=== PATIENT | male | born 1940 | race Caucasian/White ===

== ENCOUNTER 2017-11-10 13:51 | Inpatient (IN) | payer MEDICARE ==
--- OUTSIDE RECORDS SUMMARY | 2017-11-10 14:10 | XMS REPORT ---
:1940 External Reference #:[id number] Author Organization [facility] Address [address] [place] [address] Phone [phone] Care Team Providers Name Role Phone Yossi Vogel MD Care Team Information Piping Supervisor Unavailable Yossi Vogel MD Primary Care Physician Unavailable Payers Type Date Identification Numbers Payment Provider Subscriber Commercial Effective: Policy Number: Medicare Jewel clarence Hanson 2017 [id number] Group Number: [id number] [address] [address] Group Name: [place] [address] PayID: [id number] Problems Description No Information Family History Date Family Member(s) Problem(s) Comments Father due to [place] () - age 68 Social History Type Date Description Comments Smoking Patient is a former smoker Allergies, Adverse Reactions, Alerts Date Description Reaction Status Severity Comments 11/06/2017 NKDA active Nkma active Medications Medication Date Status Form Strength Qnty SIG Indications Ordering Provider Livalo 11/06/ Active Tablets 1mg 30tab one po daily I73.9 Yossi Santillan 2018 s Mk sotelo MD Spiriva 11/06/ Active Capsules 18mcg 30cap inhale once J44.9 Yossi Santillan Handihaler 2018 s daily. Mk sotelo MD Ramipril / Active Capsules 2.5mg 1 by mouth Unknown 0000 every day Cialis / Active Tablets 20mg take one-half Unknown 0000 to one tablet by mouth as needed Clopidogrel / Active Tablets 75mg 1 by mouth Unknown Bisulfate 0000 every day Epipen 2-Riccardo / Active Solution 0.3mg/0.3 use as Unknown 0000 Auto-Inje ML directed for ct anaphylaxis - wheat allergy Glipizide / Active Tablets 5mg take one Unknown 0000 tablet by mouth twice a daytwo tabs before breakfast Lantus / Active Solution 100Unit/M inject 12 Unknown 0000 L units at bedtime, up to 30 units TDD Nitroglycerin / Active Patches 0.4mg/HR take one Unknown 0000 24HR sublingually with chest pain - can repeat x3 Advil / Active Capsules 200mg 1/2 tab daily Unknown 0000 for pain BD Insulin / Active Misc 31G X once daily Unknown Syringe 0000 516" 0.5 with Lantus Ultrafine ML II/Short/0.5ML/ 31G X 5/16" Freestyle Lite / Active Strips test BG three Unknown Test 0000 times daily Immunizations CPT Code Status Date Vaccine Lot # [id number] Given 11/06/2017 Pneumococcal Conjugate Vacc-13 [id number] Vital Signs Date Vital Result Comment 11/06/2017 BP Systolic 160 mmHg BP Diastolic 92 mmHg Heart Rate 92 /min Body Temperature 97.3 F Height 68 inches 5'8" Weight 145.00 lb BMI (Body Mass Index) 22.0 kg/m2 11/04/1997 BP Systolic 140 mmHg BP Diastolic 84 mmHg Body Temperature 97.3 F Height 69.00 inches 5'9" Weight 167.00 lb Right Visual Acuity Distance 20/20/20 Left Visual Acuity Distance 20/20/20 Results Description No Information Procedures Description No Information Plan of Care Future Appointment(s):12/11/2017 8:40 am - Yossi [facility] at [facility] Ifzthb9711/06/2017 - Yossi Vogel MDI73.9 Peripheral vascular disease, unspecifiedNew Medication:Livalo 1 mgJ44.9 Chronic obstructive pulmonary disease, unspecifiedNew Medication:Spiriva Handihaler 18 mcgNew Xrays: Pulmonary Function, Spirometry, pre- and post bronchodilatorCT Chest W/O ContrastFollow up:one [id number] Encounter for immunization
[2017-11-10 14:22] LABS: ABS Basophils 0 10^3/ul (0-0.2); ABS Eosinophils 0 10^3/ul (0-0.6); ABS Lymphocytes 1.3 10^3/ul (1.0-4.8); ABS Monocytes 0.7 10^3/ul (0-0.8); ABS Neutrophils 10.1 10^3/ul (1.5-7.7); ABS Nucleated RBC 0 10^3/ul; Eosinophil % 0.1 % (0-6); Hematocrit 35 % (42-52); Hemoglobin 11.5 g/dl (14.0-18.0); Lymphocyte % 10.9 % (25-47); Mean Corpuscular HGB Conc 33 g/dl (31-36); Mean Corpuscular Hemoglobin 26 pg (27-31); Mean Corpuscular Volume 78 fL (80-94); Mean Platelet Volume 6 um3 (7.4-10.4); Nucleated Red Blood Cells % 0; Platelet Count 729 10^3/ul (150-450); Red Blood Count 4.43 10^6/ul (4.0-5.4); Red Cell Distribution Width 14 % (10.5-15); White Blood Count 12.2 10^3/ul (3.5-10.8)
[2017-11-10 14:39] LABS: EGFR Non-African American 57.3 (>60); INR 1.12 (0.77-1.02)
[2017-11-10] MEDS ORDERED: Heparin for STEMI(*) 5,000 UNITS/ML 1 ML VIAL IV ONE (14:51)
[2017-11-10] MEDS ORDERED: Aspirin Low Dose CHEW TAB* 81 MG PO ONE (14:51)
--- NOTE | 2017-11-10 15:02 | RAD ---
INDICATION: Shortness of breath. COMPARISON: Comparison is made with prior chest x-ray study from December 10, 2015. TECHNIQUE: A portable view of the chest was obtained. FINDINGS: Cardiac and mediastinal contours appear to be within normal limits. There is diffuse prominence of the interstitial markings and a small right pleural effusion which are new from the prior study. IMPRESSION: FINDINGS MOST CONSISTENT WITH CONGESTIVE HEART FAILURE.
[2017-11-10] MEDS ORDERED: Metoprolol Tartrate IV* 1 MG/ML 5 ML VIAL IV ONE (15:04)
[2017-11-10] MEDS ORDERED: Metoprolol Tartrate IV* 1 MG/ML 5 ML VIAL ONE (15:06)
[2017-11-10] MEDS ORDERED: Heparin(*) 1000 UNIT/ML 10 ML VIAL CATH LAB IV ONE (15:13)
[2017-11-10] MEDS ORDERED: fentaNYL* 50 MCG/ML 2 ML VIAL (100 MCG VIAL) ONE (15:13)
[2017-11-10] MEDS ORDERED: Lidocaine 1% INJ* 10 MG/ML 30 ML SDV ONE (15:14)
[2017-11-10] MEDS ORDERED: nitroGLYCERIN DRIP* 0 MCG/0 ML BTL ONE (15:14)
[2017-11-10] MEDS ORDERED: Heparin 2 UNITS/ML IVPREMIX* 3,000 ML IV ONE (15:14)
[2017-11-10] MEDS ORDERED: Midazolam* 1 MG/ML 10 ML VIAL (10 MG) ONE ×2 (15:14→15:47)
[2017-11-10] MEDS ORDERED: Iohexol 350 (CONTRAST) 200 ML MDV IV ONE (15:16)
[2017-11-10] MEDS ORDERED: Iodixanol* (CONTRAST) 320 MG/ML 100 ML SDV ONE ×3 (15:17→16:21)
[2017-11-10] MEDS ORDERED: nitroGLYCERIN DRIP* 25,000 MCG/250 ML BTL ONE ×2 (15:50→17:16)
[2017-11-10] MEDS ORDERED: Bivalirudin(*) 250 MG VIAL ONE (15:55)
[2017-11-10] MEDS ORDERED: NS 0.9% 1000 ML* 1,000 ML IV SCH (17:30)
[2017-11-10] MEDS ORDERED: Furosemide IV* 10 MG/ML 2 ML VIAL (20 MG) ONE (17:53)
[2017-11-10] MEDS ORDERED: Furosemide IV* 10 MG/ML 2 ML VIAL (20 MG) IV ONE (17:53)
--- NOTE | 2017-11-10 18:36 | ED ---
Elizabeth Mckeon Nilda, scribed for Anastacio Alejandro MD on 11/10/17 at 1400 . Respiratory - HPI Summary HPI Summary: This patient is a 77 year old M BIBA with a chief complaint of SOB since earlier today. Per EMS, on arrival, pt was found tachycardic and unresponsive. EMS did synchronized cardioversion. Pt became aystolic with 1 minute of CPR. Pt became responsive. He states he currently has no memory of what happened. The patient rates the pain 0/10 in severity. Symptoms aggravated by nothing. Patient denies current CP and SOB. - History of Current Complaint Stated Complaint: UNRESPONSIVE Hx Obtained From: Patient, EMS Onset/Duration: Sudden Onset, Lasting Minutes, Resolved Current Severity: None Pain Intensity: 0 Aggravating Factor(s): Nothing Associated Signs and Symptoms: SOB - resolved - Allergy/Home Medications Allergies/Adverse Reactions: Allergies Allergy/AdvReac Type Severity Reaction Status Date / Time wheat Allergy Palpitation Verified 11/10/17 14:20 s Home Medications: Home Medications Clopidogrel TAB* [Plavix TAB*] 75 mg PO DAILY 11/10/17 [History Confirmed ] Insulin GLARGINE(*) [Lantus(*)] 12 - 14 units SUBCUT DAILY 11/10/17 [History Confirmed 11/10/17] Nitroglycerin TAB 0.4 MG* 0.4 mg SL Q5M PRN 11/10/17 [History Confirmed 11/10/17 ] Tiotropium CAP.INH* [Spiriva CAP.INH*] 1 cap.inh INH DAILY 11/10/17 [History Confirmed 11/10/17] PMH/Surg Hx/FS Hx/Imm Hx Endocrine/Hematology History: Reports: Hx Diabetes Cardiovascular History: Reports: Hx Aneurysm, Hx Hypercholesterolemia, Hx Hypertension, Hx Rheumatic Fever, Other Cardiovascular Problems/Disorders Denies: Hx Pacemaker/ICD Respiratory History: Reports: Hx Chronic Obstructive Pulmonary Disease (COPD), Other Respiratory Problems/Disorders - EMPHYSEMA History: Reports: Hx Benign Prostatic Hyperplasia, Other Problems/ Disorders - bph Musculoskeletal History: Reports: Hx Arthritis, Other Musculoskeletal History - arthritis-osteo Sensory History: Reports: Hx Contacts or Glasses Denies: Hx Hearing Aid Opthamlomology History: Reports: Hx Contacts or Glasses Neurological History: Reports: Hx Transient Ischemic Attacks (TIA), Other Neuro Impairments/Disorders - HX OF LANDRY ANEURYSM Psychiatric History: Denies: Hx Panic Disorder - Surgical History Surgery Procedure, Year, and Place: carotid endarterectomy right/right arm orif Hx Anesthesia Reactions: No - Social History Alcohol Use: None Substance Use Type: Reports: None Hx Tobacco Use: Yes - QUIT APPROX 12YRS AGO Smoking Status (MU): Former Smoker Review of Systems Positive: Other - tachycardic . Negative: Chest Pain Positive: Shortness Of Breath - resolved Neurological: Other - unresponsive (resolved) All Other Systems Reviewed And Are Negative: Yes Physical Exam - Summary Physical Exam Summary: VITAL SIGNS: Reviewed. GENERAL: Patient is a well-developed and nourished elderly who is lying comfortable in the stretcher in [facility]. Patient is not in any acute respiratory distress. HEAD AND FACE: No signs of trauma. No ecchymosis, hematomas or skull depressions. No sinus tenderness. EYES: PERRLA, EOMI x 2, No injected conjunctiva, no nystagmus. EARS: Hearing grossly intact. Ear canals and tympanic membranes are within normal limits. MOUTH: Oropharynx within normal limits. NECK: Supple, trachea is midline, no adenopathy, no JVD, no carotid bruit, no c- spine tenderness, neck with full ROM. CHEST: Symmetric, no tenderness at palpation LUNGS: Clear to auscultation bilaterally. No wheezing or crackles. CVS: Regular rate and rhythm, S1 and S2 present, no murmurs or gallops appreciated. ABDOMEN: Soft, non-tender. No signs of distention. No rebound no guarding, and no masses palpated. Bowel sounds are normal. EXTREMITIES: FROM in all major joints, no edema, no cyanosis or clubbing. NEURO: Alert and oriented x 3. No acute neurological deficits. Speech is normal and follows commands. SKIN: Dry and warm Triage Information Reviewed: Yes Vital Signs On Initial Exam: Initial Vitals Pulse Resp BP Pulse Ox 99 20 155/76 99 11/10/17 14:00 11/10/17 14:00 11/10/17 14:00 11/10/17 14:00 Vital Signs Reviewed: Yes Diagnostics - Vital Signs Vital Signs Temp Pulse Resp BP Pulse Ox 11/10/17 16:27 98.0 F 99 18 112/77 100 11/10/17 15:10 106 22 97 02/02/18 15:05 103 20 98 11/10/17 15:00 106 24 150/74 99 11/10/17 14:55 99 20 99 11/10/17 14:50 92 19 99 11/10/17 14:45 95 19 99 11/10/17 14:30 96 17 135/69 98 11/10/17 14:25 101 19 98 11/10/17 14:24 140/67 11/10/17 14:11 97.6 F 104 20 155/83 99 11/10/17 14:00 99 20 155/76 99 - Laboratory Lab Results: Lab Results 11/10/17 11/10/17 11/10/17 Range/Units 14:08 14:08 14:08 WBC (3.5-10.8) 10^3/ul RBC (4.0-5.4) 10^6/ul Hgb (14.0-18.0) g/dl Hct (42-52) % MCV (80-94) fL MCH (27-31) pg MCHC (31-36) g/dl RDW (10.5-15) % Plt Count (150-450) 10^3/ul MPV (7.4-10.4) um3 Neut % (Auto) (38-83) % Lymph % (Auto) (25-47) % Baca % (Auto) (1-9) % Eos % (Auto) (0-6) % Baso % (Auto) (0-2) % Absolute Neuts (auto) (1.5-7.7) 10^3/ul Absolute Lymphs (auto) (1.0-4.8) 10^3/ul Absolute Monos (auto) (0-0.8) 10^3/ul Absolute Eos (auto) (0-0.6) 10^3/ul Absolute Basos (auto) (0-0.2) 10^3/ul Absolute Nucleated RBC 10^3/ul Nucleated RBC % INR (Anticoag Therapy) 1.12 H (0.77-1.02) APTT 29.3 (26.0-36.3) seconds D-Dimer, Quantitative 986 H (Less Than 230) ng/mL Sodium 129 L (133-145) mmol/L Potassium 4.1 (3.5-5.0) mmol/L Chloride 95 L (101-111) mmol/L Carbon Dioxide 24 (22-32) mmol/L Anion Gap 10 (2-11) mmol/L BUN 33 H (6-24) mg/dL Creatinine 1.22 H (0.67-1.17) mg/dL Est GFR ( Amer) 73.7 (>60) Est GFR (Non-Af Amer) 57.3 (>60) BUN/Creatinine Ratio 27.0 H (8-20) Glucose 334 H (70-100) mg/dL Lactic Acid (0.5-2.0) mmol/L Calcium 9.4 (8.6-10.3) mg/dL Magnesium 2.2 (1.9-2.7) mg/dL Total Bilirubin 0.50 (0.2-1.0) mg/dL AST 32 (13-39) U/L ALT 30 (7-52) U/L Alkaline Phosphatase 92 (34-104) U/L Total Creatine Kinase 68 (10-223) U/L CK-MB (CK-2) 8.4 H (0.6-6.3) ng/mL Troponin I 3.47 H* (<0.04) ng/mL B-Natriuretic Peptide 1044 H ( - 100) pg/mL Total Protein 7.0 (6.4-8.9) g/dL Albumin 3.1 L (3.2-5.2) g/dL Globulin 3.9 (2-4) g/dL Albumin/Globulin Ratio 0.8 L (1-3) TSH 2.51 (0.34-5.60) mcIU/mL 18 11/10/17 Range/Units 14:08 14:08 WBC 12.2 H (3.5-10.8) 10^3/ul RBC 4.43 (4.0-5.4) 10^6/ul Hgb 11.5 L (14.0-18.0) g/dl Hct 35 L (42-52) % MCV 78 L (80-94) fL MCH 26 L (27-31) pg MCHC 33 (31-36) g/dl RDW 14 (10.5-15) % Plt Count 729 H (150-450) 10^3/ul MPV 6 L (7.4-10.4) um3 Neut % (Auto) 82.7 (38-83) % Lymph % (Auto) 10.9 L (25-47) % Baca % (Auto) 5.9 (1-9) % Eos % (Auto) 0.1 (0-6) % Baso % (Auto) 0.4 (0-2) % Absolute Neuts (auto) 10.1 H (1.5-7.7) 10^3/ul Absolute Lymphs (auto) 1.3 (1.0-4.8) 10^3/ul Absolute Monos (auto) 0.7 (0-0.8) 10^3/ul Absolute Eos (auto) 0 (0-0.6) 10^3/ul Absolute Basos (auto) 0 (0-0.2) 10^3/ul Absolute Nucleated RBC 0 10^3/ul Nucleated RBC % 0 INR (Anticoag Therapy) (0.77-1.02) APTT (26.0-36.3) seconds D-Dimer, Quantitative (Less Than 230) ng/mL Sodium (133-145) mmol/L Potassium (3.5-5.0) mmol/L Chloride (101-111) mmol/L Carbon Dioxide (22-32) mmol/L Anion Gap (2-11) mmol/L BUN (6-24) mg/dL Creatinine (0.67-1.17) mg/dL Est GFR ( Amer) (>60) Est GFR (Non-Af Amer) (>60) BUN/Creatinine Ratio (8-20) Glucose (70-100) mg/dL Lactic Acid 2.5 H* (0.5-2.0) mmol/L Calcium (8.6-10.3) mg/dL Magnesium (1.9-2.7) mg/dL Total Bilirubin (0.2-1.0) mg/dL AST (13-39) U/L ALT (7-52) U/L Alkaline Phosphatase (34-104) U/L Total Creatine Kinase (10-223) U/L CK-MB (CK-2) (0.6-6.3) ng/mL Troponin I (<0.04) ng/mL B-Natriuretic Peptide ( - 100) pg/mL Total Protein (6.4-8.9) g/dL Albumin (3.2-5.2) g/dL Globulin (2-4) g/dL Albumin/Globulin Ratio (1-3) TSH (0.34-5.60) mcIU/mL Result Diagrams: 11/10/17 14:08 11/10/17 14:08 Lab Statement: Any lab studies that have been ordered have been reviewed, and results considered in the medical decision making process. - Radiology CXR Radiology Interpretation Completed By: Radiologist - CXR, per radiologist, reveals findings most consistent with CHF. Dr. Alejandro reviewed this report. - EKG 1353 Cardiac Rate: Tachycardia EKG Rhythm: Sinus Tachycardia - 106 bpm EKG Interpretation: ST depression and T wave inversion in V2-V6 consistent w/ acute lateral MD Disposition - Course Assessment/Plan: This patient is a 77 year old M BIBA with a chief complaint of SOB since earlier today. Per EMS, on arrival, pt was found tachycardic and unresponsive. Pt became asystolic with 1 minute of CPR. They reported one episode of V tach EMS did synchronized cardioversion. Pt became responsive and A+O. He states he currently has no memory of what happened. The patient rates the pain 0/10 in severity. Symptoms aggravated by nothing. Patient denies current CP and SOB. EKg showed an ST depression and T wave inversion in the lateral leads consisting with acute lateral MD. Trop 3.47. [1431] Dr. Light (manager switch) agrees to review the case. [1500] Dr. Grant ( ventilating equipment installer) will take pt to [place] lab technician for ST elevation. In the ED course, the patient was given aspirin, Heparin, and Metoprolol. The pt is hemodynamically stable, alert and oriented x3. - Differential Dx - Cardiopulmonary Differential Diagnoses - Cardiopulmonary: Atrial Fibrillation, Atrial Flutter, Exacerbation Of COPD, Paroxysmal SVT, Paroxysmal VT - Diagnoses Provider Diagnoses: Acute myocardial infarction, Renal failure, Increased D Dimer, Hyperglycemia - Physician Notifications Discussed Care Of Patient With: John Grant - interventionalist Time Discussed With Above Provider: 15:00 Instructed by Provider To: Admit As Inpatient - to corn lab technician - Critical Care Time Critical Care Time: 30-74 min Discharge - Discharge Plan Condition: Stable Disposition: ADMITTED TO [facility] The documentation as recorded by the Elizabeth montano Nilda accurately reflects the service I personally performed and the decisions made by me, Anastacio Alejandro MD.
[2017-11-10 20:19] VITALS: BP 157/83
--- NOTE | 2017-11-12 10:21 | CATH ---
CC: Dr. Yossi Giles, [facility]; Dr. Trenton Muniz * CARDIAC CATHETERIZATION REPORT: DATE OF PROCEDURE: 11/10/17 - ROOM #ICU-12 REASON FOR CARDIAC CATHETERIZATION: The patient with history of shortness of breath, now presents with having had a syncopal episode with sustained wide complex tachycardia assumed to be ventricular tachycardia, successfully cardioverted in the field, with transient 1-minute CPR compression, to assess for the presence of significant coronary artery disease with abnormal EKG showing T wave inversions in the mid-to-late precordial leads of I and aVL. PROCEDURE: Coronary arteriography, left heart catheterization, left ventriculography. DESCRIPTION OF PROCEDURE: The patient was interviewed and examined in the emergency room where the risks and benefits were explained to him. He understood them and wished to proceed. Of note, the patient has been on chronic clopidogrel therapy and received a full dose aspirin in the emergency room as well as 4000 units of heparin and 2.5 mg of Lopressor intravenously. Medications given during the cardiac catheterization included institution of a nitroglycerin drip, advanced to 4 mcg per minute by the end of the case, and low -dose Versed. The equipment utilized was a 6.5-Syrian Merit sheath in addition to a 5-Syrian 4 right Kristen diagnostic catheter and a 5-Syrian 4 curve left Kristen catheter. Of note, to get better visualization of the left main with better angulation, a 4.5 curve FL Kristen 5-Syrian catheter was utilized. Left heart catheterization was performed utilizing a 5-Syrian angled pigtail catheter. Hemostasis technique at the end of the case was with manual compression due to the significant vascular disease within the femoral area including the ostium of the profunda branch, as well as the superficial left femoral artery. The total contrast used was 110 cc of Visipaque dye. Radiation exposure included 11.1 minutes of fluoro time. The air kerma radiation was 978 milligray. The DAP radiation was 5762 microgray per meter squared. Laboratory results prior to cardiac catheterization included hemoglobin and hematocrit of 11.5 and 35. The BUN and creatinine was 33 and 1.2. The potassium was 4.1 and sodium was 129. The total CPK was 68, the MB was 8.4. Troponin was 3.47. B-natriuretic peptide was 1044. Lactic acid was 2.5. RESULTS: HEMODYNAMIC DATA: Left heart catheterization - Central aortic pressure was recorded at 140/63 with a mean of 95, left ventricular pressure 137, with a left ventricular end- diastolic pressure of 31 to 34 mmHg. LEFT VENTRICULOGRAPHY: Performed in the MORENO projection, revealed severe global left ventricular hypokinesis globally, with overall EF estimated at 25% to 30%. Of note, the most proximal portion of the anterior wall had normal contractility. The rest of the ventricle had severe hypokinesis with virtual akinesis of the high anterolateral wall. CORONARY ARTERIOGRAPHY: A. Right coronary artery - totally occluded proximal with bridging collaterals noted filling the mid portion of the vessel with competitive flow seen to the mid- to-distal portion. The length of total occlusion appear to be long in nature. B. Left coronary artery. 1. Left main - of note, there was calcium seen at the ostium of the left main. In most views, the left main appeared to have lziy-qw-rqeabbwl disease at most. However, intermittent mild damping was noted with catheter placement. Utilization of the 4.5 curve with a better angulation to the left main still produced very mild dampening. Of note, there was no true ventricularization of the pressure tracing and reflux was noted whenever the catheter was inserted. Subselective injections were made as well around the left main from just below it in an attempt to visualize the flow better. 2. Left anterior descending artery. A diffusely diseased vessel throughout the course of the vessel. In the proximal portion there was mild-to- moderate disease with 35% to 40% narrowing noted, with calcification, just after the first septal casket trimmer with a moderate area of 45% to 50% narrowing. In the mid segment, there was an area of narrowing as much as 65% to 70% noted. Past this point was another area of 55% to 60% narrowing in the mid-to- distal area. The artery went on to supply the apex and distal inferior wall. Of note, in general, the pno-xq-lfltvm diagonal branches appeared to be small caliber and diffusely diseased. The first diagonal branch of the left anterior descending artery was a thin caliber vessel with an area of 90% to 95% stenosis. It should be noted that it did supply the anterolateral toward apical region. It did not appear to be a vessel for which primary intervention could be attempted. 3. Circumflex artery - a nondominant vessel supplying a very high first obtuse marginal branch, which had moderate diffuse disease throughout its proximal portion with calcium as well. The degree of luminal reduction appeared to be approximately 45% to 50%. In the vnx-zc-nnqfds portion of this vessel, there was an abrupt caliber change of at least 55% to 60% to a very thin distal vessel. Immediately following this area in the circumflex was a diffusely diseased area of 75% to 80% narrowing leading to the rest of the circumflex, which supplied multiple very small caliber obtuse marginal branches and ending in a low-lying posterior left ventricular branch. The diffuse nature of disease is highly suggestive of diffuse involvement from diabetes. OVERALL ASSESSMENT: Significant multi-vessel coronary artery disease, as described, with abnormal mild damping of the left main despite most views by angiography suggesting no critical narrowing of it. In light of the significant left ventricular systolic dysfunction and elevated left ventricular end-diastolic pressure, at this point in time he is quite hemodynamically stable and discussion was held with [facility] as far as transferring him up for stabilization and eventual consideration for perhaps IVUS analysis and possibly intervention to the left main and the LAD. Of note, I do not know if he is a bypass candidate given the very diffuse nature of disease and small caliber nature of the vessels. Given these findings, I am not convinced long-term bypass surgery would be his best option. Perhaps, if significant left main disease is actually found, stenting of the left main after perhaps a rotational atherectomy may be an option if heavy calcified burden is present. In general, his arteries are diffusely diseased, most likely on the basis of his diabetes. Of note, he dose have chronic obstructive lung disease, which may become more high risk for an open heart surgery if that was to be pursued. Clearly, at this point in time, transfer to a higher level care center that could perform all of the above assessments and make the appropriate decision for continued care is paramount to his stabilization from his cardiac status. Discussion was made with the interventional on-call physician, Dr. Severino Killian. He was of great assistance in contacting the transfer service to initiate transfer of the patient. For now, we will maintain him on intravenous nitroglycerin and we will give him Lasix IV for his elevated left ventricular end- diastolic pressure. His chest x-ray does have evidence of congestive heart failure. Hemodynamically, he is stable and asymptomatic with excellent oxygenation on low-dose supplemental oxygen. [id number]/[facility] #: [id number] [facility]
== END 2017-11-10 20:10 | disposition short-term general hospital (02) | DRG 282 ==
LOC: ED 13:51 → CHICATH 15:44 → ICU 17:24
PROVIDERS: ADMIT Internal Medicine Cardiovascular Disease; ATTEND Internal Medicine Cardiovascular Disease
PROC: B211YZZ Fluoroscopy of Multiple Coronary Arteries using Other Contrast (ICD-10-PCS; 2017-11-10)
PROC: B215YZZ Fluoroscopy of Left Heart using Other Contrast (ICD-10-PCS; 2017-11-10)
PROC: 4A023N7 Measurement of Cardiac Sampling and Pressure, Left Heart, Percutaneous Approach (ICD-10-PCS; principal; 2017-11-10 15:00)
DX: I21.3 ST elevation (STEMI) myocardial infarction of unspecified site (principal); I71.2 Thoracic aortic aneurysm, without rupture; E11.9 Type 2 diabetes mellitus without complications; I25.119 Atherosclerotic heart disease of native coronary artery with unspecified angina pectoris; I11.9 Hypertensive heart disease without heart failure; E78.5 Hyperlipidemia, unspecified; J44.9 Chronic obstructive pulmonary disease, unspecified; N40.0 Benign prostatic hyperplasia without lower urinary tract symptoms; M19.90 Unspecified osteoarthritis, unspecified site; Z86.73 Personal history of transient ischemic attack (TIA), and cerebral infarction without residual deficits; Z91.018 Allergy to other foods; Z79.4 Long term (current) use of insulin; Z79.899 Other long term (current) drug therapy
CPT/HCPCS: 36415; 71045; 80053; 82550; 82553; 83605; 83735; 83880; 84443; 84484; 85025; 85379; 85610; 85730; 93005; 93458; 96374; 96375; 99156; 99157; 99285; A9270-GY; C1769; J0583; J1644; J1940; J2250; J3010; J3490

== ENCOUNTER 2017-12-13 15:09 | Inpatient (IN) | payer MEDICARE ==
[2017-12-13] MEDS ORDERED: NS 0.9% 1000 ML* 1,000 ML IV ONE (15:13)
--- OUTSIDE RECORDS SUMMARY | 2017-12-13 15:14 | XMS REPORT ---
:1940 External Reference #:[id number] Author Organization [facility] Address [address] [address] Phone [phone] Care Team Providers Name Role Phone Trenton Muniz MD Primary Care Physician Unavailable Payers Type Date Identification Numbers Payment Provider Subscriber Health Maintenance Policy Number: Medicare Blue Ppo Hugo Gaxiola (O) [id number] PayID: [id number] [address] [address] [place] [address] Problems Description No Information Family History Date Family Member(s) Problem(s) Comments : (age 68 Years) Father due to AR : (age 87 Years) Mother due to Natural Causes hx AR Siblings 1 Social History Type Date Description Comments Marital Status Single Lives With Girlfriend Lives With Girlfriend 3/2 pt presently rehab at [facility] ETOH Use Denies alcohol use ETOH Use Denies alcohol use drank heavily in the past Smoking Patient is a former smoker Recreational Drug Use Denies Drug Use Smoking Patient is a former smoker quit 2004 Daily Caffeine Consumes on average 2 cups of regular coffee per day Exercise Type/Frequency Does not exercise Allergies, Adverse Reactions, Alerts Date Description Reaction Status Severity Comments 05/10/2006 Lipitor active epistaxis 12/08/2017 Wheat Germ Oil active Medications Medication Date Status Form Strength Qnty SIG Indications Ordering Provider Torsemide 12/08 Active Tablets 20mg 30tab 2 by mouth I50.22 s daily Aura Flores M.D. Metoprolol 12/08 Active Tablets ER 25mg 180ta 1 by mouth Antonio Succinate ER 24HR bs twice a day Aura Flores M.D. Oxygen 12/08 Active Misc 2L 1unit please use o2 s at 2l/min at F. all times Del Flores Aspirin Active Tablets 81mg 1 by mouth Unknown Enteric Coated /0000 every day Humulin 70/30 Active Suspension (70-30)10 Coverage from Unknown /0000 0Unit/ML 151-450 BG Lantus Active Solution 100Unit/M 15u at hs Unknown Solostar /0000 Pen-Inject L Spiriva Active Capsules 18mcg 1 unit Unknown Handihaler /0000 inhalation daily Prednisone Active Tablets 5mg take 8 tabs Unknown /0000 by mouth daily for 3 days, then 4 tabs daily for 3 days then 2 tabs for 3 days then 1 tab for 3 days then d/c Atorvastatin Active Tablets 20mg take 1 tablet Unknown Calcium /0000 at bedtime Clopidogrel Active Tablets 75mg 1 by mouth Unknown Bisulfate / every day Amiodarone HCL Active Tablets 200mg 30tab 1 by mouth Antonio s once a day Aura Flores M.D. Glipizide ER Active Tablets ER 5mg 1 by mouth Unknown /0000 24HR bid Altace 05/10 Hx Capsules 10mg 30cap 1 PO qd lior Flores, 12/07.D Glyburide 05/10 Hx Tablets Unsure 30tab 1 po qd lior Flores, 12/07 takes .D sporadically Zocor 05/10 Hx Tablets Unsure 30tab One QHS lior Flores, 12/07.D Metformin Hx Tablets 1,000mg 1 by mouth Unknown /0000 twice a day - 12/07 Atenolol Hx Tablets 25mg 1 tablet by Unknown /0000 mouth every - day 12/07 Metoprolol Hx Tablets ER 50mg 1 by mouth Unknown Succinate ER /0000 24HR bid - 12/08 Furosemide 00 Hx Tablets 80mg 1 by mouth Unknown /0000 daily - 12/08 Vital Signs Date Vital Result Comment 12/08/2017 Heart Rate 60 /min BP Systolic Sitting 138 mmHg Ra, reg cuff BP Diastolic Sitting 62 mmHg Ra, reg cuff O2 % BldC Oximetry 98 % 2L 05/10/2006 Height 70 inches 5'10" Weight 163.00 lb Heart Rate 74 /min BP Systolic Sitting 178 mmHg left arm, right arm 180/96 BP Diastolic Sitting 90 mmHg left arm, right arm 180/96 BP Systolic Standing 170 mmHg BP Diastolic Standing 98 mmHg BMI (Body Mass Index) 23.4 kg/m2 Results Description No Information Procedures Date CPT Code Description Status 12/08/2017 06880 EKG Tracing & Interpretation Completed 11/10/2017 48567 Left Heart Cath. Incl S/I Coronaries, Angio S/I V Gram Completed If Done 02/04/2014 11831 ECHO Transthorasic Realtime 2D W Doppler & Color Completed Flow Hosp 05/15/2006 54610 Stress ECHO Interpretation/Report Hospital Completed 05/15/2006 71050 Treadmill Interp/Report Only Completed 05/15/2006 42072 Treadmill Interp/Report Only Completed 05/15/2006 76365 Stress Test Supervsn W/Out I/R Completed 05/12/2006 15031 Color Doppler Completed 05/12/2006 95721 Color Doppler Completed 05/12/2006 96376 Pulse Doppler & Continuous Wave Completed 05/12/2006 40387 Echocardiogram Completed 05/12/2006 93377 Echocardiogram Completed 05/10/2006 86973 EKG Tracing & Interpretation Completed 05/10/2006 39551 EKG Tracing & Interpretation Completed Encounters Type Date Location Provider CPT E/M Dx Office Visit 02/03/2014 [facility] Riri Penaloza M.D. 52790 435.9 1:19p [facility] 433.10 401.9 Office Visit 05/10/2006 3:40p [facility] Antonio Flores, 47746 794.31 Del Plan of Care Future Appointment(s):01/23/2018 1:00 pm - Antonio Flores M.D. at [facility]12/15/2017 9:30 am - Lucia Gage N.P. 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 ov JFM 1 mRecommendations:2 gm sodium heart healthy diet.
[2017-12-13 15:48] LABS: ABS Basophils 0 10^3/ul (0-0.2); ABS Eosinophils 0 10^3/ul (0-0.6); ABS Lymphocytes 0.3 10^3/ul (1.0-4.8); ABS Monocytes 0.4 10^3/ul (0-0.8); ABS Neutrophils 13.5 10^3/ul (1.5-7.7); ABS Nucleated RBC 0 10^3/ul; Eosinophil % 0 % (0-6); Hematocrit 33 % (42-52); Mean Corpuscular HGB Conc 33 g/dl (31-36); Mean Corpuscular Hemoglobin 29 pg (27-31); Mean Corpuscular Volume 86 fL (80-94); Mean Platelet Volume 7 um3 (7.4-10.4); Nucleated Red Blood Cells % 0; Platelet Count 350 10^3/ul (150-450); Red Blood Count 3.85 10^6/ul (4.0-5.4); Red Cell Distribution Width 17 % (10.5-15); White Blood Count 14.2 10^3/ul (3.5-10.8)
[2017-12-13 15:58] LABS: INR 1.04 (0.77-1.02)
[2017-12-13 16:03] LABS: EGFR Non-African American 39.3 (>60)
--- NOTE | 2017-12-13 16:28 | RAD ---
Indication: Shortness of breath. 2 views of the chest are reviewed and compared to previous exam dated November 10, 2017. Right upper lobe infiltrate is present which is progressed since previous exam. There is right pleural effusion and right basilar infiltrate noted. Underlying interstitial edema with bilateral pleural effusions are likely present. IMPRESSION: There is suggestion of vascular congestion with persistent right upper lobe airspace disease. Bilateral pleural effusions are noted.
[2017-12-13] MEDS ORDERED: Levofloxacin 750 MG IVPREMIX(* 750 MG/150 ML BAG IVPB ONE (16:35)
[2017-12-13 17:52] LABS: Urine Appearance Clear; Urine Blood 2+ (Negative); Urine Color Yellow; Urine Ketones Negative (Negative); Urine Protein Negative (Negative); Urine Urobilinogen Negative (Negative)
[2017-12-13] MEDS ORDERED: Furosemide IV* 10 MG/ML 2 ML VIAL (20 MG) IV ONE (18:34)
[2017-12-13] MEDS ORDERED: Acetaminophen TAB* 325 MG PO PRN (18:57)
[2017-12-13] MEDS ORDERED: Al Hydrox/Mg Hydrox/Simet LIQ* 30 ML UDC PO PRN (18:57)
[2017-12-13] MEDS ORDERED: Vancomycin per Pharmacy* NOTE FOLLOW UP PRN (20:14)
[2017-12-13] MEDS ORDERED: Cefepime 2 GM in Dextrose(*) 2 GM/50 ML BAG IV SCH (21:00)
[2017-12-13] MEDS ORDERED: Vancomycin(*) 1,000 MG in NS 0.9% 250 ML* 250 ML IVPB ONE ×4 (21:00)
[2017-12-13] MEDS ORDERED: Insulin GLARGINE(*) 1 UNITS UNIT SUBCUT SCH (21:00)
[2017-12-13] MEDS ORDERED: Insulin LISPRO* 1 UNITS UNIT SUBCUT ONE (23:17)
[2017-12-13] MEDS: Metoprolol Succinate XL TAB* 25 MG PO SCH (23:46)
[2017-12-13] MEDS: Heparin VIAL(*) 5000 UNITS/ML VIAL (FIVE THOUSAND) SUBCUT SCH (23:51)
[2017-12-14] MEDS: Cefepime 1 GM in Dextrose(*) 1 GM/50 ML BAG IV SCH ×3 (00:06→21:57)
[2017-12-14] MEDS ORDERED: Vancomycin(*) 1,000 MG in NS 0.9% 250 ML* 250 ML IVPB ONE (01:45)
[2017-12-14] MEDS: Azithromycin IV(*) 500 MG in NS 0.9% 250 ML* 250 ML IVPB SCH (03:41)
[2017-12-14 03:49] LABS: ABS Basophils 0.1 10^3/ul (0-0.2); ABS Eosinophils 0.1 10^3/ul (0-0.6); ABS Lymphocytes 0.6 10^3/ul (1.0-4.8); ABS Monocytes 0.6 10^3/ul (0-0.8); ABS Neutrophils 10.4 10^3/ul (1.5-7.7); ABS Nucleated RBC 0 10^3/ul; Eosinophil % 0.5 % (0-6); Hematocrit 26 % (42-52); Hemoglobin 8.7 g/dl (14.0-18.0); Lymphocyte % 4.8 % (25-47); Mean Corpuscular HGB Conc 33 g/dl (31-36); Mean Corpuscular Hemoglobin 29 pg (27-31); Mean Corpuscular Volume 86 fL (80-94); Mean Platelet Volume 7 um3 (7.4-10.4); Nucleated Red Blood Cells % 0; Platelet Count 256 10^3/ul (150-450); Red Blood Count 3.05 10^6/ul (4.0-5.4); Red Cell Distribution Width 17 % (10.5-15); White Blood Count 11.7 10^3/ul (3.5-10.8)
[2017-12-14 04:02] LABS: EGFR Non-African American 40.4 (>60)
[2017-12-14] MEDS: Heparin VIAL(*) 5000 UNITS/ML VIAL (FIVE THOUSAND) SUBCUT SCH ×3 (06:14→21:56)
--- NOTE | 2017-12-14 07:15 | HP ---
CC: Dr. Muniz * HISTORY AND PHYSICAL: DATE OF ADMISSION: 12/13/17 PROVIDER: Mesha Sanchez NP PRIMARY CARE PROVIDER: Dr. Muniz. ATTENDING PHYSICIAN WHILE IN THE HOSPITAL: Dr. Mariella Laughlin * (dictated by Mesha Sanchez NP). CHIEF COMPLAINT: Shortness of breath. HISTORY OF PRESENT ILLNESS: Mr. Hanson is a 77-year-old male, who carries a history of diabetes; hypertension; high cholesterol; history of thrombocytosis ; recent V-tach cardiac arrest on 11/10/17; sick sinus rhythm on 11/18/17, with pacemaker placement; history of rheumatic fever; history of chronic systolic CHF ; paroxysmal AFib. Mr. Hanson also recently had bypass surgery on 11/15/17 at [facility] for multivessel heart disease. Mr. Hanson states that since his bypass surgery, he has been short of breath, but states that over the past day, the shortness of breath has become worst. He denied any cough, fever, or chills. He denies any recent illnesses. Denies any nausea , vomiting, or diarrhea. Denies any chest pain. Mr. Hanson is currently residing at [facility] and due to his increased shortness of breath, he was transferred to the emergency room. No fevers have been reported because of his recent bypass surgery and his increased shortness of breath. We were asked to evaluate him for admission. PAST MEDICAL HISTORY: Significant for: 1. Diabetes. 2. Hypertension. 3. High cholesterol. 4. History of thrombocytosis. 5. V-tach cardiac arrest on 11/10/17. 6. Sick sinus syndrome on 11/18/17, with pacemaker placement. 7. Rheumatic fever. 8. Chronic systolic CHF. 9. Paroxysmal AFib. 10. CABG on 11/15/17. PAST SURGICAL HISTORY: 1. CABG, 11/15/17. 2. ORIF of the left arm. 3. Carotid endarterectomy. 4. Cardiac catheterization. 5. Pacemaker placement on 11/18/17. MEDICATIONS: 1. Furosemide 20 mg p.o. daily. 2. Metoprolol succinate 25 mg p.o. b.i.d. 3. Prednisone 5 mg p.o. daily. 4. Spiriva 1 cap daily. 5. Plavix 75 mg p.o. daily. 6. Lantus 10 units subcu at bedtime. 7. Atorvastatin 20 mg p.o. daily. 8. Lispro sliding scale t.i.d. 9. Glipizide 5 mg p.o. daily. 10. Aspirin 81 mg p.o. daily. 11. Amiodarone 200 mg p.o. daily. ALLERGIES TO MEDICATIONS: No medication allergies. He is allergic to WHEAT. FAMILY HISTORY: Mother and father both had MIs. There was no documented diabetes within the family or cancer. SOCIAL HISTORY: The patient reports that he stopped smoking in 2004. Prior to that, he smoked 2 packs per day for 45 years. He denies any alcohol or drug use. His surrogate decision maker in the event he is unable to make his own decisions is his female friend, Radha Palmer, her number is [phone]. REVIEW OF SYSTEMS: There has been no documented fever. There has been no significant weight change. There was no double vision. No ear discharge. No rhinorrhea. No sore throat. He denies any chest pain. He does report shortness of breath and needing to sleep with his head elevated. There is no abdominal pain, no nausea, no vomiting, no diarrhea. Denies any dysuria or urinary frequency or hematuria. Denies any loss of consciousness. Denies pruritus. He does report painful area to the coccyx. Review of 14 systems was completed and all others are negative. PHYSICAL EXAMINATION GENERAL: At this time, Mr. Hanson is a 77-year-old male. He appears in mild respiratory distress, sitting on the stretcher in the emergency room. VITAL SIGNS: Are as follows: Temperature was 98.5, heart rate was 73, respirations are 20, O2 saturation on room air was 97%, blood pressure was 139/ 56. HEENT: Head is atraumatic and normocephalic. Eyes: EOMs are intact. Sclerae anicteric, not pale. Oral mucosa appears to be moist. NECK: Supple. LUNGS: Diminished on the right, crackles on the bilateral bases. He does have mild use of accessory muscles with breathing. His breathing is mildly labored. CARDIAC: S1 and S2. He is in a regular rate and rhythm. ABDOMEN: Soft and nontender. Bowel sounds are present x4. EXTREMITIES: Pulses are +2. He is able to move all 4 extremities with 5/5 strength. Left arm with swelling. Radial pulse is +2. Arm is warm to touch. The patient reports swelling since his bypass surgery. NEUROLOGIC: He is awake and alert and oriented x3. His speech is clear. There are no focal deficits. SKIN: He has generalized purpura/petechiae on his entire body. He is noted to have petechiae on the palmar aspects of bilateral hands. His coccyx is reddened with a large open area of breakdown. DIAGNOSTIC STUDIES/LAB DATA: WBCs were 14.2, RBCs 3.85, hemoglobin 11.0, hematocrit was 33, and platelet count was 350. INR was 1.04, APTT was 28.7. Sodium 132, potassium 5.2, chloride was 93, carbon dioxide was 35. BUN was 77, creatinine was 1.69 which is slightly higher than 12/06/17 when it was 1.67; on 12/04/17, he was 1.93. Glucose was 234, calcium 8.8. ASTs were 16, ALTs were 37. CK-MB was 7.1. Troponin was 0.04. C-reactive protein was 41.08. BNP was 732, which was down from 11/10/17, it was 1044. Procalcitonin was 0.2. Urine pH was 5.0; specific gravity 1.010; urine protein and ketones were negative; urine blood was +2; urine nitrites, bilirubin, were all negative; urine leukocyte esterase was trace; urine wbc's were 1+, rbc's were 2+; urine bacteria was absent; hyaline cast was present; urine glucose was negative. Flu A and B were both negative. Chest x-ray: There is a suggestion of vascular congestion with persistent right upper lobe air space disease, bilateral pleural effusions are noted. The right upper lobe infiltrate is present, which has progressed since the previous exam on 11/10/17. There is a right pleural effusion and a right basilar infiltrate noted. Underlying interstitial edema with bilateral pleural effusions are likely present. ASSESSMENT AND PLAN: Mr. Hanson is a 77-year-old male, who came from [facility] to the emergency room today for evaluation of increased shortness of breath. Chest x-ray showed a right upper lobe and lower lobe infiltrate. He will be admitted to the hospital for: 1. Hospital-acquired pneumonia. He will be placed on cefepime 1 g q.12 hours, vancomycin 1000 mg and then dosing per pharmacy, and azithromycin. We will give oxygen support as needed. He will have blood cultures. The patient is afebrile at this time. 2. Congestive heart failure. I suspect that there may be some underlying vascular congestion. His Lasix was recently changed to furosemide. We will continue him on furosemide p.o., but increase this dose to 40 mg daily. We will continue to offer O2 support as needed. I will get a transthoracic echocardiogram to evaluate his ejection fraction. 3. Recent coronary artery bypass graft/pacemaker. Stable, he denies any chest pain at this time. I will again get a transthoracic echocardiogram to evaluate his heart function. We will continue him on Plavix 75 mg p.o. daily, aspirin 81 mg daily. He will also continue his amiodarone 200 mg p.o. daily. 4. Elevated troponin. His troponin is elevated at 0.04. I suspect this is related to demand ischemia. We will continue to trend his troponins x2 and monitor him on telemetry for arrhythmias. 5. Acute on chronic kidney injury. BUN and creatinine are elevated. We will avoid nephrotoxic medications. 6. Diabetes. We will do fingersticks a.c. and h.s. He will continue on his Lantus and sliding scale. 7. Hyperlipidemia. He will continue on atorvastatin 20 mg p.o. daily. 8. FEN. He will be placed on a carb consistent diet. 9. Code status. He is a full code. 10. DVT prophylaxis. We will place him on heparin 5000 units subcu. 11. Disposition. We will place him inpatient on the telemetry floor. TIME SPENT: On this admission was greater than 60 minutes, greater than half that time was spent [id number] with the patient obtaining his history and physical, the other half the time was spent going over my plan of care and implementing that plan of care. I have discussed this with my attending, Dr. Mariella Laughlin, and she is in agreement with my plan. MESHA SANCHEZ, SENIOR RUBY DEVELOPER [id number]/[facility] #: [id number] SERGIO
[2017-12-14] MEDS ORDERED: Perflutren Lipid Microsphere* 3 ML VIAL ONE (07:59)
--- NOTE | 2017-12-14 08:11 | PN ---
Subjective - Subjective History: Neil Hanson presents with pneumonia and CHF from [facility] following recent CABG/Pacemaker placement. I obtained his presentation from the patient and from Mesha Sanchez, [facility] admitting [facility]. He states he has had shortness of breath since his heart surgery. He has had a cough for 2 days and has had a poor appetite. He denies fevers and chills. He feels weak. His glycemic control is poor at present. 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.3599 Current Medications: Current Medications Acetaminophen (Tylenol Tab*) 650 mg PO Q4H PRN PRN Reason: FEVER/PAIN Al Hydrox/Mg Hydrox/Simethicone (Maalox Plus*) 30 ml PO Q6H PRN PRN Reason: INDIGESTION Amiodarone HCl (Cordarone Tab*) 200 mg PO DAILY [facility] Aspirin (Aspirin Ec Low Dose*) 81 mg PO DAILY [facility] Atorvastatin Calcium (Lipitor*) 20 mg PO DAILY [facility] Clopidogrel Bisulfate (Plavix Tab*) 75 mg PO DAILY [facility] Device (Tiotropium Inhaler Device*) 1 each INH 0900 ONE Stop: 12/14/17 09:01 Dextrose (D50w Syringe 50 Ml*) 12.5 gm IV PUSH .FOR FS < 60 - SS PRN PRN Reason: FS < 60 Heparin Sodium (Porcine) (Heparin Vial(*)) 5,000 units SUBCUT Q8HR [facility] Last Admin: 12/14/17 06:14 Dose: 5,000 units Cefepime HCl (Maxipime 1 Gm In Dextrose Duplex (*)) 1 gm in 50 mls @ 100 mls/ hr IV Q12H [facility] Last Admin: 12/14/17 00:06 Dose: 100 mls/hr Azithromycin 500 mg/ Sodium (Chloride) 250 mls @ 250 mls/hr IVPB Q24H [facility] Last Admin: 12/14/17 03:41 Dose: 250 mls/hr Vancomycin HCl 1,000 mg/ (Sodium Chloride) 250 mls @ 166.667 mls/hr IVPB Q24H [facility] Insulin Glargine (Lantus(*)) 10 units SUBCUT BEDTIME [facility] Last Admin: 12/13/17 23:49 Dose: 10 units Insulin Human Lispro (Humalog*) 0 units SUBCUT AC [facility] PRN Reason: Protocol Metoprolol Succinate (Toprol Xl Tab*) 25 mg PO BID [facility] Last Admin: 12/13/17 23:46 Dose: 25 mg Pharmacy Consult (Vancomycin Per Pharmacy*) 1 note FOLLOW UP . PRN PRN Reason: PER PROTOCOL Pharmacy Profile Note (Vancomycin Trough Check) 1 note FOLLOW UP 2030 ONE Stop: 12/16/17 20:31 Prednisone (Deltasone Tab*) 5 mg PO DAILY [facility] Tiotropium [place] (Spiriva Cap.Inh*) 1 cap INH DAILY [facility] Torsemide (Demadex*) 40 mg PO DAILY [facility] Home Medications: Home Medications Medication Instructions Recorded Confirmed Type glipiZIDE TAB* [Glucotrol TAB*] 5 mg PO DAILY 02/03/14 12/13/17 History Insulin GLARGINE(*) [Lantus(*)] 10 units SUBCUT BEDTIME 11/10/17 12/13/17 History Amiodarone TAB* [Cordarone TAB*] 200 mg PO DAILY 12/13/17 12/13/17 History Aspirin EC Low Dose* [Ecotrin EC 81 mg PO DAILY 12/13/17 12/13/17 History Low Dose 81 MG*] Atorvastatin* [Lipitor*] 20 mg PO DAILY 12/13/17 12/13/17 History Clopidogrel TAB* [Plavix TAB*] 75 mg PO DAILY 12/13/17 12/13/17 History Insulin LISPRO* [HumaLOG*] 0 units SUBCUT TID AC 12/13/17 12/13/17 History Metoprolol Succinate XL TAB* 25 mg PO BID 12/13/17 12/13/17 History [Toprol XL TAB*] Tiotropium CAP.INH* [Spiriva 1 cap.inh INH DAILY 12/13/17 12/13/17 History CAP.INH*] Torsemide TAB* [Demadex*] 20 mg PO DAILY 12/13/17 12/13/17 History predniSONE TAB* [Deltasone TAB*] 5 mg PO DAILY 12/13/17 12/13/17 History Allergies: Allergies Allergy/AdvReac Type Severity Reaction Status Date / Time wheat Allergy Palpitation Verified 11/10/17 14:20 s Objective - Vital Signs Vital Signs: Vital Signs 12/13/17 12/13/17 12/13/17 20:26 21:12 23:30 Temperature 97.1 F 97.8 F 97.5 F Pulse Rate 63 67 73 Respiratory 18 20 20 Rate Blood Pressure 130/52 133/49 135/41 (mmHg) O2 Sat by Pulse 100 98 97 Oximetry 12/14/17 12/14/17 03:50 07:25 Temperature 97.7 F 98.7 F Pulse Rate 61 66 Respiratory 28 20 Rate Blood Pressure 123/45 122/45 (mmHg) O2 Sat by Pulse 98 97 Oximetry - Intake and Output Intake and Output: Intake & Output 12/11/17 12/12/17 12/13/17 12/14/17 11:59 11:59 11:59 11:59 Intake Total 570 Output Total 300 Balance 270 Weight 149 lb 9.6 oz Intake: IV Fluids 570 ABX - AZITHROMYCIN 260 ABX - CEFEPIME 50 ABX - VANCOMYCIN 260 Oral 0 Output: Urine 300 Intake and Output Start: 12/13/17 20: 48 Freq: DAILY@0600,1400,2200 Status: Active Protocol: Document 12/14/17 05:52 [id number] (Rec: 12/14/17 05:54 [id number] [place] [id number]) - Physical Exam General Physical Exam Comment: He is weak, but alert and oriented. General: No Cyanosis, No Anemia, No Jaundice, No Clubbing Skin: Normal: Rash Lungs and Chest: Yes: Chest Expansion Full, Chest Expansion Symetrica, Percussion Note Resonant, Vessicular Breath Sounds, Crackles. No: Wheezes, Respiratory Distress, Use of Accessory Muscles Heart Rate and Rhythm: Regular Additional Cardiovascular: Yes: Normal Heart Sounds, Pedal Edema. No: Heart Murmur Abdominal Exam: Yes: Soft, Bowel Sounds Present. No: Distention, Abdominal Tenderness Results - Results Lab Results: Laboratory Results - last 24 hr 12/13/17 12/14/17 12/14/17 23:03 00:00 03:39 WBC RBC Hgb Hct MCV MCH MCHC RDW Plt Count MPV Neut % (Auto) Lymph % (Auto) Cannon % (Auto) Eos % (Auto) Baso % (Auto) Absolute Neuts (auto) Absolute Lymphs (auto) Absolute Monos (auto) Absolute Eos (auto) Absolute Basos (auto) Absolute Nucleated RBC Nucleated RBC % Sodium 132 L Potassium 4.8 Chloride 94 L Carbon Dioxide 31 Anion Gap 7 BUN 75 H Creatinine 1.65 H Est GFR ( Amer) 52.0 Est GFR (Non-Af Amer) 40.4 BUN/Creatinine Ratio 45.5 H Glucose 266 H POC Glucose (mg/dL) 273 H Calcium 8.2 L Magnesium 2.0 Troponin I 0.02 0.04 H* 12/14/17 12/14/17 03:39 07:34 WBC 11.7 H RBC 3.05 L Hgb 8.7 L Hct 26 L MCV 86 MCH 29 MCHC 33 RDW 17 H Plt Count 256 MPV 7 L Neut % (Auto) 89.1 H Lymph % (Auto) 4.8 L Cannon % (Auto) 5.0 Eos % (Auto) 0.5 Baso % (Auto) 0.6 Absolute Neuts (auto) 10.4 H Absolute Lymphs (auto) 0.6 L Absolute Monos (auto) 0.6 Absolute Eos (auto) 0.1 Absolute Basos (auto) 0.1 Absolute Nucleated RBC 0 Nucleated RBC % 0 Sodium Potassium Chloride Carbon Dioxide Anion Gap BUN Creatinine Est GFR ( Amer) Est GFR (Non-Af Amer) BUN/Creatinine Ratio Glucose POC Glucose (mg/dL) 89 Calcium Magnesium Troponin I Radiology Results: Patient Name: NEIL HANSON Medical Record#: [id number] Ordering Physician: Anastacio Alejandro MD Acct.#: [id number] : 1940 Age: 77 Sex: M Location: EMERGENCY DEPARTMENT Exam Date: 12/13/17 151 ADM Status: REG ER Order Information: CHEST PA & LAT 2 VWS Accession Number: [id number] CPT: 33610 Indication: Shortness of breath. 2 views of the chest are reviewed and compared to previous exam dated November 10, 2017. Right upper lobe infiltrate is present which is progressed since previous exam. There is right pleural effusion and right basilar infiltrate noted. Underlying interstitial edema with bilateral pleural effusions are likely present. IMPRESSION: There is suggestion of vascular congestion with persistent right upper lobe airspace disease. Bilateral pleural effusions are noted. <Electronically signed by Anna Avitia MD in OV> 12/13/17 1625 Dictated By: Anna Avitia MD Dictated Date/Time: 12/13/17 162 Transcribed Date/Time: 12/13/17 162 Copy to: CC:Yossi Vogel MD; Anastacio Alejandro MD Imaging - [facility] Imaging - [facility] Imaging - [facility] [address] [place] [id number] ph ([phone]) ph ([phone]) ph ([phone]) 1 of EKG Report: Sinus rhythm 69 SD 152 QTc 458 QRS axis 18 Poor R wave progression, T inversion lateral leads. 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 He has an increased WBC/%neutrophils. Since the infection was acquired in a SNF/hospital - he is receiving vancomycin. He has also been started on azithromycin. I will add ceftriaxone for greater coverage including some gram negatives. Acute diastolic CHF (congestive heart failure) (Acute) He has a high BNP - however his troponin Is so far are not significantly elevated. He is currently having a transthoracic echocardiogram. I will request a cardiology consultation Type 2 diabetes mellitus, uncontrolled (Acute) He is hyperglycemic. 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
--- NOTE | 2017-12-14 08:14 | ED ---
Rony Mckeon Angela, scribed for Anastacio Alejandro MD on 12/13/17 at 1526 . Shortness of Breath - HPI Summary HPI Summary: This pt is a 77 y/o male presenting to [facility] via EMS from [facility] for SOB. EMS reports the pt had recent CABG on November 2017 in [facility]. Per EMS pt has left arm swelling which has been there since his surgery according to the pt. EMS states the pt is suturing at 96% on 2L of O2 NC. Pt has a pacemaker in place. PMHx includes ME (11/10/17), CAD s/p CABG, HTN, COPD. - History of Current Complaint Hx Obtained From: Patient, EMS Onset/Duration: Still Present Timing: Constant Dyspnea At: Rest Aggrevating Factors: Nothing Alleviating Factors: Oxygen Associated Signs & Symptoms: Edema - in LUE - Allergy/Home Medications Allergies/Adverse Reactions: Allergies Allergy/AdvReac Type Severity Reaction Status Date / Time wheat Allergy Palpitation Verified 11/10/17 14:20 s Home Medications: Home Medications Amiodarone TAB* [Cordarone TAB*] 200 mg PO DAILY 12/13/17 [History Confirmed 04/25] Aspirin EC Low Dose* [Ecotrin EC Low Dose 81 MG*] 81 mg PO DAILY 12/13/17 [ History Confirmed 12/13/17] Atorvastatin* [Lipitor*] 20 mg PO DAILY 12/13/17 [History Confirmed 12/13/17] Clopidogrel TAB* [Plavix TAB*] 75 mg PO DAILY 12/13/17 [History Confirmed ] Insulin LISPRO* [HumaLOG*] 0 units SUBCUT TID AC 12/13/17 [History Confirmed 04/25] Metoprolol Succinate XL TAB* [Toprol XL TAB*] 25 mg PO BID 12/13/17 [History Confirmed 12/13/17] Tiotropium CAP.INH* [Spiriva CAP.INH*] 1 cap.inh INH DAILY 12/13/17 [History Confirmed 12/13/17] Torsemide TAB* [Demadex*] 20 mg PO DAILY 12/13/17 [History Confirmed 12/13/17] predniSONE TAB* [Deltasone TAB*] 5 mg PO DAILY 12/13/17 [History Confirmed 12/13] PMH/Surg Hx/FS Hx/Imm Hx Endocrine/Hematology History: Reports: Hx Diabetes Cardiovascular History: Reports: Hx Aneurysm, Hx Coronary Artery Disease - s/p CABG, Hx Hypercholesterolemia, Hx Hypertension, Hx Myocardial Infarction, Hx Pacemaker/ICD, Hx Rheumatic Fever, Other Cardiovascular Problems/Disorders Respiratory History: Reports: Hx Chronic Obstructive Pulmonary Disease (COPD), Other Respiratory Problems/Disorders - EMPHYSEMA History: Reports: Hx Benign Prostatic Hyperplasia, Other Problems/ Disorders - bph Musculoskeletal History: Reports: Hx Arthritis, Other Musculoskeletal History - arthritis-osteo Sensory History: Reports: Hx Contacts or Glasses - reading Denies: Hx Hearing Aid Opthamlomology History: Reports: Hx Contacts or Glasses - reading Neurological History: Reports: Hx Transient Ischemic Attacks (TIA), Other Neuro Impairments/Disorders - HX OF LANDRY ANEURYSM Psychiatric History: Denies: Hx Panic Disorder - Surgical History Surgery Procedure, Year, and Place: carotid endarterectomy right/right arm orif Hx Anesthesia Reactions: No Infectious Disease History: Denies: Traveled Outside the [place] in Last 30 Days - Family History Known Family History: Positive: Cardiac Disease - Father: fatal [place]. - Social History Alcohol Use: None Substance Use Type: Reports: None Hx Tobacco Use: Yes - QUIT APPROX 12YRS AGO Smoking Status (MU): Former Smoker Review of Systems Negative: Fever Positive: Shortness Of Breath Positive: Edema - on left hand All Other Systems Reviewed And Are Negative: Yes Physical Exam - Summary Physical Exam Summary: VITAL SIGNS: Reviewed. GENERAL: Patient is an elderly male who is lying comfortable in the stretcher. Patient is not in any significant acute respiratory distress. Pt is on 2L of oxygen via nasal cannula. HEAD AND FACE: No signs of trauma. No ecchymosis, hematomas or skull depressions. No sinus tenderness. EYES: PERRLA, EOMI x 2, No injected conjunctiva, no nystagmus. EARS: Hearing grossly intact. Ear canals and tympanic membranes are within normal limits. MOUTH: Oropharynx within normal limits. NECK: Supple, trachea is midline, no adenopathy, no JVD, no carotid bruit, no c- spine tenderness, neck with full ROM. CHEST: Symmetric, no tenderness at palpation LUNGS: Crackles in the lungs bilaterally. CVS: Regular rate and rhythm, S1 and S2 present, no murmurs or gallops appreciated. ABDOMEN: Soft, non-tender. No signs of distention. No rebound no guarding, and no masses palpated. Bowel sounds are normal. EXTREMITIES: FROM in all major joints, no cyanosis or clubbing. LUE: left hand swelling with ecchymosis since CABG in October 2017. There is no lower extremity edema. NEURO: Alert and oriented x 3. No acute neurological deficits. Speech is normal and follows commands. SKIN: Dry and warm Triage Information Reviewed: Yes Vital Signs Reviewed: Yes Diagnostics - Laboratory Result Diagrams: 12/13/17 15:25 12/13/17 15:25 Lab Statement: Any lab studies that have been ordered have been reviewed, and results considered in the medical decision making process. - Radiology Chest XR Xray Interpretation: Positive (See Comments) - IMPRESSION: There is suggestion of vascular congestion with persistent right upper lobe airspace disease. Bilateral pleural effusions are noted. Dr. Alejandro has reviewed this radiology report. Radiology Interpretation Completed By: Radiologist - EKG 15:41 Cardiac Rate: NL EKG Rhythm: Sinus Rhythm - at 69 bpm EKG Interpretation: No ST elevation. T wave inversion in leads II, V4-V6. EKG Comparison: No Significant Change - similar to prior EKG on 11/10/17. Course/Dx - Course Assessment/Plan: This pt is a 77 y/o male presenting to [facility] via EMS from [facility] for SOB. EMS reports the pt had recent CABG on November 2017 in [facility]. Per EMS pt has left arm swelling which has been there since his surgery according to the pt. EMS states the pt is suturing at 96 % on 2L of O2 NC. Pt has a pacemaker in place. PMHx includes ME (11/10/17), CAD s/p CABG, HTN, COPD. Test results show WBC of 14.2, slight anemia, acute on chronic renal failure, slight hyperkalemia, BNP of 732. Influenza A and B is negative. Chest XR: There is suggestion of vascular congestion with persistent right upper lobe airspace disease. Bilateral pleural effusions are noted. EKG shows no ST elevation. In the ED course the pt was given Levaquin for the pneumonia, and Lasix for CHF exacerbation. In the ED course the pt is stable. I discussed the case with Dr. Laughlin, hospitalist, who accepted the pt for admission. Pt is hemodynamically stable, alert and oriented x3. - Diagnoses Provider Diagnoses: Pneumonia, Congestive heart failure - Physician Notifications Discussed Care of Patient With: Mariella Laughlin Time Discussed With Above Provider: 17:23 Instructed by Provider To: Other - I discussed pt care with Dr. Laughlin, hospitalist, who has agreed to admit the pt. Discharge - Discharge Plan Condition: Stable Disposition: ADMITTED TO [facility] Referrals: Yossi Vogel MD [Primary Care Provider] - The documentation as recorded by the Rony montano Angela accurately reflects the service I personally performed and the decisions made by , Anastacio Alejandro MD.
[2017-12-14] MEDS ORDERED: Dextrose 50% Syringe 50 ML* 25 GM/50 ML SYRINGE IV PUSH PRN (08:24)
[2017-12-14] MEDS: Insulin LISPRO* 1 UNITS UNIT SUBCUT SCH ×6 (08:26→22:03)
[2017-12-14] MEDS: Tiotropium CAP.INH* CAP.INH/18 MCG (USE ORDER SET !) INH SCH (08:32)
[2017-12-14] MEDS: Amiodarone TAB* 200 MG PO SCH (08:57)
[2017-12-14] MEDS: predniSONE TAB* 5 MG PO SCH (08:57)
[2017-12-14] MEDS: Atorvastatin* 20 MG TAB PO SCH (08:57)
[2017-12-14] MEDS: Metoprolol Succinate XL TAB* 25 MG PO SCH ×2 (08:57→21:51)
[2017-12-14] MEDS: Aspirin EC Low Dose* 81 MG TAB.EC PO SCH (08:57)
[2017-12-14] MEDS: Clopidogrel TAB* 75 MG PO SCH (08:57)
[2017-12-14] MEDS ORDERED: Torsemide TAB* 20 MG PO SCH (09:00)
[2017-12-14] MEDS ORDERED: Spiriva Inhaler DEVICE* 1 EACH DEVICE INH ONE (09:00)
[2017-12-14] MEDS ORDERED: cefTRIAXone(*) 1 GM in NS 0.9% 50 ML* 50 ML IVPB SCH (09:00)
--- NOTE | 2017-12-14 12:51 | ECHO ---
Patient: NEIL PAULA [facility] Rec#: [id number] : 1940 Date: 12/14/2017 Age: 77y Height: 175 cm / 68.9 in Weight: 69 kg / 152.1 lbs Sex: M BSA: 1.84 Room#: [facility] Admit Date#: 12/13/2017 Type: Inpatient Referring: Mesha Sanchez Reading: Micky Light MD Paper Folder: Riri Ray CORI CC: Antonio Flores MD Transthoracic Echocardiogram Indication: CAD/ SOB BP: 135/41 HR: 67 Rhythm: NSR Findings History: HTN,DM,PVD,carotidenderarterectomy,former smoker,HLD,SSS S/P pacer insert,rheumatic fever,chronic systolic CHF,PAF,S/P CABG 11/15/2017. Left Ventricle: The left ventricular chamber size is normal. Mild concentric left ventricular hypertrophy is observed. The estimated ejection fraction is 45-50%. Post surgical hypokinesis of the interventricular septum is observed consistent with coronary artery bypass. There is abnormal ventricular septal wall motion consistent with right ventricular pacemaker. The patient was unable to perform a Valsalva maneuver. Left Atrium: The left atrial chamber size is normal. Right Ventricle: The right ventricular cavity size is normal. The right ventricular global systolic function is normal. The septum has abnormal paradoxical motion consistent with RV pacemaker. A pacemaker wire is visualized in the right ventricle. Right Atrium: The right atrial cavity size is normal. A pacemaker wire is visualized in the right atrium. Aortic Valve: The aortic valve is trileaflet. There is no evidence of aortic valve thickening. There is no evidence of aortic regurgitation. There is no evidence of aortic stenosis. Mitral Valve: The mitral valve leaflets are mildly thickened. There is a trace of mitral regurgitation. There is no evidence of mitral stenosis. Tricuspid Valve: The tricuspid valve leaflets are normal. There is trace to mild tricuspid regurgitation. There is evidence that pulmonary hypertension may be underestimated. There is no tricuspid stenosis. Pulmonic Valve: The pulmonic valve appears normal. There is mild pulmonic regurgitation. There is no pulmonic stenosis. Pericardium: The pericardium appears normal. A left pleural effusion is present. There is a large pleural effusion. Aorta: There is no dilatation of the ascending aorta. The aortic arch is not well visualized. There is no dilation of the aortic root. Pulmonary Artery: The main pulmonary artery is not well visualized. Venous: The venous system is not well visualized. Contrast: Definity was used to optimize study. A total of 4 ml used. Intravenous contrast was used to enhance endocardial border definition. Summary: There are changes noted when compared to the previous study done on 02/04/2014, LV EF is now mildly reduced instead of 55-60% then. Conclusions Mild concentric left ventricular hypertrophy is observed. The estimated ejection fraction is 45-50%. Post surgical hypokinesis of the interventricular septum is observed consistent with coronary artery bypass. A pacemaker wire is visualized in the right ventricle. There is a trace of mitral regurgitation. There is trace to mild tricuspid regurgitation. There is evidence that pulmonary hypertension may be underestimated. There is mild pulmonic regurgitation. Measurements Name Value Normal Range RVIDd (AP) 2D 2.5 cm (0.9 - 2.6) RVDdMajor (2D) 3.5 cm (2.2 - 4.4) RAd ISD 4CH 4.9 cm (3.4 - 4.9) RA (A4C)W 4.3 cm (2.9 - 4.6) IVSd (2D) 1.2 cm (0.6 - 1) LVPWd (2D) 1.4 cm (0.6 - 1) LVIDd (2D) 4.4 cm (3.6 - 5.4) LVIDs (2D) 3.1 cm - LV FS (2D) 30 % (25 - 45) Aortic Annulus 2.2 cm (1.4 - 2.6) Ao root diameter (2D) 3.5 cm (2.1 - 3.5) Ascending Ao 3.2 cm (2.1 - 3.4) LA dimension (AP) 2D 3.3 cm (2.3 - 3.8) LAd ISD 4CH 4.4 cm (2.9 - 5.3) LA ISD 4CH W 3.7 cm (2.5 - 4.5) Name Value Normal Range LA ESV SP 4CH (A/L) 42 ml - LA ESV SP 2CH (A/L) 45 ml - LA ESV BP (A/L) 46 ml - LA ESV BP (A/L) index 24.86 ml/m2 - LA ESV SP 4CH (MOD) 39 ml - LA ESV SP 2CH (MOD) 42 ml - Name Value Normal Range MV E-wave Vmax 0.9 m/sec - MV deceleration time 235 msec - MV A-wave Vmax 0.7 m/sec - MV E:A ratio 1.28 ratio - LV septal e' Vmax 0.07 m/sec - LV lateral e' Vmax 0.06 m/sec - LV E:e' septal ratio 12.85 ratio - LV E:e' lateral ratio 15 ratio - Name Value Normal Range AV Vmax 1.3 m/sec - AV VTI 32.9 cm - AV peak gradient 6.28 mmHg - AV mean gradient 3.4 mmHg - LVOT Vmax 0.8 m/sec - LVOT VTI 21 cm - LVOT peak gradient 2.7 mmHg - LVOT mean gradient 1.2 mmHg - Name Value Normal Range TR Vmax 2.2 m/sec - TR peak gradient 19 mmHg - RAP 8 mmHg - RVSP 27 mmHg - Name Value Normal Range PV Vmax 0.5 m/sec - PV peak gradient 0.88 mmHg -
--- NOTE | 2017-12-14 20:19 | CONS ---
CC: Dr. Trenton Muniz; Hospitalist Service * CARDIOLOGY CONSULT: DATE OF CONSULT: 12/14/17 HISTORY OF PRESENT ILLNESS: I was asked by Dr. Muniz to see this 77-year-old male patient, who does have extensive cardiac history and admitted yesterday from [facility] with progressive shortness of breath. He was diagnosed with pneumonia of the right side and also congestive heart failure. The patient does have history of coronary artery disease, recent coronary artery bypass grafting at [facility], and history of sick sinus syndrome, status post permanent pacemaker implantation. His left ventricular systolic function by an echo done in 2013 was 55% to 60%. An echo done today, his EF is about 45% to 50%. There is no significant valvular disease, no significant pericardial effusion. There is pleural effusion, however. He does have extensive comorbidities including systemic arterial hypertension; hyperlipidemia ; diabetes mellitus; history of thrombocytosis; rheumatic fever; history of systolic congestive heart failure; history of paroxysmal atrial fibrillation, he is on amiodarone; history of carotid endarterectomy; pacemaker implantation in November 2017; ORIF of the left arm. The patient gives no fever, no chills, no nausea, no vomiting, no hematochezia, no skin rash, no abdominal pain, no syncope. There is swelling in the lower extremities. There is ecchymosis of the extremities, upper and lower. Since been in the hospital yesterday, he feels much better. He was found to have initially abnormal labs with a troponin at 0.04 peak, but he had no symptoms of chest pain. His BNP was elevated at 732. He does have significantly elevated BUN at 75, at one point his BUN was 93, creatinine 1.65. He gives no palpitations. No syncope no orthopnea. His major concern is shortness of breath and in speaking to him, he said he even had shortness of breath since he had coronary artery bypass grafting. PAST MEDICAL AND SURGICAL HISTORY: His past medical history is extensive and it is as outlined above and past surgical history as well. CURRENT MEDICATIONS: As an inpatient include: 1. Atenolol 25 mg b.i.d. 2. Vancomycin. 3. Prednisone 5 mg daily. 4. He is on torsemide 40 mg daily. 5. He is also on Lantus. 6. He is on Humalog. 7. He is on Toprol 25 mg twice a day. 8. Spiriva inhaler. 9. He is on amiodarone 200 mg daily. 10. Aspirin 81 mg daily. 11. Lipitor 20 mg daily. 12. Azithromycin 500 mg daily. 13. Cefepime 1 g q.12 hours. ALLERGIES: He has no medications that he is allergic to. FAMILY HISTORY: Family history of [place] in his parents, but no premature disease. SOCIAL HISTORY: He used to smoke, he quit in 2004. No significant history of drug abuse or alcoholism. PHYSICAL EXAM: He is frail, elderly, but he is awake, alert, and oriented. He had no symptoms of chest pain. His breathing, he believes, is much better. Vitals: His blood pressure 117/40; temperature 97.3; heart rate 63, is in sinus rhythm; sats 98% on 4 L; respiratory rate 20. Head and Neck Exam: Normocephalic, atraumatic head. Ears, Nose, and Throat: Essentially benign. Neck: Supple. JVP is not elevated. No carotid bruits. No masses in the neck are appreciated. Chest: Diminished air entry bilaterally and there is basal rhonchi. Heart: Normal S1, S2. Status post sternotomy. Sternotomy scar appears to be healing well. No signs of infection. Abdomen: Benign, soft. Positive bowel sounds. Extremities: +2 edema. PHOTO ENGRAVER: No focal deficits. Skin Exam: Diffuse ecchymosis. Psych: Normal affect and mood. DIAGNOSTIC STUDIES/LAB DATA: Labs showed sodium 132, chloride 94, his BUN 75, creatinine 1.65, glucose 266, calcium 8.2. His BNP is 732. Troponin peak at 0.04. His chest x-ray was reported to have pneumonia of the right upper lobe, bilateral pleural effusions, and also suggestion for vascular congestion. His EKG done, 12/13/17, yesterday showed him to be in sinus rhythm. There is poor R-wave progression. There is diffuse T-wave inversions in V4, V5, V6, and V3 appreciated. Left atrial abnormality. IMPRESSION: The patient is a 77-year-old male patient with: 1. The presentation with progressive symptoms of shortness of breath after a recent coronary artery bypass grafting, could be multifactorial in nature including mild reduced left ventricular systolic function with congestive heart failure, complicated by recent right-sided pneumonia as well as bilateral pleural effusions. 2. Atrial fibrillation, but he is in sinus rhythm on amiodarone treatment. 3. Status post permanent pacemaker implantation secondary to sick sinus syndrome. 4. Anemia. 5. Renal insufficiency with significantly elevated BUN and mildly elevated creatinine. 6. No significant valvular disease by his recent echo. 7. Abnormal EKG as described. 8. Diabetes mellitus. 9. Systemic arterial hypertension. 10. Hyperlipidemia. 11. Status post permanent pacemaker implantation. PLAN: The patient is currently monitored. He is on his cardiac medications as outlined above which I agree, daily weights, I's and O's which I agree. Aggressive treatment for his pneumonia as you are already doing. Cardiac arndt, I increased his Demadex to 40 mg twice a day, and we need to keep a very close eye on his renal function and also his output. He does have mildly reduced left ventricular systolic function from the echo from today. Low salt, to restrict salt less than 2 g per day and fluids less than 2 L per day. I discussed this plan with the patient himself, keep a very close eye on electrolytes, especially potassium and magnesium. We will follow him very closely with you. I answered all of his concerns and questions up to his satisfaction. TIME SPENT: More than half of at least 60 to 65 plus minutes was on the education and counseling discussing all of the above [id number] and making further management plan. [id number]/[facility] #: [id number] SERGIO
[2017-12-14] MEDS: Torsemide TAB* 20 MG PO SCH (21:52)
[2017-12-14] MEDS: Insulin GLARGINE(*) 1 UNITS UNIT SUBCUT SCH (21:54)
[2017-12-14] MEDS ORDERED: Insulin LISPRO* 1 UNITS UNIT SUBCUT ONE (22:00)
[2017-12-14] MEDS: Vancomycin(*) 1,000 MG in NS 0.9% 250 ML* 250 ML IVPB SCH (22:51)
[2017-12-15] MEDS: Azithromycin IV(*) 500 MG in NS 0.9% 250 ML* 250 ML IVPB SCH (01:56)
[2017-12-15] MEDS: Heparin VIAL(*) 5000 UNITS/ML VIAL (FIVE THOUSAND) SUBCUT SCH ×4 (06:23→23:25)
[2017-12-15 06:32] LABS: EGFR Non-African American 40.7 (>60)
[2017-12-15] MEDS: Dextrose 50% Syringe 50 ML* 25 GM/50 ML SYRINGE IV PUSH PRN (07:02)
[2017-12-15 07:21] LABS: ABS Basophils 0 10^3/ul (0-0.2); ABS Eosinophils 0.1 10^3/ul (0-0.6); ABS Lymphocytes 0.5 10^3/ul (1.0-4.8); ABS Monocytes 0.6 10^3/ul (0-0.8); ABS Neutrophils 10.7 10^3/ul (1.5-7.7); ABS Nucleated RBC 0 10^3/ul; Eosinophil % 1.2 % (0-6); Hematocrit 26 % (42-52); Hemoglobin 8.5 g/dl (14.0-18.0); Lymphocyte % 4.4 % (25-47); Mean Corpuscular HGB Conc 33 g/dl (31-36); Mean Corpuscular Hemoglobin 29 pg (27-31); Mean Corpuscular Volume 88 fL (80-94); Mean Platelet Volume 7 um3 (7.4-10.4); Nucleated Red Blood Cells % 0; Platelet Count 256 10^3/ul (150-450); Red Blood Count 2.96 10^6/ul (4.0-5.4); Red Cell Distribution Width 17 % (10.5-15)
[2017-12-15] MEDS: Tiotropium CAP.INH* CAP.INH/18 MCG (USE ORDER SET !) INH SCH (07:52)
--- NOTE | 2017-12-15 08:18 | PN ---
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 He states that there is now a systolic component to the CHF. He remains weak. He has had no chest pain. His cough, he thinks, is a little better. He has multiple echymoses he thinks from warfarin. He had a hypoglycemic episode 35 mg/dl. According to the RN he has worsening skin breakdown on his sacral area - stage 2 ulcers. Positioning is difficult as he complains of dyspnea when on his side Active Problems: Active Problems Acute combined systolic and diastolic congestive heart failure (Acute) I50.41 Pleural effusion, bilateral (Acute) J90 Pneumonia involving right lung (Acute) J18.9 Sacral decubitus ulcer, stage II (Acute) L89.152 Stage 3 chronic kidney disease (Acute) N18.3 Type 2 diabetes mellitus, uncontrolled (Acute) E11.65 Cardiac pacemaker (Chronic) Z95.0 Carotid stenosis (Chronic) I65.29 Ecchymoses, spontaneous (Chronic) R23.3 Essential hypertension (Chronic) I10 History of cardiac arrest (Chronic) Z86.74 Hx of CABG (Chronic) Hyperlipidemia (Chronic) E78.5 Peripheral vascular disease (Chronic) I73.9 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.3599 Current Medications: Current Medications Acetaminophen (Tylenol Tab*) 650 mg PO Q4H PRN PRN Reason: FEVER/PAIN Al Hydrox/Mg Hydrox/Simethicone (Maalox Plus*) 30 ml PO Q6H PRN PRN Reason: INDIGESTION Amiodarone HCl (Cordarone Tab*) 200 mg PO DAILY [facility] Last Admin: 12/14/17 08:57 Dose: 200 mg Aspirin (Aspirin Ec Low Dose*) 81 mg PO DAILY [facility] Last Admin: 12/14/17 08:57 Dose: 81 mg Atorvastatin Calcium (Lipitor*) 20 mg PO DAILY [facility] Last Admin: 12/14/17 08:57 Dose: 20 mg Clopidogrel Bisulfate (Plavix Tab*) 75 mg PO DAILY [facility] Last Admin: 12/14/17 08:57 Dose: 75 mg Dextrose (D50w Syringe 50 Ml*) 12.5 gm IV PUSH .FOR FS < 60 - SS PRN PRN Reason: FS < 60 Last Admin: 12/15/17 07:02 Dose: 12.5 gm Heparin Sodium (Porcine) (Heparin Vial(*)) 5,000 units SUBCUT Q8HR [facility] Last Admin: 12/15/17 06:23 Dose: 5,000 units Cefepime HCl (Maxipime 1 Gm In Dextrose Duplex (*)) 1 gm in 50 mls @ 100 mls/ hr IV Q12H [facility] Last Admin: 12/14/17 21:57 Dose: 100 mls/hr Azithromycin 500 mg/ Sodium (Chloride) 250 mls @ 250 mls/hr IVPB Q24H [facility] Last Admin: 12/15/17 01:56 Dose: 250 mls/hr Vancomycin HCl 1,000 mg/ (Sodium Chloride) 250 mls @ 166.667 mls/hr IVPB Q24H [facility] Last Admin: 12/14/17 22:51 Dose: 166.667 mls/hr Insulin Glargine (Lantus(*)) 20 units SUBCUT BEDTIME [facility] Last Admin: 12/14/17 21:54 Dose: 20 units Insulin Human Lispro (Humalog*) 0 units SUBCUT AC [facility] PRN Reason: Protocol Last Admin: 12/14/17 17:49 Dose: 3 unit Insulin Human Lispro (Humalog*) 0 units SUBCUT ACHS [facility] PRN Reason: Protocol Last Admin: 12/14/17 22:03 Dose: Not Given Metoprolol Succinate (Toprol Xl Tab*) 25 mg PO BID [facility] Last Admin: 12/14/17 21:51 Dose: Not Given Pharmacy Consult (Vancomycin Per Pharmacy*) 1 note FOLLOW UP . PRN PRN Reason: PER PROTOCOL Pharmacy Profile Note (Vancomycin Trough Check) 1 note FOLLOW UP 2030 ONE Stop: 12/16/17 20:31 Prednisone (Deltasone Tab*) 5 mg PO DAILY [facility] Last Admin: 12/14/17 08:57 Dose: 5 mg Tiotropium Gordon (Spiriva Cap.Inh*) 1 cap INH DAILY [facility] Last Admin: 12/15/17 07:52 Dose: 1 cap Torsemide (Demadex*) 40 mg PO BID [facility] Last Admin: 12/14/17 21:52 Dose: 40 mg Home Medications: Home Medications Medication Instructions Recorded Confirmed Type glipiZIDE TAB* [Glucotrol TAB*] 5 mg PO DAILY 02/03/14 12/13/17 History Insulin GLARGINE(*) [Lantus(*)] 10 units SUBCUT BEDTIME 11/10/17 12/13/17 History Amiodarone TAB* [Cordarone TAB*] 200 mg PO DAILY 12/13/17 12/13/17 History Aspirin EC Low Dose* [Ecotrin EC 81 mg PO DAILY 12/13/17 12/13/17 History Low Dose 81 MG*] Atorvastatin* [Lipitor*] 20 mg PO DAILY 12/13/17 12/13/17 History Clopidogrel TAB* [Plavix TAB*] 75 mg PO DAILY 12/13/17 12/13/17 History Insulin LISPRO* [HumaLOG*] 0 units SUBCUT TID AC 12/13/17 12/13/17 History Metoprolol Succinate XL TAB* 25 mg PO BID 12/13/17 12/13/17 History [Toprol XL TAB*] Tiotropium CAP.INH* [Spiriva 1 cap.inh INH DAILY 12/13/17 12/13/17 History CAP.INH*] Torsemide TAB* [Demadex*] 20 mg PO DAILY 12/13/17 12/13/17 History predniSONE TAB* [Deltasone TAB*] 5 mg PO DAILY 12/13/17 12/13/17 History Allergies: Allergies Allergy/AdvReac Type Severity Reaction Status Date / Time wheat Allergy Palpitation Verified 11/10/17 14:20 s Objective - Vital Signs Vital Signs: Vital Signs 12/14/17 12/14/17 12/14/17 11:43 14:05 14:21 Temperature 97.3 F 97.6 F 97.6 F Pulse Rate 63 76 72 Respiratory 20 20 Rate Blood Pressure 117/40 94/33 94/33 (mmHg) O2 Sat by Pulse 98 97 96 Oximetry 12/14/17 12/14/17 12/14/17 15:19 19:29 20:00 Temperature 97.3 F 97.4 F Pulse Rate 79 72 Respiratory 16 20 20 Rate Blood Pressure 128/69 124/41 (mmHg) O2 Sat by Pulse 95 98 Oximetry 12/14/17 12/15/17 12/15/17 21:47 00:07 03:58 Temperature 97.5 F 97.3 F Pulse Rate 66 66 61 Respiratory 16 16 Rate Blood Pressure 105/34 141/43 100/41 (mmHg) O2 Sat by Pulse 97 93 98 Oximetry - Intake and Output Intake and Output: Intake & Output 12/12/17 12/13/17 12/14/17 12/15/17 11:59 11:59 11:59 11:59 Intake Total 690 1401 Output Total 300 800 Balance 390 601 Weight 149 lb 9.6 oz Intake: IV Fluids 570 36 ABX - AZITHROMYCIN 260 ABX - CEFEPIME 50 16 ABX - VANCOMYCIN 260 20 IVPB 320 ABX - CEFEPIME 60 ABX - VANCOMYCIN 260 Oral 120 1045 Output: Urine 300 800 Other: Estimated Void Medium # Bowel Movements 1 Estimated Stool Amount Small # Voids 1 ADLs: Meal Record Start: 12/13/17 20: 48 Freq: DAILY@0900,1400,1800 Status: Active Protocol: Document 12/14/17 09:00 [id number] (Rec: 12/14/17 14:25 [id number]) Document 12/14/17 14:00 [id number] (Rec: 12/14/17 14:26 [id number]) Document 12/14/17 17:34 [id number] (Rec: 12/14/17 17:34 [id number] [id number]) Intake and Output Start: 12/13/17 20: 48 Freq: DAILY@0600,1400,2200 Status: Active Protocol: Document 12/14/17 05:52 [id number] (Rec: 12/14/17 05:54 [id number]) Document 12/14/17 14:00 [id number] (Rec: 12/14/17 14:26 [id number] [id number]) Document 12/14/17 22:00 [id number] (Rec: 12/14/17 22:20 [id number] [id number]) Document 12/15/17 05:15 [id number] (Rec: 12/15/17 05:16 [id number]) - Physical Exam General Physical Exam Comment: He is weak and unable to move himself in the bed , 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 He has multiple black echymoses on his feet and also his elbows. He has swelling of his left arm. General: No Cyanosis, Yes Anemia, No Jaundice, No Clubbing Skin: Abnormal: Lesions - echymoses. Lungs and Chest: Yes: Chest Expansion Symetrica. No: Chest Expansion Full, Vessicular Breath Sounds - emphysematous, Crackles, Wheezes, Respiratory Distress, Use of Accessory Muscles Heart Rate and Rhythm: Regular Additional Cardiovascular: Yes: Normal Heart Sounds, Pedal Edema. No: Heart Murmur Abdominal Exam: Yes: Soft, Bowel Sounds Present. No: Distention, Abdominal Mass , Abdominal Tenderness - Neuro Orientation: A/O x3 Speech: Normal Results - Results Lab Results: Laboratory Results - last 24 hr 12/14/17 12/14/17 12/14/17 09:32 11:21 16:11 WBC RBC Hgb Hct MCV MCH MCHC RDW Plt Count MPV Neut % (Auto) Lymph % (Auto) Cook % (Auto) Eos % (Auto) Baso % (Auto) Absolute Neuts (auto) Absolute Lymphs (auto) Absolute Monos (auto) Absolute Eos (auto) Absolute Basos (auto) Absolute Nucleated RBC Nucleated RBC % Sodium Potassium Chloride Carbon Dioxide Anion Gap BUN Creatinine Est GFR ( Amer) Est GFR (Non-Af Amer) BUN/Creatinine Ratio Glucose POC Glucose (mg/dL) 149 H 296 H Calcium Troponin I 0.03 C-Reactive Protein 12/14/17 12/15/17 12/15/17 20:58 05:18 05:18 WBC 12.0 H RBC 2.96 L Hgb 8.5 L Hct 26 L MCV 88 MCH 29 MCHC 33 RDW 17 H Plt Count 256 MPV 7 L Neut % (Auto) 89.3 H Lymph % (Auto) 4.4 L Cook % (Auto) 4.9 Eos % (Auto) 1.2 Baso % (Auto) 0.2 Absolute Neuts (auto) 10.7 H Absolute Lymphs (auto) 0.5 L Absolute Monos (auto) 0.6 Absolute Eos (auto) 0.1 Absolute Basos (auto) 0 Absolute Nucleated RBC 0 Nucleated RBC % 0 Sodium 135 Potassium 3.6 Chloride 99 L Carbon Dioxide 32 Anion Gap 4 BUN 72 H Creatinine 1.64 H Est GFR ( Amer) 52.4 Est GFR (Non-Af Amer) 40.7 BUN/Creatinine Ratio 43.9 H Glucose 35 L* POC Glucose (mg/dL) 244 H Calcium 7.8 L Troponin I C-Reactive Protein 46.97 H 12/15/17 07:20 WBC RBC Hgb Hct MCV MCH MCHC RDW Plt Count MPV Neut % (Auto) Lymph % (Auto) Cook % (Auto) Eos % (Auto) Baso % (Auto) Absolute Neuts (auto) Absolute Lymphs (auto) Absolute Monos (auto) Absolute Eos (auto) Absolute Basos (auto) Absolute Nucleated RBC Nucleated RBC % Sodium Potassium Chloride Carbon Dioxide Anion Gap BUN Creatinine Est GFR ( Amer) Est GFR (Non-Af Amer) BUN/Creatinine Ratio Glucose POC Glucose (mg/dL) 138 H Calcium Troponin I C-Reactive Protein Other Results/Reports: 12/14/2017 transthoracic echocardiogram Conclusions Mild concentric left ventricular hypertrophy is observed. The estimated ejection fraction is 45-50%. Post surgical hypokinesis of the interventricular septum is observed consistent with coronary artery bypass. A pacemaker wire is visualized in the right ventricle. There is a trace of mitral regurgitation. There is trace to mild tricuspid regurgitation. There is evidence that pulmonary hypertension may be underestimated. There is mild pulmonic regurgitation. 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 I will maintain his antibacterial coverage. Acute combined systolic and diastolic congestive heart failure (Acute) Bilateral pleural effusions: I reviewed Dr. Light's plan and endorse following his recommendations. Sacral decubitus ulcer, stage II (Acute) This is worrying and likely reflects his truncal weakness, debility, poor nutrition Stage 3 chronic kidney disease (Acute) I will check a urine fractional sodium excretion. 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 His platelet count is normal and he is no longer on anticoagulant. His INR is normal Essential hypertension (Chronic) He has a low BP - poor cardiac output vs negative inotropes History of cardiac arrest (Chronic)Hx of CABG (Chronic) The cause of his loss of LV function Hyperlipidemia (Chronic) continue current Rx Peripheral vascular disease (Chronic) I am worried about him having a high risk of skin breakdown I discussed the above with Hugo Hanson - he asked me to call Radha Palmer. I told her that he is not thriving - we are doing what we can to support him. She understands he lacks resilience.
[2017-12-15] MEDS: Clopidogrel TAB* 75 MG PO SCH (09:13)
[2017-12-15] MEDS: Torsemide TAB* 20 MG PO SCH ×2 (09:14→21:21)
[2017-12-15] MEDS: predniSONE TAB* 5 MG PO SCH (09:14)
[2017-12-15] MEDS: Aspirin EC Low Dose* 81 MG TAB.EC PO SCH (09:14)
[2017-12-15] MEDS: Metoprolol Succinate XL TAB* 25 MG PO SCH ×2 (09:14→21:21)
[2017-12-15] MEDS: Amiodarone TAB* 200 MG PO SCH (09:14)
[2017-12-15] MEDS: Atorvastatin* 20 MG TAB PO SCH (09:14)
[2017-12-15] MEDS: Cefepime 1 GM in Dextrose(*) 1 GM/50 ML BAG IV SCH ×2 (10:22→23:20)
[2017-12-15] MEDS: Insulin LISPRO* 1 UNITS UNIT SUBCUT SCH ×7 (10:30→21:22)
--- NOTE | 2017-12-15 11:10 | RAD ---
HISTORY: Pneumonia versus edema COMPARISONS: Chest x-ray dated December 13, 2017 TECHNIQUE: Multiple contiguous axial CT scans of the chest were obtained without intravenous contrast. Coronal and sagittal multiplanar reformations are also submitted for review. FINDINGS: The study is limited by the lack of intravenous contrast. This limits evaluation of the solid organs and vasculature. NECK AND THYROID: The lower neck and thyroid are unremarkable. A left-sided pacemaker is noted. CHEST WALL: There is no lower cervical, axillary, or supraclavicular lymphadenopathy by size criteria. HEART AND PERICARDIUM: There is a moderate pericardial effusion. There are coronary and valvular cardiac calcifications. AORTA AND PULMONARY VASCULATURE: The aorta and pulmonary vasculature are normal. MEDIASTINUM: There is no mediastinal lymphadenopathy by size criteria. JYOTI: There is no hilar lymphadenopathy by size criteria. AIRWAY AND ESOPHAGUS: The airway is unremarkable, without endobronchial filling defect. The esophagus is grossly normal. LUNG PARENCHYMA: There is extensive centrilobular and panacinar emphysematous change. There is compressive atelectasis of the lung bases bilaterally with consolidative changes of the right lower lobe. PLEURA: There are moderate to large bilateral pleural effusions. UPPER ABDOMEN: The upper abdomen is unremarkable. BONES AND SOFT TISSUES: The patient is status post median sternotomy. OTHER: None. IMPRESSION: 1. MODERATE SIZED PERICARDIAL EFFUSION. 2. BILATERAL PLEURAL EFFUSIONS. 3. THERE IS COMPRESSIVE ATELECTASIS OF THE LUNG BASES BILATERALLY WITH CONSOLIDATION OF THE RIGHT LOWER LOBE. 4. ADVANCED EMPHYSEMA. 5. ATHEROSCLEROSIS.
[2017-12-15] MEDS: Collagenase 250 MG/GM OINT* 30 GM TOPICAL SCH (21:20)
[2017-12-15] MEDS: Insulin GLARGINE(*) 1 UNITS UNIT SUBCUT SCH (21:21)
[2017-12-15] MEDS: Vancomycin(*) 1,000 MG in NS 0.9% 250 ML* 250 ML IVPB SCH (21:22)
[2017-12-16] MEDS: Azithromycin IV(*) 500 MG in NS 0.9% 250 ML* 250 ML IVPB SCH (03:10)
[2017-12-16] MEDS: Heparin VIAL(*) 5000 UNITS/ML VIAL (FIVE THOUSAND) SUBCUT SCH ×3 (05:29→21:13)
[2017-12-16] MEDS: Dextrose 50% Syringe 50 ML* 25 GM/50 ML SYRINGE IV PUSH PRN (06:19)
[2017-12-16] MEDS: Insulin LISPRO* 1 UNITS UNIT SUBCUT SCH ×7 (06:48→21:15)
[2017-12-16 07:25] LABS: EGFR Non-African American 37.1 (>60)
[2017-12-16 07:42] LABS: ABS Basophils 0 10^3/ul (0-0.2); ABS Eosinophils 0.1 10^3/ul (0-0.6); ABS Lymphocytes 0.5 10^3/ul (1.0-4.8); ABS Monocytes 0.6 10^3/ul (0-0.8); ABS Neutrophils 11.9 10^3/ul (1.5-7.7); ABS Nucleated RBC 0 10^3/ul; Eosinophil % 0.9 % (0-6); Hematocrit 25 % (42-52); Hemoglobin 8.7 g/dl (14.0-18.0); Mean Corpuscular HGB Conc 34 g/dl (31-36); Mean Corpuscular Hemoglobin 29 pg (27-31); Mean Corpuscular Volume 86 fL (80-94); Mean Platelet Volume 7 um3 (7.4-10.4); Nucleated Red Blood Cells % 0; Platelet Count 230 10^3/ul (150-450); Red Blood Count 2.96 10^6/ul (4.0-5.4); Red Cell Distribution Width 18 % (10.5-15); White Blood Count 13.1 10^3/ul (3.5-10.8)
[2017-12-16] MEDS: Collagenase 250 MG/GM OINT* 30 GM TOPICAL SCH (07:49)
[2017-12-16] MEDS: Tiotropium CAP.INH* CAP.INH/18 MCG (USE ORDER SET !) INH SCH (09:12)
--- NOTE | 2017-12-16 09:53 | PN ---
Subjective - Subjective Reason for Note: Progress Note History: He continues to complain of dyspnea. He is in no pain - in particular, no chest pain. He is not coughing. He has had no fevers or sweats. He had a hypoglycemic episode again this morning. I note he is taking prednisone 5 mg qdaily - I don't know when this was introduced - he wasn't on this as an outpatient. I = 1681 O = 1350 - he is not having a diuresis. Active Problems: Active Problems Acute combined systolic and diastolic congestive heart failure (Acute) I50.41 Pleural effusion, bilateral (Acute) J90 Pneumonia involving right lung (Acute) J18.9 Sacral decubitus ulcer, stage II (Acute) L89.152 Stage 3 chronic kidney disease (Acute) N18.3 Type 2 diabetes mellitus, uncontrolled (Acute) E11.65 Cardiac pacemaker (Chronic) Z95.0 Carotid stenosis (Chronic) I65.29 Ecchymoses, spontaneous (Chronic) R23.3 Essential hypertension (Chronic) I10 History of cardiac arrest (Chronic) Z86.74 Hx of CABG (Chronic) Hyperlipidemia (Chronic) E78.5 Peripheral vascular disease (Chronic) I73.9 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.3599 Current Medications: Current Medications Acetaminophen (Tylenol Tab*) 650 mg PO Q4H PRN PRN Reason: FEVER/PAIN Al Hydrox/Mg Hydrox/Simethicone (Maalox Plus*) 30 ml PO Q6H PRN PRN Reason: INDIGESTION Amiodarone HCl (Cordarone Tab*) 200 mg PO DAILY [facility] Last Admin: 12/15/17 09:14 Dose: 200 mg Aspirin (Aspirin Ec Low Dose*) 81 mg PO DAILY [facility] Last Admin: 12/15/17 09:14 Dose: 81 mg Atorvastatin Calcium (Lipitor*) 20 mg PO DAILY [facility] Last Admin: 12/15/17 09:14 Dose: 20 mg Clopidogrel Bisulfate (Plavix Tab*) 75 mg PO DAILY [facility] Last Admin: 12/15/17 09:13 Dose: 75 mg Collagenase (Santyl 250 Mg/Gm Oint*) 1 applic TOPICAL DAILY [facility] Last Admin: 12/16/17 07:49 Dose: 1 applic Dextrose (D50w Syringe 50 Ml*) 12.5 gm IV PUSH .FOR FS < 60 - SS PRN PRN Reason: FS < 60 Last Admin: 12/16/17 06:19 Dose: 12.5 gm Heparin Sodium (Porcine) (Heparin Vial(*)) 5,000 units SUBCUT Q8HR [facility] Last Admin: 12/16/17 05:29 Dose: 5,000 units Cefepime HCl (Maxipime 1 Gm In Dextrose Duplex (*)) 1 gm in 50 mls @ 100 mls/ hr IV Q12H [facility] Last Admin: 12/15/17 23:20 Dose: 100 mls/hr Azithromycin 500 mg/ Sodium (Chloride) 250 mls @ 250 mls/hr IVPB Q24H [facility] Last Admin: 12/16/17 03:10 Dose: 250 mls/hr Vancomycin HCl 1,000 mg/ (Sodium Chloride) 250 mls @ 166.667 mls/hr IVPB Q24H [facility] Last Admin: 12/15/17 21:22 Dose: 166.667 mls/hr Insulin Glargine (Lantus(*)) 20 units SUBCUT BEDTIME [facility] Last Admin: 12/15/17 21:21 Dose: 20 units Insulin Human Lispro (Humalog*) 0 units SUBCUT AC [facility] PRN Reason: Protocol Last Admin: 12/16/17 06:48 Dose: Not Given Insulin Human Lispro (Humalog*) 0 units SUBCUT ACHS [facility] PRN Reason: Protocol Last Admin: 12/16/17 06:48 Dose: Not Given Metoprolol Succinate (Toprol Xl Tab*) 25 mg PO BID [facility] Last Admin: 12/15/17 21:21 Dose: 25 mg Pharmacy Consult (Vancomycin Per Pharmacy*) 1 note FOLLOW UP . PRN PRN Reason: PER PROTOCOL Pharmacy Profile Note (Vancomycin Trough Check) 1 note FOLLOW UP 2030 ONE Stop: 12/16/17 20:31 Prednisone (Deltasone Tab*) 5 mg PO DAILY [facility] Last Admin: 12/15/17 09:14 Dose: 5 mg Tiotropium [place] (Spiriva Cap.Inh*) 1 cap INH DAILY [facility] Last Admin: 12/16/17 09:12 Dose: 1 cap Torsemide (Demadex*) 60 mg PO BID [facility] Last Admin: 12/15/17 21:21 Dose: 60 mg Home Medications: Home Medications Medication Instructions Recorded Confirmed Type glipiZIDE TAB* [Glucotrol TAB*] 5 mg PO DAILY 02/03/14 12/13/17 History Insulin GLARGINE(*) [Lantus(*)] 10 units SUBCUT BEDTIME 11/10/17 12/13/17 History Amiodarone TAB* [Cordarone TAB*] 200 mg PO DAILY 12/13/17 12/13/17 History Aspirin EC Low Dose* [Ecotrin EC 81 mg PO DAILY 12/13/17 12/13/17 History Low Dose 81 MG*] Atorvastatin* [Lipitor*] 20 mg PO DAILY 12/13/17 12/13/17 History Clopidogrel TAB* [Plavix TAB*] 75 mg PO DAILY 12/13/17 12/13/17 History Insulin LISPRO* [HumaLOG*] 0 units SUBCUT TID AC 12/13/17 12/13/17 History Metoprolol Succinate XL TAB* 25 mg PO BID 12/13/17 12/13/17 History [Toprol XL TAB*] Tiotropium CAP.INH* [Spiriva 1 cap.inh INH DAILY 12/13/17 12/13/17 History CAP.INH*] Torsemide TAB* [Demadex*] 20 mg PO DAILY 12/13/17 12/13/17 History predniSONE TAB* [Deltasone TAB*] 5 mg PO DAILY 12/13/17 12/13/17 History Allergies: Allergies Allergy/AdvReac Type Severity Reaction Status Date / Time wheat Allergy Palpitation Verified 11/10/17 14:20 s Objective - Vital Signs Vital Signs: Vital Signs 12/15/17 12/15/17 12/15/17 11:07 15:39 19:37 Temperature 97.4 F 97.4 F 98.5 F Pulse Rate 60 75 76 Respiratory 18 20 16 Rate Blood Pressure 119/38 121/38 128/44 (mmHg) O2 Sat by Pulse 95 94 94 Oximetry 12/15/17 12/16/17 12/16/17 20:00 00:32 02:16 Temperature 97.4 F 97.2 F Pulse Rate 65 66 Respiratory 20 24 20 Rate Blood Pressure 134/42 114/39 (mmHg) O2 Sat by Pulse 97 96 Oximetry 12/16/17 12/16/17 12/16/17 03:28 07:46 08:00 Temperature 97.3 F Pulse Rate 62 59 Respiratory 24 16 16 Rate Blood Pressure 112/42 130/45 (mmHg) O2 Sat by Pulse 100 100 Oximetry 12/16/17 09:17 Temperature Pulse Rate 70 Respiratory 20 Rate Blood Pressure (mmHg) O2 Sat by Pulse 91 Oximetry - Intake and Output Intake and Output: Intake & Output 12/13/17 12/14/17 12/15/17 12/16/17 11:59 11:59 11:59 11:59 Intake Total 690 1681 397 Output Total 300 1350 900 Balance 390 331 -503 Weight 149 lb 9.6 oz Intake: IV Fluids 570 36 27 ABX - AZITHROMYCIN 260 27 ABX - CEFEPIME 50 16 ABX - VANCOMYCIN 260 20 IVPB 320 250 ABX - AZITHROMYCIN 250 ABX - CEFEPIME 60 ABX - VANCOMYCIN 260 Oral 120 1325 120 Output: Urine 300 1350 900 Other: Estimated Void Medium Medium # Bowel Movements 1 1 Estimated Stool Amount Small Small # Voids 2 1 ADLs: Meal Record Start: 12/13/17 20: 48 Freq: DAILY@0900,1400,1800 Status: Active Protocol: Document 12/14/17 09:00 [id number] (Rec: 12/14/17 14:25 [id number] TELE-C09) Document 12/14/17 14:00 [id number] (Rec: 12/14/17 14:26 [id number] TELE-C09) Document 12/14/17 17:34 [id number] (Rec: 12/14/17 17:34 [id number] TELE-C05) Document 12/15/17 09:00 [id number] (Rec: 12/15/17 10:47 [id number] TELE-C07) Document 12/15/17 14:00 [id number] (Rec: 12/15/17 14:02 [id number] TELE-C07) Document 12/15/17 18:00 [id number] (Rec: 12/15/17 18:38 [id number] TELE-C01) Intake and Output Start: 12/13/17 20: 48 Freq: DAILY@0600,1400,2200 Status: Active Protocol: Document 12/14/17 05:52 [id number] (Rec: 12/14/17 05:54 [id number] TELE-C33) Document 12/14/17 14:00 [id number] (Rec: 12/14/17 14:26 [id number] TELE-C09) Document 12/14/17 22:00 [id number] (Rec: 12/14/17 22:20 [id number] TELE-C01) Document 12/15/17 05:15 [id number] (Rec: 12/15/17 05:16 [id number] TELE-C34) Document 12/15/17 14:00 [id number] (Rec: 12/15/17 14:02 [id number] TELE-C07) Document 12/15/17 22:00 [id number] (Rec: 12/15/17 22:56 [id number] TELE-C08) Document 12/16/17 06:00 [id number] (Rec: 12/16/17 07:35 [id number] TELE-C03) - Physical Exam General Physical Exam Comment: He has had no change in his ecchymoses. He is weak, but fully awake, oriented and able to give an account of himself. General: Yes Cyanosis, Yes Anemia, Yes Jaundice, Yes Clubbing Skin: Abnormal: Lesions - widespread ecchymoses Lungs and Chest: Yes: Chest Expansion Full, Chest Expansion Symetrica, Respiratory Distress. No: Percussion Note Resonant, Vessicular Breath Sounds - bibasilar effusions, Crackles, Wheezes, Use of Accessory Muscles Heart Rate and Rhythm: Regular Additional Cardiovascular: Yes: Normal Heart Sounds, Pedal Edema - trace. No: Heart Murmur Abdominal Exam: Yes: Soft, Bowel Sounds Present. No: Distention, Abdominal Mass , Abdominal Tenderness Results - Results Lab Results: Laboratory Results - last 24 hr 12/15/17 12/15/17 12/15/17 11:30 12:10 16:15 WBC RBC Hgb Hct MCV MCH MCHC RDW Plt Count MPV Neut % (Auto) Lymph % (Auto) [place] % (Auto) Eos % (Auto) Baso % (Auto) Absolute Neuts (auto) Absolute Lymphs (auto) Absolute Monos (auto) Absolute Eos (auto) Absolute Basos (auto) Absolute Nucleated RBC Nucleated RBC % Sodium 135 Potassium Chloride Carbon Dioxide Anion Gap BUN Creatinine 1.64 H Est GFR ( Amer) Est GFR (Non-Af Amer) BUN/Creatinine Ratio Glucose POC Glucose (mg/dL) 130 H 184 H Calcium C-Reactive Protein Ur Random Creatinine 36.96 Ur Random Sodium 50 Renal Sodium Excretion 1.64 Vancomycin Trough 12/15/17 12/16/17 12/16/17 19:49 06:05 06:11 WBC RBC Hgb Hct MCV MCH MCHC RDW Plt Count MPV Neut % (Auto) Lymph % (Auto) [place] % (Auto) Eos % (Auto) Baso % (Auto) Absolute Neuts (auto) Absolute Lymphs (auto) Absolute Monos (auto) Absolute Eos (auto) Absolute Basos (auto) Absolute Nucleated RBC Nucleated RBC % Sodium 136 Cancelled Potassium 3.4 L Cancelled Chloride 99 L Cancelled Carbon Dioxide 30 Cancelled Anion Gap 7 Cancelled BUN 71 H Cancelled Creatinine 1.78 H Cancelled Est GFR ( Amer) 47.7 Cancelled Est GFR (Non-Af Amer) 37.1 Cancelled BUN/Creatinine Ratio 39.9 H Cancelled Glucose 30 L* Cancelled POC Glucose (mg/dL) 185 H Calcium 8.0 L Cancelled C-Reactive Protein 52.70 H Cancelled Ur Random Creatinine Ur Random Sodium Renal Sodium Excretion Vancomycin Trough 15.3 12/16/17 12/16/17 12/16/17 06:11 06:15 06:16 WBC 13.1 H RBC 2.96 L Hgb 8.7 L Hct 25 L MCV 86 MCH 29 MCHC 34 RDW 18 H Plt Count 230 MPV 7 L Neut % (Auto) 90.4 H Lymph % (Auto) 4.0 L [place] % (Auto) 4.6 Eos % (Auto) 0.9 Baso % (Auto) 0.1 Absolute Neuts (auto) 11.9 H Absolute Lymphs (auto) 0.5 L Absolute Monos (auto) 0.6 Absolute Eos (auto) 0.1 Absolute Basos (auto) 0 Absolute Nucleated RBC 0 Nucleated RBC % 0 Sodium Potassium Chloride Carbon Dioxide Anion Gap BUN Creatinine Est GFR ( Amer) Est GFR (Non-Af Amer) BUN/Creatinine Ratio Glucose POC Glucose (mg/dL) 34 L* 51 L Calcium C-Reactive Protein Ur Random Creatinine Ur Random Sodium Renal Sodium Excretion Vancomycin Trough 12/16/17 12/16/17 06:34 08:01 WBC RBC Hgb Hct MCV MCH MCHC RDW Plt Count MPV Neut % (Auto) Lymph % (Auto) [place] % (Auto) Eos % (Auto) Baso % (Auto) Absolute Neuts (auto) Absolute Lymphs (auto) Absolute Monos (auto) Absolute Eos (auto) Absolute Basos (auto) Absolute Nucleated RBC Nucleated RBC % Sodium Potassium Chloride Carbon Dioxide Anion Gap BUN Creatinine Est GFR ( Amer) Est GFR (Non-Af Amer) BUN/Creatinine Ratio Glucose POC Glucose (mg/dL) 132 H 65 L Calcium C-Reactive Protein Ur Random Creatinine Ur Random Sodium Renal Sodium Excretion Vancomycin Trough Radiology Results: Patient Name: NEIL PAULA Medical Record#: [id number] Ordering Physician: Trenton Muniz MD Acct.#: [id number] : 1940 Age: 77 Sex: M Location: [address] [place] [address]/TELEMETRY Exam Date: 12/15/17832 ADM Status: ADM IN Order Information: CT CHEST W/O Accession Number: [id number] CPT: 07212 HISTORY: Pneumonia versus edema COMPARISONS: Chest x-ray dated December 13, 2017 TECHNIQUE: Multiple contiguous axial CT scans of the chest were obtained without intravenous contrast. Coronal and sagittal multiplanar reformations are also submitted for review. FINDINGS: The study is limited by the lack of intravenous contrast. This limits evaluation of the solid organs and vasculature. NECK AND THYROID: The lower neck and thyroid are unremarkable. A left-sided pacemaker is noted. CHEST WALL: There is no lower cervical, axillary, or supraclavicular lymphadenopathy by size criteria. HEART AND PERICARDIUM: There is a moderate pericardial effusion. There are coronary and valvular cardiac calcifications. AORTA AND PULMONARY VASCULATURE: The aorta and pulmonary vasculature are normal. MEDIASTINUM: There is no mediastinal lymphadenopathy by size criteria. JYOTI: There is no hilar lymphadenopathy by size criteria. AIRWAY AND ESOPHAGUS: The airway is unremarkable, without endobronchial filling defect. The esophagus is grossly normal. LUNG PARENCHYMA: There is extensive centrilobular and panacinar emphysematous change. There is compressive atelectasis of the lung bases bilaterally with consolidative changes of the right lower lobe. PLEURA: There are moderate to large bilateral pleural effusions. UPPER ABDOMEN: The upper abdomen is unremarkable. BONES AND SOFT TISSUES: The patient is status post median sternotomy. OTHER: None. IMPRESSION: 1. MODERATE SIZED PERICARDIAL EFFUSION. 2. BILATERAL PLEURAL EFFUSIONS. 3. THERE IS COMPRESSIVE ATELECTASIS OF THE LUNG BASES BILATERALLY WITH CONSOLIDATION OF THE RIGHT LOWER LOBE. 4. ADVANCED EMPHYSEMA. 5. ATHEROSCLEROSIS. <Electronically signed by Trae Britt MD in OV> 12/15/17 1107 Dictated By: Trae Britt MD Dictated Date/Time: 12/15/17 110 Transcribed Date/Time: 12/15/17 1104 Copy to: 1 of 2 Assessment - Problem List Assessment: Patient Problems Acute combined systolic and diastolic congestive heart failure (Acute) Pleural effusion, bilateral (Acute) Pneumonia involving right lung (Acute) Sacral decubitus ulcer, stage II (Acute) Stage 3 chronic kidney disease (Acute) Type 2 diabetes mellitus, uncontrolled (Acute) Cardiac pacemaker (Chronic) Carotid stenosis (Chronic) Ecchymoses, spontaneous (Chronic) Essential hypertension (Chronic) History of cardiac arrest (Chronic) Hx of CABG (Chronic) Hyperlipidemia (Chronic) Peripheral vascular disease (Chronic) 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 However, there is not a large room for diuretic therapy given his renal insufficiency Pleural effusion, bilateral (Acute) I reviewed the CT scan with surgery - we will obtain a right thoracocentesis. I wonder if this is an empyema. Pneumonia involving right lung (Acute) His CRP and %neutrophils remain elevated - no progress. I am wondering about an empyema. Adrenal insufficiency - I note he is on prednisone. I will increase this to stress doses as I am concerned about his hypoglycemia Sacral decubitus ulcer, stage II (Acute) Seen by wound care yesterday Stage 3 chronic kidney disease (Acute) This is a major issue - I will use parenteral diuretics Type 2 diabetes mellitus, uncontrolled (Acute) He has had recurrent hypoglycemia. I have cut his lantus and will check his cortisol/add more prednisone Cardiac pacemaker (Chronic) insitu Carotid stenosis (Chronic) in active Ecchymoses, spontaneous (Chronic) no new lesions Essential hypertension (Chronic) stable BP I discussed the above with the patient and told him the following: - He has 3 organs involved - lungs (emphysema, pneumonia and effusions), heart ( systolic and diastlic CHF) and kidneys (fractionated sodium excretion shows intrinsic renal failure) - Diuretic therapy - he is on a tight rope - too much diuretic failure will worsen his renal failure, too little his CHF - Effusions: I recommended a diagnostic and therapeutic thoracocentesis - Hypoglyecmia - I apologized to the patient for this as he was more insulin sensitive than I anticipated given his infection/acute illness. I think he may have some adrenal insufficiency from prednisone use (I am not sure when this was started) - Poor prognosis - I explained this to the patient. He told me he would like to leave the hospital. I told him we could do this if he was on Hospice service. He understood this. I explained this option. He is not ready for it. Otherwise, he wishes to be full code and to continue to receive full medical therapy, despite lack of evident improvement
--- NOTE | 2017-12-16 10:17 | PN ---
Progress Note - Progress Note Date of Service: 12/16/17 Note: I spoke on the phone to Radha, his sig. other. "I am a wreck, I am not eating or sleeping" 1. He has a poor prognosis 2. I have discussed hospicecare 3. Being in denial is not helping anyone 4. She needs to take care of her own needs and also inform her daughters so they can provide her with support 5. He wishes acute medical care trial and if this doesn't work we will reconsider hospice.
[2017-12-16] MEDS: Cefepime 1 GM in Dextrose(*) 1 GM/50 ML BAG IV SCH ×2 (10:25→23:41)
[2017-12-16] MEDS: Clopidogrel TAB* 75 MG PO SCH (10:35)
[2017-12-16] MEDS: Amiodarone TAB* 200 MG PO SCH (10:35)
[2017-12-16] MEDS: Aspirin EC Low Dose* 81 MG TAB.EC PO SCH (10:35)
[2017-12-16] MEDS: Metoprolol Succinate XL TAB* 25 MG PO SCH ×2 (10:35→21:15)
[2017-12-16] MEDS: Atorvastatin* 20 MG TAB PO SCH (10:35)
[2017-12-16] MEDS: predniSONE TAB* 5 MG PO SCH (11:06)
[2017-12-16] MEDS: Torsemide TAB* 20 MG PO SCH (11:06)
[2017-12-16] MEDS ORDERED: NS 0.9% 1000 ML* 1,000 ML IV SCH (17:15)
[2017-12-16] MEDS: Furosemide IV* 10 MG/ML VIAL (40 MG) IV SLOW PU SCH (17:58)
[2017-12-16] MEDS ORDERED: Vancomycin Trough Check NOTE FOLLOW UP ONE (20:30)
[2017-12-16] MEDS: Vancomycin(*) 1,000 MG in NS 0.9% 250 ML* 250 ML IVPB SCH (21:01)
[2017-12-16] MEDS: predniSONE TAB* 20 MG PO SCH (21:13)
[2017-12-16] MEDS: Insulin GLARGINE(*) 1 UNITS UNIT SUBCUT SCH (21:14)
--- NOTE | 2017-12-16 21:21 | OP ---
OPERATIVE REPORT: DATE OF OPERATION: 12/16/17 DATE OF : 36 SURGEON: Peter Lomeli MD PRE-OP DIAGNOSIS: Bilateral pleural effusion. POST-OP DIAGNOSIS: Bilateral pleural effusion. OPERATIVE PROCEDURE: Right thoracentesis. SPECIMEN: Fluid for culture and cytology. INDICATIONS: Mr. 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 CT scan was reviewed together and the decision was made to perform a right thoracentesis. I met with the patient after reviewing his chart and obtained consent for right thoracentesis going o soo the risks, benefits, and alternatives. The patient agreed, signed consent. DESCRIPTION OF PROCEDURE: After the patient was prepped sterilely, a time-out performed. Approximat connie at 10th intercostal space on the right, we injected lidocaine for local block, an 8-L[place] thorac entesis tubing was inserted without event and approximately a liter of blood-tinged effusion was shari cony. This was non- cloudy. Specimens were sent to the lab. The tubing removed and a dressing appli ed. The patient tolerated the procedure well. [id number]/[facility] #: [id number]
[2017-12-17] MEDS: Azithromycin IV(*) 500 MG in NS 0.9% 250 ML* 250 ML IVPB SCH (03:29)
[2017-12-17 06:10] LABS: ABS Basophils 0.1 10^3/ul (0-0.2); ABS Eosinophils 0 10^3/ul (0-0.6); ABS Lymphocytes 0.4 10^3/ul (1.0-4.8); ABS Monocytes 0.2 10^3/ul (0-0.8); ABS Neutrophils 11.1 10^3/ul (1.5-7.7); ABS Nucleated RBC 0 10^3/ul; Eosinophil % 0.3 % (0-6); Hematocrit 25 % (42-52); Hemoglobin 8.4 g/dl (14.0-18.0); Lymphocyte % 3.7 % (25-47); Mean Corpuscular HGB Conc 34 g/dl (31-36); Mean Corpuscular Hemoglobin 29 pg (27-31); Mean Corpuscular Volume 86 fL (80-94); Mean Platelet Volume 7 um3 (7.4-10.4); Nucleated Red Blood Cells % 0; Platelet Count 218 10^3/ul (150-450); Red Blood Count 2.93 10^6/ul (4.0-5.4); Red Cell Distribution Width 17 % (10.5-15); White Blood Count 11.9 10^3/ul (3.5-10.8)
[2017-12-17] MEDS: Heparin VIAL(*) 5000 UNITS/ML VIAL (FIVE THOUSAND) SUBCUT SCH ×3 (06:22→21:50)
[2017-12-17 06:35] LABS: EGFR Non-African American 32.6 (>60)
[2017-12-17] MEDS: Tiotropium CAP.INH* CAP.INH/18 MCG (USE ORDER SET !) INH SCH (08:21)
[2017-12-17] MEDS ORDERED: NS 0.9% 250 ML* 250 ML ONE (08:54)
[2017-12-17] MEDS: Collagenase 250 MG/GM OINT* 30 GM TOPICAL SCH (09:00)
[2017-12-17] MEDS: Furosemide IV* 10 MG/ML VIAL (40 MG) IV SLOW PU SCH ×4 (09:05→17:07)
[2017-12-17] MEDS: Cefepime 1 GM in Dextrose(*) 1 GM/50 ML BAG IV SCH ×2 (09:05→21:50)
[2017-12-17] MEDS: Insulin LISPRO* 1 UNITS UNIT SUBCUT SCH ×7 (09:18→23:08)
[2017-12-17] MEDS: Metoprolol Succinate XL TAB* 25 MG PO SCH ×2 (09:19→21:50)
[2017-12-17] MEDS: predniSONE TAB* 20 MG PO SCH ×2 (09:20→21:50)
[2017-12-17] MEDS: Clopidogrel TAB* 75 MG PO SCH (09:20)
[2017-12-17] MEDS: Amiodarone TAB* 200 MG PO SCH (09:20)
[2017-12-17] MEDS: Aspirin EC Low Dose* 81 MG TAB.EC PO SCH (09:20)
[2017-12-17] MEDS: Atorvastatin* 20 MG TAB PO SCH (09:20)
[2017-12-17] MEDS: Vancomycin(*) 1,000 MG in NS 0.9% 250 ML* 250 ML IVPB SCH ×2 (11:02→23:32)
[2017-12-17] MEDS ORDERED: Furosemide IV* 10 MG/ML VIAL (40 MG) IV ONE (14:50)
[2017-12-17] MEDS: Insulin GLARGINE(*) 1 UNITS UNIT SUBCUT SCH (22:08)
[2017-12-18] MEDS: Azithromycin IV(*) 500 MG in NS 0.9% 250 ML* 250 ML IVPB SCH (01:31)
[2017-12-18] MEDS: Heparin VIAL(*) 5000 UNITS/ML VIAL (FIVE THOUSAND) SUBCUT SCH ×3 (06:05→21:28)
[2017-12-18 06:10] LABS: ABS Basophils 0 10^3/ul (0-0.2); ABS Eosinophils 0 10^3/ul (0-0.6); ABS Lymphocytes 0.5 10^3/ul (1.0-4.8); ABS Monocytes 0.3 10^3/ul (0-0.8); ABS Neutrophils 10.9 10^3/ul (1.5-7.7); ABS Nucleated RBC 0 10^3/ul; Corrected Retic Count 0.7 % (0.5-1.5); Eosinophil % 0 % (0-6); Hematocrit 24 % (42-52); Hematocrit for Retic CNT 24 % (42-52); Hemoglobin 8.1 g/dl (14.0-18.0); Immature Retic Fraction 0.42; Lymphocyte % 3.9 % (25-47); Mean Corpuscular HGB Conc 33 g/dl (31-36); Mean Corpuscular Hemoglobin 29 pg (27-31); Mean Corpuscular Volume 86 fL (80-94); Mean Platelet Volume 7 um3 (7.4-10.4); Nucleated Red Blood Cells % 0; Platelet Count 231 10^3/ul (150-450); RBC Retic Count 2.83 10^6/ul (4.6-6.2); Red Blood Count 2.83 10^6/ul (4.0-5.4); Red Cell Distribution Width 18 % (10.5-15); White Blood Count 11.7 10^3/ul (3.5-10.8)
[2017-12-18] MEDS: Tiotropium CAP.INH* CAP.INH/18 MCG (USE ORDER SET !) INH SCH (08:04)
--- NOTE | 2017-12-18 08:05 | PN ---
Subjective - Subjective Reason for Note: Progress Note History: He remains weak, but has no new focal symptoms. Dr. Alas noted a macular rash and also made note of his progressive anemia. He has no itching. He has some dyspnea, but no chest pain. Telemetry shows no rhythm issues. Active Problems: Active Problems Acute combined systolic and diastolic congestive heart failure (Acute) I50.41 Anemia (Acute) D64.9 Macular erythematous rash (Acute) L53.8 Malnutrition (Acute) E46 Pleural effusion, bilateral (Acute) J90 Pneumonia involving right lung (Acute) J18.9 Sacral decubitus ulcer, stage II (Acute) L89.152 Stage 3 chronic kidney disease (Acute) N18.3 Type 2 diabetes mellitus, uncontrolled (Acute) E11.65 Cardiac pacemaker (Chronic) Z95.0 Carotid stenosis (Chronic) I65.29 Cholesterol embolism (Chronic) [id number] Ecchymoses, spontaneous (Chronic) R23.3 Essential hypertension (Chronic) I10 History of cardiac arrest (Chronic) Z86.74 Hx of CABG (Chronic) Hyperlipidemia (Chronic) E78.5 Peripheral vascular disease (Chronic) I73.9 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.3599 Current Medications: Current Medications Acetaminophen (Tylenol Tab*) 650 mg PO Q4H PRN PRN Reason: FEVER/PAIN Al Hydrox/Mg Hydrox/Simethicone (Maalox Plus*) 30 ml PO Q6H PRN PRN Reason: INDIGESTION Amiodarone HCl (Cordarone Tab*) 200 mg PO DAILY [facility] Last Admin: 12/17/17 09:20 Dose: 200 mg Aspirin (Aspirin Ec Low Dose*) 81 mg PO DAILY [facility] Last Admin: 12/17/17 09:20 Dose: 81 mg Atorvastatin Calcium (Lipitor*) 20 mg PO DAILY [facility] Last Admin: 12/17/17 09:20 Dose: 20 mg Clopidogrel Bisulfate (Plavix Tab*) 75 mg PO DAILY [facility] Last Admin: 12/17/17 09:20 Dose: 75 mg Collagenase (Santyl 250 Mg/Gm Oint*) 1 applic TOPICAL DAILY [facility] Last Admin: 12/17/17 09:00 Dose: 1 applic Dextrose (D50w Syringe 50 Ml*) 12.5 gm IV PUSH .FOR FS < 60 - SS PRN PRN Reason: FS < 60 Last Admin: 12/16/17 06:19 Dose: 12.5 gm Furosemide (Lasix Iv*) 40 mg IV SLOW PU 0800,1700 [facility] Last Admin: 12/17/17 17:07 Dose: Not Given Heparin Sodium (Porcine) (Heparin Vial(*)) 5,000 units SUBCUT Q8HR [facility] Last Admin: 12/18/17 06:05 Dose: 5,000 units Cefepime HCl (Maxipime 1 Gm In Dextrose Duplex (*)) 1 gm in 50 mls @ 100 mls/ hr IV Q12H [facility] Last Admin: 12/17/17 21:50 Dose: 100 mls/hr Azithromycin 500 mg/ Sodium (Chloride) 250 mls @ 250 mls/hr IVPB Q24H [facility] Last Admin: 12/18/17 01:31 Dose: 250 mls/hr Vancomycin HCl 1,000 mg/ (Sodium Chloride) 250 mls @ 166.667 mls/hr IVPB Q12H [facility] Last Admin: 12/17/17 23:32 Dose: 166.667 mls/hr Insulin Glargine (Lantus(*)) 10 units SUBCUT BEDTIME [facility] Last Admin: 12/17/17 22:08 Dose: 10 unit Insulin Human Lispro (Humalog*) 0 units SUBCUT AC [facility] PRN Reason: Protocol Last Admin: 12/17/17 17:47 Dose: 1 unit Insulin Human Lispro (Humalog*) 0 units SUBCUT ACHS [facility] PRN Reason: Protocol Last Admin: 12/17/17 23:08 Dose: 1 unit Metoprolol Succinate (Toprol Xl Tab*) 25 mg PO BID [facility] Last Admin: 12/17/17 21:50 Dose: 25 mg Pharmacy Consult (Vancomycin Per Pharmacy*) 1 note FOLLOW UP . PRN PRN Reason: PER PROTOCOL Pharmacy Profile Note (Vancomycin Trough Check) 1 note FOLLOW UP 0830 ONE Stop: 12/18/17 08:31 Prednisone (Deltasone Tab*) 20 mg PO BID [facility] Last Admin: 12/17/17 21:50 Dose: 20 mg Tiotropium Camas (Spiriva Cap.Inh*) 1 cap INH DAILY [facility] Last Admin: 12/17/17 08:21 Dose: 1 cap Home Medications: Home Medications Medication Instructions Recorded Confirmed Type glipiZIDE TAB* [Glucotrol TAB*] 5 mg PO DAILY 02/03/14 12/13/17 History Insulin GLARGINE(*) [Lantus(*)] 10 units SUBCUT BEDTIME 11/10/17 12/13/17 History Amiodarone TAB* [Cordarone TAB*] 200 mg PO DAILY 12/13/17 12/13/17 History Aspirin EC Low Dose* [Ecotrin EC 81 mg PO DAILY 12/13/17 12/13/17 History Low Dose 81 MG*] Atorvastatin* [Lipitor*] 20 mg PO DAILY 12/13/17 12/13/17 History Clopidogrel TAB* [Plavix TAB*] 75 mg PO DAILY 12/13/17 12/13/17 History Insulin LISPRO* [HumaLOG*] 0 units SUBCUT TID AC 12/13/17 12/13/17 History Metoprolol Succinate XL TAB* 25 mg PO BID 12/13/17 12/13/17 History [Toprol XL TAB*] Tiotropium CAP.INH* [Spiriva 1 cap.inh INH DAILY 12/13/17 12/13/17 History CAP.INH*] Torsemide TAB* [Demadex*] 20 mg PO DAILY 12/13/17 12/13/17 History predniSONE TAB* [Deltasone TAB*] 5 mg PO DAILY 12/13/17 12/13/17 History Allergies: Allergies Allergy/AdvReac Type Severity Reaction Status Date / Time wheat Allergy Palpitation Verified 11/10/17 14:20 s Objective - Vital Signs Vital Signs: Vital Signs 12/17/17 12/17/17 12/17/17 09:24 11:13 16:41 Temperature 97.2 F 97.3 F Pulse Rate 66 62 Respiratory 16 20 Rate Blood Pressure 122/52 102/38 113/38 (mmHg) O2 Sat by Pulse 99 100 Oximetry 12/17/17 12/17/17 12/17/17 19:51 20:00 23:36 Temperature 98.3 F 97.5 F Pulse Rate 70 67 Respiratory 20 20 20 Rate Blood Pressure 119/42 126/47 (mmHg) O2 Sat by Pulse 99 98 Oximetry 12/18/17 03:44 Temperature 97.3 F Pulse Rate 62 Respiratory 18 Rate Blood Pressure 126/45 (mmHg) O2 Sat by Pulse 98 Oximetry - Intake and Output Intake and Output: Intake & Output 12/15/17 12/16/17 12/17/17 12/18/17 10:59 10:59 11:59 11:59 Intake Total 505.2 Output Total 800 Balance -294.8 Weight 149 lb 9.6 oz Intake: IV Fluids 55.2 ABX - AZITHROMYCIN ABX - CEFEPIME 55.2 ABX - VANCOMYCIN NS (0.9%) IVPB 250 ABX - AZITHROMYCIN ABX - CEFEPIME ABX - VANCOMYCIN 250 Oral 200 Output: Urine 800 Other: Estimated Void # Bowel Movements Estimated Stool Amount # Voids 1 ADLs: Meal Record Start: 12/13/17 20: 48 Freq: DAILY@0900,1400,1800 Status: Active Protocol: Document 12/14/17 09:00 [id number] (Rec: 12/14/17 14:25 [id number] TELE-C09) Document 12/14/17 14:00 [id number] (Rec: 12/14/17 14:26 [id number] TELE-C09) Document 12/14/17 17:34 [id number] (Rec: 12/14/17 17:34 [id number] TELE-C05) Document 12/15/17 09:00 [id number] (Rec: 12/15/17 10:47 [id number] TELE-C07) Document 12/15/17 14:00 [id number] (Rec: 12/15/17 14:02 [id number] TELE-C07) Document 12/15/17 18:00 [id number] (Rec: 12/15/17 18:38 [id number] TELE-C01) Document 12/16/17 09:00 [id number] (Rec: 12/16/17 19:21 [id number] TELE-C07) Document 12/16/17 14:00 [id number] (Rec: 12/16/17 19:24 [id number] TELE-C07) Document 12/17/17 09:00 [id number] (Rec: 12/17/17 14:48 [id number] TELE-C01) Document 12/17/17 14:00 [id number] (Rec: 12/17/17 14:49 [id number] TELE-C01) Document 12/17/17 18:00 [id number] (Rec: 12/17/17 18:01 [id number] TELE-C03) Intake and Output Start: 12/13/17 20: 48 Freq: DAILY@0600,1400,2200 Status: Active Protocol: Document 12/14/17 05:52 [id number] (Rec: 12/14/17 05:54 [id number] TELE-C33) Document 12/14/17 14:00 [id number] (Rec: 12/14/17 14:26 [id number] TELE-C09) Document 12/14/17 22:00 [id number] (Rec: 12/14/17 22:20 [id number] TELE-C01) Document 12/15/17 05:15 [id number] (Rec: 12/15/17 05:16 [id number] TELE-C34) Document 12/15/17 14:00 [id number] (Rec: 12/15/17 14:02 [id number] TELE-C07) Document 12/15/17 22:00 [id number] (Rec: 12/15/17 22:56 [id number] TELE-C08) Document 12/16/17 06:00 [id number] (Rec: 12/16/17 07:35 [id number] TELE-C03) Document 12/16/17 15:40 [id number] (Rec: 12/16/17 15:40 [id number] TELE-C08) Document 12/16/17 22:00 [id number] (Rec: 12/16/17 23:08 [id number] TELE-C01) Document 12/17/17 05:49 [id number] (Rec: 12/17/17 05:54 [id number] TELE-C33) Document 12/17/17 14:00 [id number] (Rec: 12/17/17 14:49 [id number] TELE-C01) Document 12/17/17 22:00 [id number] (Rec: 12/17/17 22:13 [id number] TELE-C13) Document 12/18/17 06:11 [id number] (Rec: 12/18/17 06:11 [id number] TELE-M06) - Physical Exam General Physical Exam Comment: He remains weak, and is lying on his back on an air mattress. He is unable to turn himself in bed. He has a strong computer systems software architect strength, though. He is conversational and is oriented. He has a macular rash on his abdomen and arms General: No Cyanosis, Yes Anemia, No Jaundice, No Clubbing Lungs and Chest: Yes: Chest Expansion Full, Chest Expansion Symetrica, Vessicular Breath Sounds. No: Crackles, Wheezes, Respiratory Distress, Use of Accessory Muscles Heart Rate and Rhythm: Regular Additional Cardiovascular: Yes: Normal Heart Sounds. No: Heart Murmur, Pedal Edema - Has edema of his left > right arm Abdominal Exam: Yes: Soft, Bowel Sounds Present. No: Distention, Hepatomegaly, Abdominal Tenderness Results - Results Lab Results: Laboratory Results - last 24 hr 12/16/17 12/17/17 12/17/17 06:05 05:50 11:33 WBC RBC RBC (Retic) Hgb Hct HCT (Retic) MCV MCH MCHC RDW Plt Count MPV Neut % (Auto) Lymph % (Auto) [place] % (Auto) Eos % (Auto) Baso % (Auto) Absolute Neuts (auto) Absolute Lymphs (auto) Absolute Monos (auto) Absolute Eos (auto) Absolute Basos (auto) Absolute Nucleated RBC Nucleated RBC % ESR Retic Count, Calc Corrected Retic Count Retic Shift Factor Retic Production Index Immature Retic Fraction Mean Retic Volume Sodium 136 135 Potassium 3.4 L 4.1 Chloride 99 L 98 L Carbon Dioxide 30 32 Anion Gap 7 5 BUN 71 H 76 H Creatinine 1.78 H 1.99 H Est GFR ( Amer) 47.7 41.9 Est GFR (Non-Af Amer) 37.1 32.6 BUN/Creatinine Ratio 39.9 H 38.2 H Glucose 30 L* 165 H POC Glucose (mg/dL) 183 H Calcium 8.0 L 8.0 L Total Bilirubin AST ALT Alkaline Phosphatase C-Reactive Protein 52.70 H 71.17 H B-Natriuretic Peptide Total Protein Albumin Globulin Albumin/Globulin Ratio Prealbumin Cancelled Cancelled Vitamin B12 Cancelled Cancelled 25-OH Vitamin D Total Cancelled Cancelled TSH Cancelled Cancelled Cortisol 24.27 12/17/17 12/17/17 12/17/17 16:32 18:41 20:00 WBC RBC RBC (Retic) Hgb Hct HCT (Retic) MCV MCH MCHC RDW Plt Count MPV Neut % (Auto) Lymph % (Auto) [place] % (Auto) Eos % (Auto) Baso % (Auto) Absolute Neuts (auto) Absolute Lymphs (auto) Absolute Monos (auto) Absolute Eos (auto) Absolute Basos (auto) Absolute Nucleated RBC Nucleated RBC % ESR Retic Count, Calc Corrected Retic Count Retic Shift Factor Retic Production Index Immature Retic Fraction Mean Retic Volume Sodium Potassium Chloride Carbon Dioxide Anion Gap BUN Creatinine Est GFR ( Amer) Est GFR (Non-Af Amer) BUN/Creatinine Ratio Glucose POC Glucose (mg/dL) 161 H 272 H Calcium Total Bilirubin AST ALT Alkaline Phosphatase C-Reactive Protein B-Natriuretic Peptide Total Protein Albumin Globulin Albumin/Globulin Ratio Prealbumin 9 L Vitamin B12 504 25-OH Vitamin D Total 7.1 L TSH 1.57 Cortisol 12/18/17 12/18/17 12/18/17 05:51 05:51 05:51 WBC 11.7 H RBC 2.83 L RBC (Retic) 2.83 L Hgb 8.1 L Hct 24 L HCT (Retic) 24 L MCV 86 MCH 29 MCHC 33 RDW 18 H Plt Count 231 MPV 7 L Neut % (Auto) 93.2 H Lymph % (Auto) 3.9 L [place] % (Auto) 2.7 Eos % (Auto) 0 Baso % (Auto) 0.2 Absolute Neuts (auto) 10.9 H Absolute Lymphs (auto) 0.5 L Absolute Monos (auto) 0.3 Absolute Eos (auto) 0 Absolute Basos (auto) 0 Absolute Nucleated RBC 0 Nucleated RBC % 0 ESR 30 Retic Count, Calc 1.3 Corrected Retic Count 0.7 Retic Shift Factor 2.0 Retic Production Index 0.40 Immature Retic Fraction 0.42 Mean Retic Volume 116.0 Sodium 133 Potassium 4.4 Chloride 96 L Carbon Dioxide 33 H Anion Gap 4 BUN 79 H Creatinine 1.92 H Est GFR ( Amer) 43.7 Est GFR (Non-Af Amer) 34.0 BUN/Creatinine Ratio 41.1 H Glucose 248 H POC Glucose (mg/dL) Calcium 7.8 L Total Bilirubin 0.70 AST 15 ALT 30 Alkaline Phosphatase 77 C-Reactive Protein 66.45 H B-Natriuretic Peptide 1302 H Total Protein 4.3 L Albumin 1.9 L Globulin 2.4 Albumin/Globulin Ratio 0.8 L Prealbumin Vitamin B12 25-OH Vitamin D Total TSH Cortisol 12/18/17 07:41 WBC RBC RBC (Retic) Hgb Hct HCT (Retic) MCV MCH MCHC RDW Plt Count MPV Neut % (Auto) Lymph % (Auto) [place] % (Auto) Eos % (Auto) Baso % (Auto) Absolute Neuts (auto) Absolute Lymphs (auto) Absolute Monos (auto) Absolute Eos (auto) Absolute Basos (auto) Absolute Nucleated RBC Nucleated RBC % ESR Retic Count, Calc Corrected Retic Count Retic Shift Factor Retic Production Index Immature Retic Fraction Mean Retic Volume Sodium Potassium Chloride Carbon Dioxide Anion Gap BUN Creatinine Est GFR ( Amer) Est GFR (Non-Af Amer) BUN/Creatinine Ratio Glucose POC Glucose (mg/dL) 263 H Calcium Total Bilirubin AST ALT Alkaline Phosphatase C-Reactive Protein B-Natriuretic Peptide Total Protein Albumin Globulin Albumin/Globulin Ratio Prealbumin Vitamin B12 25-OH Vitamin D Total TSH Cortisol Assessment - Problem List Assessment: Patient Problems Acute combined systolic and diastolic congestive heart failure (Acute) Anemia (Acute) Macular erythematous rash (Acute) Malnutrition (Acute) Pleural effusion, bilateral (Acute) Pneumonia involving right lung (Acute) Sacral decubitus ulcer, stage II (Acute) Stage 3 chronic kidney disease (Acute) Type 2 diabetes mellitus, uncontrolled (Acute) Cardiac pacemaker (Chronic) Carotid stenosis (Chronic) Cholesterol embolism (Chronic) Ecchymoses, spontaneous (Chronic) Essential hypertension (Chronic) History of cardiac arrest (Chronic) Hx of CABG (Chronic) Hyperlipidemia (Chronic) Peripheral vascular disease (Chronic) 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 His I and O show poor input and output despite IV diuretic therapy. Anemia (Acute) Natasha Alas MD pointed out a drop in his hemoglobin. His B12 is normal. I will order an iron panel - ferritin would not be helpful owing to acute phase reaction. I will give him 1 unit of packed RBCs Pneumonia involving right lung (Acute) Day 4 of IV antibacterials - no change in his CRP. His microbiology is negative Macular erythematous rash (Acute) This may be antibacterial related, but looks relatively mild and is causing him no symptoms. I will give him another 24 hours of IV antibacterials (5 days) Malnutrition (Acute) He has a low pre-albumin. We have requested a dietitian consult Pleural effusion, bilateral (Acute) He had a thoracocentesis 2 days ago. This was a blood tap. The WBC was not particularly elevated, making an empyema highly unlikely Sacral decubitus ulcer, stage II (Acute) He needs to be positioned off his decubitus area Stage 3 chronic kidney disease (Acute) His Cr remains elevated, as does his BUN. He has a poor urine output despite the diuretic. 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 I will cut back the steroids. He was started on them at [facility] owing to cholesterol crystal emboli Cardiac pacemaker (Chronic) Telemetry shows no rhythm disturbances after 4 days - I will discontinue Carotid stenosis (Chronic) Ecchymoses, spontaneous (Chronic) This is not ecchymoses, but cholesterol crystal emboli Essential hypertension (Chronic) BP controlled History of cardiac arrest (Chronic) Hx of CABG (Chronic) Hyperlipidemia (Chronic) continue current Rx Peripheral vascular disease (Chronic) This was studied at [facility] ([place], [place]) ROX[place] 0.43 TBI 0.27. He had a right SFA occlusion not meriting intervention
[2017-12-18] MEDS ORDERED: diPHENhydraMINE PO* 25 MG PO ONE ×2 (08:24→15:00)
[2017-12-18] MEDS ORDERED: Vancomycin Trough Check NOTE FOLLOW UP ONE (08:30)
[2017-12-18] MEDS: Insulin LISPRO* 1 UNITS UNIT SUBCUT SCH ×7 (08:38→21:23)
[2017-12-18] MEDS: Furosemide IV* 10 MG/ML VIAL (40 MG) IV SLOW PU SCH ×2 (08:38→18:28)
[2017-12-18] MEDS: Cefepime 1 GM in Dextrose(*) 1 GM/50 ML BAG IV SCH ×2 (08:38→21:12)
[2017-12-18] MEDS: Atorvastatin* 20 MG TAB PO SCH (08:39)
[2017-12-18] MEDS: Clopidogrel TAB* 75 MG PO SCH (08:39)
[2017-12-18] MEDS: Metoprolol Succinate XL TAB* 25 MG PO SCH ×2 (08:39→21:11)
[2017-12-18] MEDS: Amiodarone TAB* 200 MG PO SCH (08:40)
[2017-12-18] MEDS: Collagenase 250 MG/GM OINT* 30 GM TOPICAL SCH ×2 (08:40→11:02)
[2017-12-18] MEDS: Aspirin EC Low Dose* 81 MG TAB.EC PO SCH (08:40)
[2017-12-18] MEDS: predniSONE TAB* 20 MG PO SCH (08:45)
[2017-12-18 09:18] LABS: Vancomycin Trough 27.2 mcg/mL
[2017-12-18] MEDS: Vancomycin(*) 1,000 MG in NS 0.9% 250 ML* 250 ML IVPB SCH (11:16)
[2017-12-18] MEDS: Insulin GLARGINE(*) 1 UNITS UNIT SUBCUT SCH (21:10)
[2017-12-19] MEDS: Azithromycin IV(*) 500 MG in NS 0.9% 250 ML* 250 ML IVPB SCH (01:21)
[2017-12-19] MEDS: Heparin VIAL(*) 5000 UNITS/ML VIAL (FIVE THOUSAND) SUBCUT SCH ×2 (05:50→13:34)
[2017-12-19] MEDS ORDERED: Vancomycin Random Level* NOTE FOLLOW UP ONE (06:00)
[2017-12-19 06:27] LABS: Hematocrit 28 % (42-52); Hemoglobin 9.4 g/dl (14.0-18.0)
[2017-12-19 06:42] LABS: EGFR Non-African American 31.8 (>60)
[2017-12-19] MEDS: Insulin LISPRO* 1 UNITS UNIT SUBCUT SCH ×7 (08:30→21:33)
--- NOTE | 2017-12-19 08:33 | PN ---
Subjective - Subjective Reason for Note: Progress Note History: He states he feels a bit better today. He has no pain. He has had looser stool due to the antibacterial treatment. He thinks his breathing is about the same. He would like to eat breakfast and wants to get better. He denies a cough or sputum. Active Problems: Active Problems Acute combined systolic and diastolic congestive heart failure (Acute) I50.41 Anemia (Acute) D64.9 Macular erythematous rash (Acute) L53.8 Malnutrition (Acute) E46 Pleural effusion, bilateral (Acute) J90 Pneumonia involving right lung (Acute) J18.9 Sacral decubitus ulcer, stage II (Acute) L89.152 Stage 3 chronic kidney disease (Acute) N18.3 Type 2 diabetes mellitus, uncontrolled (Acute) E11.65 Cardiac pacemaker (Chronic) Z95.0 Carotid stenosis (Chronic) I65.29 Cholesterol embolism (Chronic) [id number] Ecchymoses, spontaneous (Chronic) R23.3 Essential hypertension (Chronic) I10 History of cardiac arrest (Chronic) Z86.74 Hx of CABG (Chronic) Hyperlipidemia (Chronic) E78.5 Peripheral vascular disease (Chronic) I73.9 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.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 Current Medications: Current Medications Acetaminophen (Tylenol Tab*) 650 mg PO Q4H PRN PRN Reason: FEVER/PAIN Al Hydrox/Mg Hydrox/Simethicone (Maalox Plus*) 30 ml PO Q6H PRN PRN Reason: INDIGESTION Amiodarone HCl (Cordarone Tab*) 200 mg PO DAILY [facility] Last Admin: 12/18/17 08:40 Dose: 200 mg Aspirin (Aspirin Ec Low Dose*) 81 mg PO DAILY [facility] Last Admin: 12/18/17 08:40 Dose: 81 mg Atorvastatin Calcium (Lipitor*) 20 mg PO DAILY [facility] Last Admin: 12/18/17 08:39 Dose: 20 mg Clopidogrel Bisulfate (Plavix Tab*) 75 mg PO DAILY [facility] Last Admin: 12/18/17 08:39 Dose: 75 mg Collagenase (Santyl 250 Mg/Gm Oint*) 1 applic TOPICAL DAILY [facility] Last Admin: 12/18/17 11:02 Dose: 1 applic Dextrose (D50w Syringe 50 Ml*) 12.5 gm IV PUSH .FOR FS < 60 - SS PRN PRN Reason: FS < 60 Last Admin: 12/16/17 06:19 Dose: 12.5 gm Furosemide (Lasix Iv*) 40 mg IV SLOW PU 0800,1700 [facility] Last Admin: 12/18/17 18:28 Dose: 40 mg Heparin Sodium (Porcine) (Heparin Vial(*)) 5,000 units SUBCUT Q8HR [facility] Last Admin: 12/19/17 05:50 Dose: 5,000 units Cefepime HCl (Maxipime 1 Gm In Dextrose Duplex (*)) 1 gm in 50 mls @ 100 mls/ hr IV Q12H [facility] Last Admin: 12/18/17 21:12 Dose: 100 mls/hr Azithromycin 500 mg/ Sodium (Chloride) 250 mls @ 250 mls/hr IVPB Q24H [facility] Last Admin: 12/19/17 01:21 Dose: 250 mls/hr Vancomycin HCl 1,000 mg/ (Sodium Chloride) 250 mls @ 166.667 mls/hr IVPB Q24H [facility] Insulin Glargine (Lantus(*)) 10 units SUBCUT BEDTIME [facility] Last Admin: 12/18/17 21:10 Dose: 10 unit Insulin Human Lispro (Humalog*) 0 units SUBCUT AC [facility] PRN Reason: Protocol Last Admin: 12/18/17 18:30 Dose: 3 unit Insulin Human Lispro (Humalog*) 0 units SUBCUT ACHS [facility] PRN Reason: Protocol Last Admin: 12/18/17 21:23 Dose: Not Given Metoprolol Succinate (Toprol Xl Tab*) 25 mg PO BID [facility] Last Admin: 12/18/17 21:11 Dose: 25 mg Pharmacy Consult (Vancomycin Per Pharmacy*) 1 note FOLLOW UP . PRN PRN Reason: PER PROTOCOL Prednisone (Deltasone Tab*) 10 mg PO DAILY [facility] Last Admin: 12/18/17 08:45 Dose: 10 mg Tiotropium [place] (Spiriva Cap.Inh*) 1 cap INH DAILY [facility] Last Admin: 12/18/17 08:04 Dose: 1 cap Home Medications: Home Medications Medication Instructions Recorded Confirmed Type glipiZIDE TAB* [Glucotrol TAB*] 5 mg PO DAILY 02/03/14 12/13/17 History Insulin GLARGINE(*) [Lantus(*)] 10 units SUBCUT BEDTIME 11/10/17 12/13/17 History Amiodarone TAB* [Cordarone TAB*] 200 mg PO DAILY 12/13/17 12/13/17 History Aspirin EC Low Dose* [Ecotrin EC 81 mg PO DAILY 12/13/17 12/13/17 History Low Dose 81 MG*] Atorvastatin* [Lipitor*] 20 mg PO DAILY 12/13/17 12/13/17 History Clopidogrel TAB* [Plavix TAB*] 75 mg PO DAILY 12/13/17 12/13/17 History Insulin LISPRO* [HumaLOG*] 0 units SUBCUT TID AC 12/13/17 12/13/17 History Metoprolol Succinate XL TAB* 25 mg PO BID 12/13/17 12/13/17 History [Toprol XL TAB*] Tiotropium CAP.INH* [Spiriva 1 cap.inh INH DAILY 12/13/17 12/13/17 History CAP.INH*] Torsemide TAB* [Demadex*] 20 mg PO DAILY 12/13/17 12/13/17 History predniSONE TAB* [Deltasone TAB*] 5 mg PO DAILY 12/13/17 12/13/17 History Allergies: Allergies Allergy/AdvReac Type Severity Reaction Status Date / Time wheat Allergy Palpitation Verified 11/10/17 14:20 s Objective - Vital Signs Vital Signs: Vital Signs 12/18/17 12/18/17 12/18/17 08:45 10:50 11:21 Temperature 97.3 F Pulse Rate 73 Respiratory 18 18 20 Rate Blood Pressure 149/40 (mmHg) O2 Sat by Pulse 95 Oximetry 12/18/17 12/18/17 12/18/17 14:33 15:29 18:31 Temperature 97.4 F Pulse Rate 72 Respiratory 20 20 Rate Blood Pressure 128/46 (mmHg) O2 Sat by Pulse 98 Oximetry 12/18/17 12/19/17 12/19/17 20:00 00:33 04:01 Temperature 97.6 F 97.3 F Pulse Rate 68 67 Respiratory 20 16 16 Rate Blood Pressure 130/37 123/47 (mmHg) O2 Sat by Pulse 96 98 Oximetry - Intake and Output Intake and Output: Intake & Output 12/16/17 12/17/17 12/18/17 12/19/17 10:59 11:59 11:59 11:59 Intake Total 505.2 1296 Output Total 950 220 Balance -444.8 1076 Weight 149 lb 9.6 oz 149 lb 9.6 oz Intake: IV Fluids 55.2 250 ABX - AZITHROMYCIN 250 ABX - CEFEPIME 55.2 NS (0.9%) IVPB 250 100 ABX - AZITHROMYCIN ABX - CEFEPIME 100 ABX - VANCOMYCIN 250 Oral 200 655 Packed Cells 291 Output: Urine 950 220 Other: Estimated Void Small # Bowel Movements 1 0 Estimated Stool Amount Small # Voids 1 1 ADLs: Meal Record Start: 12/13/17 20: 48 Freq: DAILY@0900,1400,1800 Status: Active Protocol: Document 12/14/17 09:00 [id number] (Rec: 12/14/17 14:25 [id number] TELE-C09) Document 12/14/17 14:00 [id number] (Rec: 12/14/17 14:26 [id number] TELE-C09) Document 12/14/17 17:34 [id number] (Rec: 12/14/17 17:34 [id number] TELE-C05) Document 12/15/17 09:00 [id number] (Rec: 12/15/17 10:47 [id number] TELE-C07) Document 12/15/17 14:00 [id number] (Rec: 12/15/17 14:02 [id number] TELE-C07) Document 12/15/17 18:00 [id number] (Rec: 12/15/17 18:38 [id number] TELE-C01) Document 12/16/17 09:00 [id number] (Rec: 12/16/17 19:21 [id number] TELE-C07) Document 12/16/17 14:00 [id number] (Rec: 12/16/17 19:24 [id number] TELE-C07) Document 12/17/17 09:00 [id number] (Rec: 12/17/17 14:48 [id number] TELE-C01) Document 12/17/17 14:00 [id number] (Rec: 12/17/17 14:49 [id number] TELE-C01) Document 12/17/17 18:00 [id number] (Rec: 12/17/17 18:01 [id number] TELE-C03) Document 03/12/18 11:04 [id number] (Rec: 12/18/17 11:04 [id number] TELE-C01) Document 12/18/17 13:17 [id number] (Rec: 12/18/17 13:18 [id number] TELE-C01) Document 12/18/17 18:00 [id number] (Rec: 12/18/17 21:43 [id number] TELE-C13) Intake and Output Start: 12/13/17 20: 48 Freq: DAILY@0600,1400,2200 Status: Active Protocol: Document 12/14/17 05:52 [id number] (Rec: 12/14/17 05:54 [id number] TELE-C33) Document 12/14/17 14:00 [id number] (Rec: 12/14/17 14:26 [id number] TELE-C09) Document 12/14/17 22:00 [id number] (Rec: 12/14/17 22:20 [id number] TELE-C01) Document 12/15/17 05:15 [id number] (Rec: 12/15/17 05:16 [id number] TELE-C34) Document 12/15/17 14:00 [id number] (Rec: 12/15/17 14:02 [id number] TELE-C07) Document 12/15/17 22:00 [id number] (Rec: 12/15/17 22:56 [id number] TELE-C08) Document 12/16/17 06:00 [id number] (Rec: 12/16/17 07:35 IQS6312 TELE-C03) Document 12/16/17 15:40 [id number] (Rec: 12/16/17 15:40 [id number] TELE-C08) Document 12/16/17 22:00 [id number] (Rec: 12/16/17 23:08 [id number] TELE-C01) Document 12/17/17 05:49 [id number] (Rec: 12/17/17 05:54 [id number] TELE-C33) Document 12/17/17 14:00 [id number] (Rec: 12/17/17 14:49 [id number] TELE-C01) Document 12/17/17 22:00 [id number] (Rec: 12/17/17 22:13 [id number] TELE-C13) Document 12/18/17 06:11 [id number] (Rec: 12/18/17 06:11 [id number] TELE-M06) Document 12/18/17 12:38 [id number] (Rec: 12/18/17 12:38 [id number] TELE-C01) Document 12/18/17 17:30 [id number] (Rec: 12/18/17 20:02 [id number] TELE-C07) Document 12/18/17 21:44 [id number] (Rec: 12/18/17 21:46 [id number] TELE-C13) Document 12/19/17 05:33 [id number] (Rec: 12/19/17 05:33 [id number] TELE-C34) - Physical Exam General Physical Exam Comment: He continues to have swelling of his left arm. The macular rash is about the same and not spreading. The ecchymoses/embolic lesions are the same - nothing new. He is weak and unable to move himself in bed. His left eye shows ptosis, but he is able to open it at will - states this is nothing new. General: No Cyanosis, Yes Anemia, No Jaundice, No Clubbing Skin: Abnormal: Lesions Lungs and Chest: Yes: Chest Expansion Full, Chest Expansion Symetrica, Percussion Note Resonant - diminished at bases, Use of Accessory Muscles. No: Vessicular Breath Sounds - emphysematous - diminished at bases, Wheezes, Respiratory Distress Heart Rate and Rhythm: Regular Additional Cardiovascular: Yes: Normal Heart Sounds, Other - arms edematous L> R. No: Heart Murmur, Pedal Edema Abdominal Exam: Yes: Soft, Bowel Sounds Present. No: Distention, Abdominal Mass , Abdominal Tenderness - Extremities Cranial Nerves II-XII Intact: Yes - left eyelid weak Limbs: Abnormal Power - hand anesthesiologist assistant remains strong, central weakness - Neuro Orientation: A/O x3 Speech: Normal Results - Results Lab Results: Laboratory Results - last 24 hr 12/18/17 12/18/17 12/18/17 05:51 08:36 11:54 Hgb Hct Sodium Potassium Chloride Carbon Dioxide Anion Gap BUN Creatinine Est GFR ( Amer) Est GFR (Non-Af Amer) BUN/Creatinine Ratio Glucose POC Glucose (mg/dL) 311 H Calcium Iron 60 TIBC 174 L % Saturation 34 Unsat Iron Binding 114 Transferrin 124 L Vancomycin Trough 27.2 Random Vancomycin Blood Type A Negative Antibody Screen Negative Crossmatch See Detail 12/18/17 12/18/17 12/19/17 16:43 20:58 05:52 Hgb 9.4 L Hct 28 L Sodium Potassium Chloride Carbon Dioxide Anion Gap BUN Creatinine Est GFR ( Amer) Est GFR (Non-Af Amer) BUN/Creatinine Ratio Glucose POC Glucose (mg/dL) 272 H 246 H Calcium Iron TIBC % Saturation Unsat Iron Binding Transferrin Vancomycin Trough Random Vancomycin Blood Type Antibody Screen Crossmatch 12/19/17 12/19/17 05:52 08:02 Hgb Hct Sodium 135 Potassium 3.9 Chloride 98 L Carbon Dioxide 33 H Anion Gap 4 BUN 84 H Creatinine 2.03 H Est GFR ( Amer) 40.9 Est GFR (Non-Af Amer) 31.8 BUN/Creatinine Ratio 41.4 H Glucose 106 H POC Glucose (mg/dL) 83 Calcium 8.3 L Iron TIBC % Saturation Unsat Iron Binding Transferrin Vancomycin Trough Random Vancomycin 23.6 Blood Type Antibody Screen Crossmatch Assessment - Problem List Assessment: Patient Problems Acute combined systolic and diastolic congestive heart failure (Acute) Anemia (Acute) Macular erythematous rash (Acute) Malnutrition (Acute) Pleural effusion, bilateral (Acute) Pneumonia involving right lung (Acute) Sacral decubitus ulcer, stage II (Acute) Stage 3 chronic kidney disease (Acute) Type 2 diabetes mellitus, uncontrolled (Acute) Cardiac pacemaker (Chronic) Carotid stenosis (Chronic) Cholesterol embolism (Chronic) Ecchymoses, spontaneous (Chronic) Essential hypertension (Chronic) History of cardiac arrest (Chronic) Hx of CABG (Chronic) Hyperlipidemia (Chronic) Peripheral vascular disease (Chronic) 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 I will obtain a CXR. I will obtain a CRP and a %neut tomorrow. I plan to consolidate his antibacterial treatment and stop his vancomycin Acute combined systolic and diastolic congestive heart failure (Acute) I think this remains a problem. However, I think that the aggressive diuretic therapy is now counterproductive - his BUN/CR are rising. I will need to cut back on this. Anemia (Acute) He tolerated the transfusion. I think this Hgb 9.4 is adequate. His fecal occult blood was positive - I will start him on a PPI Macular erythematous rash This is about the same Malnutrition (Acute) He has the will to eat, but not the appetitie Pleural effusion, bilateral (Acute) This is ongoing - we will obtain a CXR Sacral decubitus ulcer, stage II (Acute) ongoing skin care Stage 3 chronic kidney disease (Acute) This is limiting his diuretic therapy. I think we have reduced his intravascular volume without clearing all the interstitial fluid. I will reduce his diuretic therapy and encourage he drinks more water Type 2 diabetes mellitus, uncontrolled (Acute) He is hyperglycemic, I will increase his lantus slightly (last time we did this he developed hypoglycemia) Cardiac pacemaker (Chronic) Carotid stenosis (Chronic) Cholesterol embolism (Chronic) Ecchymoses, spontaneous (Chronic) It remains an open question if this is the correct diagnosis. If he had extensive emboli to skin, he is likely to have damaged other organs too and this may be part of the reason for his general decline Essential hypertension (Chronic) He is maintaining h is BP History of cardiac arrest (Chronic) Hx of CABG (Chronic) Hyperlipidemia (Chronic) continue current Rx Peripheral vascular disease (Chronic) He wants to maintain hope and to continue with acute medical management. Unfortunately, his clinical course is not obliging him with the results he wishes. He is failing to thrive. This is likely multifactorial. I do not think the pneumonia is the sole cause of this as he has not improved with antibacterial therapy and his inflammatory indicators have not changed despite this aggressive treatment. I will give him a 5th day of this treatment and then cut back. I called Radha, his domestic partner, she is encouraging him to eat and drink. She doesn't like to see him suffer like this.
[2017-12-19] MEDS: Clopidogrel TAB* 75 MG PO SCH (08:45)
[2017-12-19] MEDS: Aspirin EC Low Dose* 81 MG TAB.EC PO SCH (08:45)
[2017-12-19] MEDS: Cefepime 1 GM in Dextrose(*) 1 GM/50 ML BAG IV SCH ×2 (08:45→21:32)
[2017-12-19] MEDS: Metoprolol Succinate XL TAB* 25 MG PO SCH ×2 (08:45→21:33)
[2017-12-19] MEDS: Atorvastatin* 20 MG TAB PO SCH (08:45)
[2017-12-19] MEDS: predniSONE TAB* 20 MG PO SCH (08:46)
[2017-12-19] MEDS: Amiodarone TAB* 200 MG PO SCH (08:46)
[2017-12-19] MEDS: Tiotropium CAP.INH* CAP.INH/18 MCG (USE ORDER SET !) INH SCH (08:57)
--- NOTE | 2017-12-19 10:36 | RAD ---
INDICATION: Congestive heart failure COMPARISON: Most recent comparison chest x-ray dated December 13, 2017 TECHNIQUE: PA and lateral views of the chest were obtained. FINDINGS: Again seen is a left upper chest cardiac pacer with 2 leads overlying the heart and sternotomy wires. There are patchy bilateral densities most severely overlying the right upper lobe. These are worse when compared to the previous chest x-ray. There is density obscuring the bilateral lung bases worse on the left than the right. Visualized bones are normal for the patient's age. There is no radiographic evidence of free air beneath the diaphragm IMPRESSION: OVERALL WORSENING AERATION INCLUDING LEFT LUNG PLEURAL EFFUSION WHEN COMPARED TO THE DECEMBER 13, 2017 CHEST X-RAY. THE PATCHY DENSITIES OVERLYING THE RIGHT LUNG COULD BE DUE TO WORSENING PULMONARY EDEMA OR PNEUMONIA DEPENDING ON THE PATIENT'S CLINICAL PRESENTATION.
[2017-12-19] MEDS: Furosemide IV* 10 MG/ML VIAL (40 MG) IV SLOW PU SCH (10:42)
[2017-12-19] MEDS ORDERED: Vancomycin(*) 1,000 MG in NS 0.9% 250 ML* 250 ML IVPB SCH (12:00)
--- NOTE | 2017-12-19 12:57 | RAD ---
Indication: Hospital-acquired pneumonia and CHF. Assess for potential PE. Comparison: December 19, 2017 chest radiograph and December 15, [address] Technique: Following administration of 8.950 mCi xenon-133 by inhalation anterior and posterior ventilation images were obtained. Following the administration of 6.500 mCi of Tc-99m macroaggregated albumin, perfusion images were obtained in multiple projections. Report: The ventilation pattern demonstrates bilateral air trapping. Negative for segmental or subsegmental perfusion defects. Multiple subsegmental perfusion defects are identified at both lungs with bilateral prominent apical peripheral wedge-shaped perfusion defects. IMPRESSION: Multiple predominant small subsegmental perfusion defects largely without matching ventilation defects concerning for potential peripheral pulmonary emboli. One of the dominant perfusion defects at the periphery of the RIGHT upper lobe corresponds with the ventilation defect and proportional consolidation on anatomic imaging consistent with pneumonia. Given magnitude of parenchymal abnormalities on chest radiograph of the same date specificity of the ventilation/perfusion exam is limited. Correlate with d-dimer and consider bilateral lower extremity venous Doppler and CT pulmonary angiogram if clinically feasible.
[2017-12-19] MEDS: Collagenase 250 MG/GM OINT* 30 GM TOPICAL SCH (13:11)
[2017-12-19] MEDS ORDERED: traMADol TAB* 50 MG PO PRN (16:44)
[2017-12-19] MEDS: Insulin GLARGINE(*) 1 UNITS UNIT SUBCUT SCH (21:32)
[2017-12-19] MEDS ORDERED: Bumetanide IV* 0.25 MG/ML 4 ML VIAL IV ONE (22:00)
[2017-12-19] MEDS ORDERED: Pantoprazole IV* 40 MG IV ONE (22:00)
[2017-12-19] MEDS ORDERED: Heparin VIAL(*) 5000 UNITS/ML VIAL (FIVE THOUSAND) IV SCH ×4 (22:00→23:00)
[2017-12-19 22:57] LABS: ABS Basophils 0 10^3/ul (0-0.2); ABS Eosinophils 0.1 10^3/ul (0-0.6); ABS Lymphocytes 0.5 10^3/ul (1.0-4.8); ABS Monocytes 0.4 10^3/ul (0-0.8); ABS Neutrophils 8.8 10^3/ul (1.5-7.7); ABS Nucleated RBC 0 10^3/ul; Hematocrit 26 % (42-52); Hemoglobin 9.1 g/dl (14.0-18.0); Lymphocyte % 4.7 % (25-47); Mean Corpuscular HGB Conc 35 g/dl (31-36); Mean Corpuscular Hemoglobin 29 pg (27-31); Mean Corpuscular Volume 84 fL (80-94); Mean Platelet Volume 7 um3 (7.4-10.4); Nucleated Red Blood Cells % 0; Platelet Count 170 10^3/ul (150-450); Red Cell Distribution Width 18 % (10.5-15); White Blood Count 9.8 10^3/ul (3.5-10.8)
[2017-12-19 23:07] LABS: EGFR Non-African American 31.3 (>60)
[2017-12-19] MEDS: Heparin DRIP 25,000 UNITS(*) 25,000 UNITS/500 ML BAG IVPB SCH (23:14)
[2017-12-20] MEDS: Collagenase 250 MG/GM OINT* 30 GM TOPICAL SCH ×2 (02:00→18:33)
[2017-12-20 05:52] LABS: ABS Basophils 0 10^3/ul (0-0.2); ABS Eosinophils 0.2 10^3/ul (0-0.6); ABS Lymphocytes 0.5 10^3/ul (1.0-4.8); ABS Monocytes 0.4 10^3/ul (0-0.8); ABS Neutrophils 7.6 10^3/ul (1.5-7.7); ABS Nucleated RBC 0 10^3/ul; Eosinophil % 1.9 % (0-6); Hematocrit 24 % (42-52); Hemoglobin 8.1 g/dl (14.0-18.0); Mean Corpuscular HGB Conc 34 g/dl (31-36); Mean Corpuscular Hemoglobin 29 pg (27-31); Mean Corpuscular Volume 86 fL (80-94); Mean Platelet Volume 7 um3 (7.4-10.4); Nucleated Red Blood Cells % 0; Platelet Count 132 10^3/ul (150-450); Red Blood Count 2.81 10^6/ul (4.0-5.4); Red Cell Distribution Width 19 % (10.5-15); White Blood Count 8.7 10^3/ul (3.5-10.8)
[2017-12-20] MEDS ORDERED: Vancomycin Random Level* NOTE FOLLOW UP PRN (06:00)
[2017-12-20 06:29] LABS: EGFR Non-African American 31.5 (>60)
--- NOTE | 2017-12-20 08:37 | PN ---
Subjective - Subjective Reason for Note: Progress Note History: We started him on heparin as a result of the V:Q scan. He denies any pain, but had dyspnea last night. This has not improved with a single IV infusion of furosemide. He remains weak, but is afebrile. He states he is not coughing/ bringing up any sputum. He is eating and drinking - his glucose levels have been around 200 mg/dl after increasing his lantus insulin by 2 units (a previous 10 unit increase caused hypoglycemia). Active Problems: Active Problems Acute combined systolic and diastolic congestive heart failure (Acute) I50.41 Anemia (Acute) D64.9 Fecal occult blood test positive (Acute) Macular erythematous rash (Acute) L53.8 Malnutrition (Acute) E46 Pleural effusion, bilateral (Acute) J90 Pneumonia involving right lung (Acute) J18.9 Pulmonary emboli (Acute) I26.99 Sacral decubitus ulcer, stage II (Acute) L89.152 Stage 3 chronic kidney disease (Acute) N18.3 Type 2 diabetes mellitus, uncontrolled (Acute) E11.65 Cardiac pacemaker (Chronic) Z95.0 Carotid stenosis (Chronic) I65.29 Cholesterol embolism (Chronic) [id number] Ecchymoses, spontaneous (Chronic) R23.3 Essential hypertension (Chronic) I10 History of cardiac arrest (Chronic) Z86.74 Hx of CABG (Chronic) Hyperlipidemia (Chronic) E78.5 Peripheral vascular disease (Chronic) I73.9 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.3599 Current Medications: Current Medications Acetaminophen (Tylenol Tab*) 650 mg PO Q4H PRN PRN Reason: FEVER/PAIN Al Hydrox/Mg Hydrox/Simethicone (Maalox Plus*) 30 ml PO Q6H PRN PRN Reason: INDIGESTION Amiodarone HCl (Cordarone Tab*) 200 mg PO DAILY [facility] Last Admin: 12/19/17 08:46 Dose: 200 mg Aspirin (Aspirin Ec Low Dose*) 81 mg PO DAILY [facility] Last Admin: 12/19/17 08:45 Dose: 81 mg Atorvastatin Calcium (Lipitor*) 20 mg PO DAILY [facility] Last Admin: 12/19/17 08:45 Dose: 20 mg Clopidogrel Bisulfate (Plavix Tab*) 75 mg PO DAILY [facility] Last Admin: 12/19/17 08:45 Dose: 75 mg Collagenase (Santyl 250 Mg/Gm Oint*) 1 applic TOPICAL DAILY [facility] Last Admin: 12/19/17 13:11 Dose: 1 applic Dextrose (D50w Syringe 50 Ml*) 12.5 gm IV PUSH .FOR FS < 60 - SS PRN PRN Reason: FS < 60 Last Admin: 12/16/17 06:19 Dose: 12.5 gm Heparin Sodium (Porcine) (Heparin Vial(*)) 0 units IV .PER PROTOCOL ISABELLE PRN Reason: Protocol Cefepime HCl (Maxipime 1 Gm In Dextrose Duplex (*)) 1 gm in 50 mls @ 100 mls/ hr IV Q12H [facility] Last Admin: 12/19/17 21:32 Dose: 100 mls/hr Heparin Sodium/Dextrose (Heparin Drip 25,000 Units(*)) 25,000 units in 500 mls @ 0 mls/hr IVPB PER RATE [facility]; Per Protocol PRN Reason: Protocol Last Admin: 12/19/17 23:14 Dose: 19 mls/hr Insulin Glargine (Lantus(*)) 14 units SUBCUT BEDTIME [facility] Last Admin: 12/19/17 21:32 Dose: 14 units Insulin Human Lispro (Humalog*) 0 units SUBCUT AC [facility] PRN Reason: Protocol Last Admin: 12/19/17 18:59 Dose: 2 unit Insulin Human Lispro (Humalog*) 0 units SUBCUT ACHS [facility] PRN Reason: Protocol Last Admin: 12/19/17 21:33 Dose: Not Given Metoprolol Succinate (Toprol Xl Tab*) 25 mg PO BID [facility] Last Admin: 12/19/17 21:33 Dose: 25 mg Pharmacy Consult (Vancomycin Per Pharmacy*) 1 note FOLLOW UP . PRN PRN Reason: PER PROTOCOL Pharmacy Consult (Vancomycin Random Level*) 1 note FOLLOW UP 0600 PRN PRN Reason: PER PROTOCOL Prednisone (Deltasone Tab*) 10 mg PO DAILY [facility] Last Admin: 12/19/17 08:46 Dose: 10 mg Tiotropium [place] (Spiriva Cap.Inh*) 1 cap INH DAILY [facility] Last Admin: 12/19/17 08:57 Dose: 1 cap Tramadol HCl (Ultram*) 25 mg PO Q4H PRN PRN Reason: PAIN- 30M BEFORE DRESSING [facility] Last Admin: 12/19/17 22:09 Dose: 25 mg Home Medications: Home Medications Medication Instructions Recorded Confirmed Type glipiZIDE TAB* [Glucotrol TAB*] 5 mg PO DAILY 02/03/14 12/13/17 History Insulin GLARGINE(*) [Lantus(*)] 10 units SUBCUT BEDTIME 11/10/17 12/13/17 History Amiodarone TAB* [Cordarone TAB*] 200 mg PO DAILY 12/13/17 12/13/17 History Aspirin EC Low Dose* [Ecotrin EC 81 mg PO DAILY 12/13/17 12/13/17 History Low Dose 81 MG*] Atorvastatin* [Lipitor*] 20 mg PO DAILY 12/13/17 12/13/17 History Clopidogrel TAB* [Plavix TAB*] 75 mg PO DAILY 12/13/17 12/13/17 History Insulin LISPRO* [HumaLOG*] 0 units SUBCUT TID AC 12/13/17 12/13/17 History Metoprolol Succinate XL TAB* 25 mg PO BID 12/13/17 12/13/17 History [Toprol XL TAB*] Tiotropium CAP.INH* [Spiriva 1 cap.inh INH DAILY 12/13/17 12/13/17 History CAP.INH*] Torsemide TAB* [Demadex*] 20 mg PO DAILY 12/13/17 12/13/17 History predniSONE TAB* [Deltasone TAB*] 5 mg PO DAILY 12/13/17 12/13/17 History Allergies: Allergies Allergy/AdvReac Type Severity Reaction Status Date / Time wheat Allergy Palpitation Verified 11/10/17 14:20 s Objective - Vital Signs Vital Signs: Vital Signs 12/19/17 12/19/17 12/19/17 08:57 15:38 20:52 Temperature 97.4 F 97.3 F Pulse Rate 81 76 78 Respiratory 20 16 24 Rate Blood Pressure 129/48 145/55 (mmHg) O2 Sat by Pulse 92 96 98 Oximetry 12/19/17 12/19/17 12/19/17 20:57 22:09 23:38 Temperature 97.3 F Pulse Rate 78 Respiratory 26 26 26 Rate Blood Pressure 145/55 (mmHg) O2 Sat by Pulse 98 Oximetry 12/19/17 12/20/17 12/20/17 23:45 01:05 03:43 Temperature 97.2 F 97.6 F Pulse Rate 73 66 Respiratory 18 22 20 Rate Blood Pressure 124/51 125/45 (mmHg) O2 Sat by Pulse 98 100 Oximetry 12/20/17 07:40 Temperature 97.7 F Pulse Rate 65 Respiratory 22 Rate Blood Pressure 130/46 (mmHg) O2 Sat by Pulse 98 Oximetry - Intake and Output Intake and Output: Intake & Output 12/17/17 12/18/17 12/19/17 12/20/17 11:59 11:59 11:59 11:59 Intake Total 505.2 1621 530 Output Total 367 749 0523 Balance -444.8 1401 -765 Weight 149 lb 9.6 oz 149 lb 9.6 oz 148 lb 12.8 oz Intake: IV Fluids 55.2 265 ABX - AZITHROMYCIN 250 ABX - CEFEPIME 55.2 NS (0.9%) 15 IVPB 250 170 50 ABX - CEFEPIME 170 50 ABX - VANCOMYCIN 250 Oral 200 895 480 Packed Cells 291 Output: Urine 291 185 0695 Other: Estimated Void Small # Bowel Movements 1 0 1 Estimated Stool Amount Small Medium # Voids 1 1 0 ADLs: Meal Record Start: 12/13/17 20: 48 Freq: DAILY@0900,1400,1800 Status: Active Protocol: Document 12/14/17 09:00 [id number] (Rec: 12/14/17 14:25 [id number] TELE-C09) Document 12/14/17 14:00 [id number] (Rec: 12/14/17 14:26 VDD5846 TELE-C09) Document 12/14/17 17:34 TST9302 (Rec: 12/14/17 17:34 ZXW4308 TELE-C05) Document 12/15/17 09:00 PZC3647 (Rec: 12/15/17 10:47 QNG4813 TELE-C07) Document 12/15/17 14:00 WRN9018 (Rec: 12/15/17 14:02 DLQ7729 TELE-C07) Document 12/15/17 18:00 NAL9916 (Rec: 12/15/17 18:38 FTR1607 TELE-C01) Document 12/16/17 09:00 OEU7870 (Rec: 12/16/17 19:21 NQO5631 TELE-C07) Document 12/16/17 14:00 BDY8287 (Rec: 12/16/17 19:24 DPN1998 TELE-C07) Document 12/17/17 09:00 BHQ8476 (Rec: 12/17/17 14:48 OMP4776 TELE-C01) Document 12/17/17 14:00 MQN1418 (Rec: 12/17/17 14:49 PJM1396 TELE-C01) Document 12/17/17 18:00 IRU5002 (Rec: 12/17/17 18:01 ZNM1463 TELE-C03) Document 12/18/17 11:04 PHA1311 (Rec: 12/18/17 11:04 TFM5545 TELE-C01) Document 12/18/17 13:17 UCC3472 (Rec: 12/18/17 13:18 KWA5653 TELE-C01) Document 12/18/17 18:00 OWX4227 (Rec: 12/18/17 21:43 UQV1235 TELE-C13) Document 12/19/17 09:00 PEO1290 (Rec: 12/19/17 10:41 HRH9819 TELE-C01) Document 12/19/17 14:00 PCV9338 (Rec: 12/19/17 15:58 QLZ5916 TELE-C01) Document 12/19/17 18:00 CAM5180 (Rec: 12/19/17 21:09 YAO0804 TELE-C09) Intake and Output Start: 12/13/17 20: 48 Freq: DAILY@0600,1400,2200 Status: Active Protocol: Document 12/14/17 05:52 WAZ9166 (Rec: 12/14/17 05:54 KYF2001 TELE-C33) Document 12/14/17 14:00 ZPG0043 (Rec: 12/14/17 14:26 QWV1366 TELE-C09) Document 12/14/17 22:00 VSL8240 (Rec: 12/14/17 22:20 BRX3202 TELE-C01) Document 12/15/17 05:15 VWL3049 (Rec: 12/15/17 05:16 PNQ5723 TELE-C34) Document 12/15/17 14:00 XLV9925 (Rec: 12/15/17 14:02 EDG9643 TELE-C07) Document 12/15/17 22:00 WIS8019 (Rec: 12/15/17 22:56 CXK9637 TELE-C08) Document 12/16/17 06:00 FOE7210 (Rec: 12/16/17 07:35 QDH2521 TELE-C03) Document 12/16/17 15:40 HLF2289 (Rec: 12/16/17 15:40 NBM4044 TELE-C08) Document 12/16/17 22:00 EPO0496 (Rec: 12/16/17 23:08 KTE7582 TELE-C01) Document 12/17/17 05:49 GUM1763 (Rec: 12/17/17 05:54 OJE3456 TELE-C33) Document 12/17/17 14:00 JTJ7921 (Rec: 12/17/17 14:49 ZWK8655 TELE-C01) Document 12/17/17 22:00 DIC5676 (Rec: 12/17/17 22:13 CTM2966 TELE-C13) Document 12/18/17 06:11 TAN9231 (Rec: 12/18/17 06:11 ELS3795 TELE-M06) Document 12/18/17 12:38 BVJ5766 (Rec: 12/18/17 12:38 BYO4563 TELE-C01) Document 12/18/17 17:30 HXP5093 (Rec: 12/18/17 20:02 STD0223 TELE-C07) Document 12/18/17 21:44 WTA9397 (Rec: 12/18/17 21:46 GAV9226 TELE-C13) Document 12/19/17 05:33 EEL2126 (Rec: 12/19/17 05:33 FJO3603 TELE-C34) Document 12/19/17 14:00 SIY4521 (Rec: 12/19/17 15:58 QFT9252 TELE-C01) Document 12/19/17 20:23 SRB9237 (Rec: 12/19/17 20:23 CMO2686 TELE-C07) Document 12/19/17 22:00 TMD7452 (Rec: 12/19/17 22:54 CIJ6930 TELE-C09) Document 12/20/17 06:00 VSR3149 (Rec: 12/20/17 06:41 RXX0739 TELE-C33) - Physical Exam General Physical Exam Comment: I examined the sacral decubitus ulcer, this is stage 3, above it is devitalized, black skin and around it are stage 2 ulcers. General: No Cyanosis, Yes Anemia, No Jaundice, No Clubbing Skin: Abnormal: Rash - No new skin lesions Lungs and Chest: Yes: Chest Expansion Full, Chest Expansion Symetrica, Respiratory Distress - states he feels dyspnea, Use of Accessory Muscles. No: Percussion Note Resonant - dull bases, Vessicular Breath Sounds - diminished, Crackles, Wheezes Heart Rate and Rhythm: Regular Additional Cardiovascular: Yes: Normal Heart Sounds. No: Heart Murmur, Pedal Edema Abdominal Exam: Yes: Soft, Bowel Sounds Present. No: Distention, Abdominal Tenderness Results - Results Lab Results: Laboratory Results - last 24 hr 12/16/17 12/16/17 12/16/17 15:10 15:10 15:10 WBC RBC Hgb Hct MCV MCH MCHC RDW Plt Count MPV Neut % (Auto) Lymph % (Auto) Aiken % (Auto) Eos % (Auto) Baso % (Auto) Absolute Neuts (auto) Absolute Lymphs (auto) Absolute Monos (auto) Absolute Eos (auto) Absolute Basos (auto) Absolute Nucleated RBC Nucleated RBC % APTT Sodium Potassium Chloride Carbon Dioxide Anion Gap BUN Creatinine Est GFR ( Amer) Est GFR (Non-Af Amer) BUN/Creatinine Ratio Glucose POC Glucose (mg/dL) Calcium Total Bilirubin Direct Bilirubin Indirect Bilirubin AST ALT Alkaline Phosphatase C-Reactive Protein Total Protein Albumin Globulin Albumin/Globulin Ratio Fluid Source Pleural Pleural Fluid Cell Count Rvw By Fluid Glucose 140 Fluid Total Protein 1.4 Fluid LDH Random Vancomycin 12/16/17 12/19/17 12/19/17 15:28 12:50 16:22 WBC RBC Hgb Hct MCV MCH MCHC RDW Plt Count MPV Neut % (Auto) Lymph % (Auto) Aiken % (Auto) Eos % (Auto) Baso % (Auto) Absolute Neuts (auto) Absolute Lymphs (auto) Absolute Monos (auto) Absolute Eos (auto) Absolute Basos (auto) Absolute Nucleated RBC Nucleated RBC % APTT Sodium Potassium Chloride Carbon Dioxide Anion Gap BUN Creatinine Est GFR ( Amer) Est GFR (Non-Af Amer) BUN/Creatinine Ratio Glucose POC Glucose (mg/dL) 209 H 201 H Calcium Total Bilirubin Direct Bilirubin Indirect Bilirubin AST ALT Alkaline Phosphatase C-Reactive Protein Total Protein Albumin Globulin Albumin/Globulin Ratio Fluid Source Pleural Fluid Cell Count Rvw By Fluid Glucose Fluid Total Protein Fluid LDH 261 Random Vancomycin 12/19/17 12/19/17 12/19/17 20:25 22:15 22:52 WBC RBC Hgb Hct MCV MCH MCHC RDW Plt Count MPV Neut % (Auto) Lymph % (Auto) Aiken % (Auto) Eos % (Auto) Baso % (Auto) Absolute Neuts (auto) Absolute Lymphs (auto) Absolute Monos (auto) Absolute Eos (auto) Absolute Basos (auto) Absolute Nucleated RBC Nucleated RBC % APTT 38.8 H Sodium Potassium Chloride Carbon Dioxide Anion Gap BUN 86 H Creatinine 2.06 H Est GFR ( Amer) 40.3 Est GFR (Non-Af Amer) 31.3 BUN/Creatinine Ratio Glucose POC Glucose (mg/dL) 209 H Calcium Total Bilirubin Direct Bilirubin Indirect Bilirubin AST ALT Alkaline Phosphatase C-Reactive Protein Total Protein Albumin Globulin Albumin/Globulin Ratio Fluid Source Fluid Cell Count Rvw By Fluid Glucose Fluid Total Protein Fluid LDH Random Vancomycin 12/19/17 12/20/17 12/20/17 22:52 05:37 05:37 WBC 9.8 8.7 RBC 3.10 L 2.81 L Hgb 9.1 L 8.1 L Hct 26 L 24 L MCV 84 86 MCH 29 29 MCHC 35 34 RDW 18 H 19 H Plt Count 170 132 L MPV 7 L 7 L Neut % (Auto) 89.8 H 86.9 H Lymph % (Auto) 4.7 L 6.0 L Aiken % (Auto) 4.4 4.9 Eos % (Auto) 1.0 1.9 Baso % (Auto) 0.1 0.3 Absolute Neuts (auto) 8.8 H 7.6 Absolute Lymphs (auto) 0.5 L 0.5 L Absolute Monos (auto) 0.4 0.4 Absolute Eos (auto) 0.1 0.2 Absolute Basos (auto) 0 0 Absolute Nucleated RBC 0 0 Nucleated RBC % 0 0 APTT Sodium 133 Potassium 4.4 Chloride 101 Carbon Dioxide 28 Anion Gap 4 BUN 87 H Creatinine 2.05 H Est GFR ( Amer) 40.5 Est GFR (Non-Af Amer) 31.5 BUN/Creatinine Ratio 42.4 H Glucose 198 H POC Glucose (mg/dL) Calcium 7.0 L Total Bilirubin 0.70 Direct Bilirubin 0.10 Indirect Bilirubin 0.6 AST 18 ALT 22 Alkaline Phosphatase 58 C-Reactive Protein 28.65 H Total Protein 3.0 L Albumin 1.1 L Globulin 1.9 L Albumin/Globulin Ratio 0.6 L Fluid Source Fluid Cell Count Rvw By Fluid Glucose Fluid Total Protein Fluid LDH Random Vancomycin 17.6 12/20/17 12/20/17 05:37 07:50 WBC RBC Hgb Hct MCV MCH MCHC RDW Plt Count MPV Neut % (Auto) Lymph % (Auto) Aiken % (Auto) Eos % (Auto) Baso % (Auto) Absolute Neuts (auto) Absolute Lymphs (auto) Absolute Monos (auto) Absolute Eos (auto) Absolute Basos (auto) Absolute Nucleated RBC Nucleated RBC % APTT 64.8 H Sodium Potassium Chloride Carbon Dioxide Anion Gap BUN Creatinine Est GFR ( Amer) Est GFR (Non-Af Amer) BUN/Creatinine Ratio Glucose POC Glucose (mg/dL) 203 H Calcium Total Bilirubin Direct Bilirubin Indirect Bilirubin AST ALT Alkaline Phosphatase C-Reactive Protein Total Protein Albumin Globulin Albumin/Globulin Ratio Fluid Source Fluid Cell Count Rvw By Fluid Glucose Fluid Total Protein Fluid LDH Random Vancomycin Radiology Results: Patient Name: NEIL HANSON Medical Record#: [id number] Ordering Physician: Trenton Muniz MD Acct.#: [id number] : 1940 Age: 77 Sex: M Location: [address] [place] [address]/TELEMETRY Exam Date: 12/19/17 0847 ADM Status: ADM IN Order Information: CHEST PA & LAT 2 VWS Accession Number: [id number] CPT: 19115 INDICATION: Congestive heart failure COMPARISON: Most recent comparison chest x-ray dated December 13, 2017 TECHNIQUE: PA and lateral views of the chest were obtained. FINDINGS: Again seen is a left upper chest cardiac pacer with 2 leads overlying the heart and sternotomy wires. There are patchy bilateral densities most severely overlying the right upper lobe. These are worse when compared to the previous chest x-ray. There is density obscuring the bilateral lung bases worse on the left than the right. Visualized bones are normal for the patient's age. There is no radiographic evidence of free air beneath the diaphragm IMPRESSION: OVERALL WORSENING AERATION INCLUDING LEFT LUNG PLEURAL EFFUSION WHEN COMPARED TO THE DECEMBER 13, 2017 CHEST X-RAY. THE PATCHY DENSITIES OVERLYING THE RIGHT LUNG COULD BE DUE TO WORSENING PULMONARY EDEMA OR PNEUMONIA DEPENDING ON THE PATIENT'S CLINICAL PRESENTATION. <Electronically signed by Max Bronson MD in [place]> 12/19/17 1033 Dictated By: Max Bronson MD Dictated Date/Time: 12/19/17 1033 Transcribed Date/Time: 12/19/17 1022 Copy to: CC:Trenton Muniz MD; Peter Lomeli MD; Mariella Laughlin DO; Micky Light MD; Yossi Vogel MD Imaging - [facility] Imaging - [place] [facility] Imaging - [facility] [address] [address] ph [phone]) ph [phone]) ph [phone]) 1 of 1 Patient Name: NEIL HANSON Medical Record#: [id number] Ordering Physician: Trenton Muniz MD Acct.#: [id number] : 1940 Age: 77 Sex: M Location: [address] [place] [address] MEDICAL/TELEMETRY Exam Date: 12/19/17 0848 ADM Status: ADM IN Order Information: NM LUNG PERFUSION W/VENTILATIO Accession Number: [id number] CPT: 09433 Indication: Hospital-acquired pneumonia and CHF. Assess for potential PE. Comparison: December 19, 2017 chest radiograph and December 15, [address] Technique: Following administration of 8.950 mCi xenon-133 by inhalation anterior and posterior ventilation images were obtained. Following the administration of 6.500 mCi of Tc-99m macroaggregated albumin, perfusion images were obtained in multiple projections. Report: The ventilation pattern demonstrates bilateral air trapping. Negative for segmental or subsegmental perfusion defects. Multiple subsegmental perfusion defects are identified at both lungs with bilateral prominent apical peripheral wedge-shaped perfusion defects. IMPRESSION: Multiple predominant small subsegmental perfusion defects largely without matching ventilation defects concerning for potential peripheral pulmonary emboli. One of the dominant perfusion defects at the periphery of the RIGHT upper lobe corresponds with the ventilation defect and proportional consolidation on anatomic imaging consistent with pneumonia. Given magnitude of parenchymal abnormalities on chest radiograph of the same date specificity of the ventilation/perfusion exam is limited. Correlate with d -dimer and consider bilateral lower extremity venous Doppler and CT pulmonary angiogram if clinically feasible. <Electronically signed by Anastacio Silver MD in [place]> 12/19/17 1253 Dictated By: Anastacio Silver MD Dictated Date/Time: 12/19/17 1253 Transcribed Date/Time: 12/19/17 1241 Copy to: CC:Trenton Muniz MD; Peetr Lomeli MD; Mariella Laughlin DO; Micky Light MD; Yossi Vogel MD Imaging - [facility] Imaging - [place] [facility] [address] [address] ph [phone]) ph ([phone]) ph ([phone]) 1 of 1 Assessment - Problem List Assessment: Patient Problems Acute combined systolic and diastolic congestive heart failure (Acute) Anemia (Acute) Fecal occult blood test positive (Acute) Macular erythematous rash (Acute) Malnutrition (Acute) Pleural effusion, bilateral (Acute) Pneumonia involving right lung (Acute) Pulmonary emboli (Acute) Sacral decubitus ulcer, stage II (Acute) Stage 3 chronic kidney disease (Acute) Type 2 diabetes mellitus, uncontrolled (Acute) Cardiac pacemaker (Chronic) Carotid stenosis (Chronic) Cholesterol embolism (Chronic) Ecchymoses, spontaneous (Chronic) Essential hypertension (Chronic) History of cardiac arrest (Chronic) Hx of CABG (Chronic) Hyperlipidemia (Chronic) Peripheral vascular disease (Chronic) 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 His % neutrophils are positive - but this may be due to prednisone. I have stopped 2/ 3 of his antibacterials. I would like his CRP further down before stopping the cefepime. Acute combined systolic and diastolic congestive heart failure (Acute) We remain with the dilemma that if we use more diuretics, he develop worsening renal failure. I will continue his diuretic therapy Pulmonary emboli (Acute)Cholesterol embolism (Chronic)Ecchymoses, spontaneous ( Chronic)The report of his V:Q scan suggests multiple small PEs. We cannot confirm this with a CTA because of his precarious renal function. We have anticoagulated him with heparin. He is fully informed of risks and benefits - the GI bleed is a concern. We will check a doppler of his legs - if this appears to be the source we can put in an IVC filter. However, I am concerned this may have been caused by cholesterol crystals - hence the peripheral distribution. Anemia (Acute)Fecal occult blood test positive (Acute) This is risky - we are following his CBC and have started him on a PPI. Macular erythematous rash (Acute) no change Malnutrition (Acute) This is a barrier to recovery - he is trying to eat and drink This is another factor worsening his respiratory function Sacral decubitus ulcer, stage II (Acute) This is stage 3 or even 4. I have given instructions to take his weight off this area Stage 3 chronic kidney disease (Acute) This remains a major barrier to management. I wonder if he also cholesterol embolized his kidneys. Type 2 diabetes mellitus, uncontrolled (Acute) I will increase lantus by another 2 units Cardiac pacemaker (Chronic) Carotid stenosis (Chronic) Essential hypertension (Chronic) BP on target I spoke to the patient - he continues to want acute medical care and agrees with the above. I spoke to his domestic partner Radha and she is fully aware of the situation. She has discussed mortality with Mr. Hanson.
[2017-12-20] MEDS: Tiotropium CAP.INH* CAP.INH/18 MCG (USE ORDER SET !) INH SCH (08:45)
[2017-12-20] MEDS: Cefepime 1 GM in Dextrose(*) 1 GM/50 ML BAG IV SCH ×2 (10:18→23:15)
[2017-12-20] MEDS: Insulin LISPRO* 1 UNITS UNIT SUBCUT SCH ×7 (10:50→23:32)
[2017-12-20] MEDS: Bumetanide IV* 0.25 MG/ML 4 ML VIAL SLOW PUSH SCH ×2 (10:50→23:11)
[2017-12-20] MEDS: Aspirin EC Low Dose* 81 MG TAB.EC PO SCH (10:51)
[2017-12-20] MEDS: Amiodarone TAB* 200 MG PO SCH (10:51)
[2017-12-20] MEDS: Clopidogrel TAB* 75 MG PO SCH (10:51)
[2017-12-20] MEDS: Atorvastatin* 20 MG TAB PO SCH (10:51)
[2017-12-20] MEDS: Metoprolol Succinate XL TAB* 25 MG PO SCH ×2 (10:51→23:09)
[2017-12-20] MEDS: predniSONE TAB* 20 MG PO SCH (10:51)
--- NOTE | 2017-12-20 11:29 | RAD ---
INDICATION: Potential peripheral pulmonary emboli on VQ scan of one day prior. Assess for DVT. COMPARISON: No relevant prior exams available on the [facility] PACS for comparison. TECHNIQUE: Esquivel scale, color Doppler, and spectral analysis of the deep veins of the BILATERAL lower extremities. Vessel compression, phasicity, and augmentation assessed. REPORT: Patent RIGHT common femoral vein. Echogenic chronic appearing thrombus at the RIGHT great saphenous vein extending to within 0.7 cm of the saphenous femoral junction. Patent RIGHT profunda femoral and proximal, mid, and distal segments of the femoral vein. Incompletely compressible RIGHT popliteal vein with chronic appearing nonocclusive marginal thrombus. Grossly patent paired RIGHT posterior tibial and peroneal calf veins. Patent LEFT common femoral vein and great saphenous vein at the saphenous femoral junction. The LEFT profunda femoral vein is incompletely compressible with nonocclusive hypoechoic thrombus. Patent proximal, mid, and distal segments of the LEFT femoral vein. The LEFT popliteal vein is incompletely compressible with marginal hyperechoic chronic appearing nonocclusive thrombus. Conspicuity of the LEFT calf veins is limited. Flow detected at the paired posterior tibial veins and one of the peroneal veins. IMPRESSION: 1. Chronic appearing thrombosis of the RIGHT great saphenous vein extending to within 0.7 cm of the saphenous femoral junction. 2. Chronic appearing nonocclusive thrombosis of the RIGHT popliteal vein. 3. Nonocclusive potentially acute thrombus at the LEFT profunda femoral vein. 4. Nonocclusive chronic appearing thrombus at the LEFT popliteal vein.
[2017-12-20] MEDS: Insulin GLARGINE(*) 1 UNITS UNIT SUBCUT SCH (23:07)
[2017-12-21 06:40] LABS: ABS Basophils 0 10^3/ul (0-0.2); ABS Eosinophils 0.3 10^3/ul (0-0.6); ABS Lymphocytes 0.8 10^3/ul (1.0-4.8); ABS Monocytes 0.7 10^3/ul (0-0.8); ABS Neutrophils 12.3 10^3/ul (1.5-7.7); ABS Nucleated RBC 0 10^3/ul; Eosinophil % 1.9 % (0-6); Hematocrit 29 % (42-52); Hemoglobin 9.9 g/dl (14.0-18.0); Lymphocyte % 5.7 % (25-47); Mean Corpuscular HGB Conc 34 g/dl (31-36); Mean Corpuscular Hemoglobin 29 pg (27-31); Mean Corpuscular Volume 84 fL (80-94); Mean Platelet Volume 7 um3 (7.4-10.4); Nucleated Red Blood Cells % 0; Platelet Count 153 10^3/ul (150-450); Red Blood Count 3.43 10^6/ul (4.0-5.4); Red Cell Distribution Width 17 % (10.5-15)
[2017-12-21 06:56] LABS: EGFR Non-African American 31.8 (>60)
[2017-12-21] MEDS: Insulin LISPRO* 1 UNITS UNIT SUBCUT SCH ×7 (07:32→22:20)
--- NOTE | 2017-12-21 08:20 | PN ---
Subjective - Subjective Reason for Note: Progress Note History: He remains weak. Yesterday, he declined PT as he was too tired. However, each day he states he is feeling better. He denies any pain, discomfort. This is despite sacral decubitus ulcers. He denies dyspnea, cough. He tolerated the transfusion yesterday. Active Problems: Active Problems Acute combined systolic and diastolic congestive heart failure (Acute) I50.41 Anemia (Acute) D64.9 DVT (deep venous thrombosis) (Acute) I82.409 Fecal occult blood test positive (Acute) Macular erythematous rash (Acute) L53.8 Malnutrition (Acute) E46 Pleural effusion, bilateral (Acute) J90 Pneumonia involving right lung (Acute) J18.9 Pulmonary emboli (Acute) I26.99 Stage 3 chronic kidney disease (Acute) N18.3 Stage III pressure ulcer of sacral region (Acute) L89.153 Type 2 diabetes mellitus, uncontrolled (Acute) E11.65 Cardiac pacemaker (Chronic) Z95.0 Carotid stenosis (Chronic) I65.29 Cholesterol embolism (Chronic) [id number] Ecchymoses, spontaneous (Chronic) R23.3 Essential hypertension (Chronic) I10 History of cardiac arrest (Chronic) Z86.74 Hx of CABG (Chronic) Hyperlipidemia (Chronic) E78.5 Peripheral vascular disease (Chronic) I73.9 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.3599 Current Medications: Current Medications Acetaminophen (Tylenol Tab*) 650 mg PO Q4H PRN PRN Reason: FEVER/PAIN Al Hydrox/Mg Hydrox/Simethicone (Maalox Plus*) 30 ml PO Q6H PRN PRN Reason: INDIGESTION Amiodarone HCl (Cordarone Tab*) 200 mg PO DAILY [facility] Last Admin: 12/20/17 10:51 Dose: 200 mg Aspirin (Aspirin Ec Low Dose*) 81 mg PO DAILY [facility] Last Admin: 12/20/17 10:51 Dose: 81 mg Atorvastatin Calcium (Lipitor*) 20 mg PO DAILY [facility] Last Admin: 12/20/17 10:51 Dose: 20 mg Bumetanide (Bumex*) 1 mg SLOW PUSH BID [facility] Last Admin: 12/20/17 23:11 Dose: 1 mg Clopidogrel Bisulfate (Plavix Tab*) 75 mg PO DAILY [facility] Last Admin: 12/20/17 10:51 Dose: 75 mg Collagenase (Santyl 250 Mg/Gm Oint*) 1 applic TOPICAL DAILY [facility] Last Admin: 12/20/17 18:33 Dose: 1 applic Dextrose (D50w Syringe 50 Ml*) 12.5 gm IV PUSH .FOR FS < 60 - SS PRN PRN Reason: FS < 60 Last Admin: 12/16/17 06:19 Dose: 12.5 gm Heparin Sodium (Porcine) (Heparin Vial(*)) 0 units IV .PER PROTOCOL ISABELLE PRN Reason: Protocol Cefepime HCl (Maxipime 1 Gm In Dextrose Duplex (*)) 1 gm in 50 mls @ 100 mls/ hr IV Q12H [facility] Last Admin: 12/20/17 23:15 Dose: 100 mls/hr Heparin Sodium/Dextrose (Heparin Drip 25,000 Units(*)) 25,000 units in 500 mls @ 0 mls/hr IVPB PER RATE [facility]; Per Protocol PRN Reason: Protocol Last Admin: 12/19/17 23:14 Dose: 19 mls/hr Insulin Glargine (Lantus(*)) 14 units SUBCUT BEDTIME [facility] Last Admin: 12/20/17 23:07 Dose: 14 units Insulin Human Lispro (Humalog*) 0 units SUBCUT AC [facility] PRN Reason: Protocol Last Admin: 12/21/17 07:32 Dose: Not Given Insulin Human Lispro (Humalog*) 0 units SUBCUT ACHS [facility] PRN Reason: Protocol Last Admin: 12/20/17 23:32 Dose: 1 unit Metoprolol Succinate (Toprol Xl Tab*) 25 mg PO BID [facility] Last Admin: 12/20/17 23:09 Dose: 25 mg Pharmacy Consult (Vancomycin Random Level*) 1 note FOLLOW UP 0600 PRN PRN Reason: PER PROTOCOL Prednisone (Deltasone Tab*) 10 mg PO DAILY [facility] Last Admin: 12/20/17 10:51 Dose: 10 mg Tiotropium Lorton (Spiriva Cap.Inh*) 1 cap INH DAILY [facility] Last Admin: 12/20/17 08:45 Dose: 1 cap Tramadol HCl (Ultram*) 25 mg PO Q4H PRN PRN Reason: PAIN- 30M BEFORE DRESSING [facility] Last Admin: 12/19/17 22:09 Dose: 25 mg Home Medications: Home Medications Medication Instructions Recorded Confirmed Type glipiZIDE TAB* [Glucotrol TAB*] 5 mg PO DAILY 02/03/14 12/13/17 History Insulin GLARGINE(*) [Lantus(*)] 10 units SUBCUT BEDTIME 11/10/17 12/13/17 History Amiodarone TAB* [Cordarone TAB*] 200 mg PO DAILY 12/13/17 12/13/17 History Aspirin EC Low Dose* [Ecotrin EC 81 mg PO DAILY 12/13/17 12/13/17 History Low Dose 81 MG*] Atorvastatin* [Lipitor*] 20 mg PO DAILY 12/13/17 12/13/17 History Clopidogrel TAB* [Plavix TAB*] 75 mg PO DAILY 12/13/17 12/13/17 History Insulin LISPRO* [HumaLOG*] 0 units SUBCUT TID AC 12/13/17 12/13/17 History Metoprolol Succinate XL TAB* 25 mg PO BID 12/13/17 12/13/17 History [Toprol XL TAB*] Tiotropium CAP.INH* [Spiriva 1 cap.inh INH DAILY 12/13/17 12/13/17 History CAP.INH*] Torsemide TAB* [Demadex*] 20 mg PO DAILY 12/13/17 12/13/17 History predniSONE TAB* [Deltasone TAB*] 5 mg PO DAILY 12/13/17 12/13/17 History Allergies: Allergies Allergy/AdvReac Type Severity Reaction Status Date / Time wheat Allergy Palpitation Verified 11/10/17 14:20 s Objective - Vital Signs Vital Signs: Vital Signs 12/20/17 12/20/17 12/20/17 08:49 11:03 15:34 Temperature 97.9 F 97.6 F Pulse Rate 84 74 65 Respiratory 16 22 20 Rate Blood Pressure 132/39 145/50 (mmHg) O2 Sat by Pulse 96 100 100 Oximetry 12/20/17 12/20/17 12/20/17 19:29 20:00 22:50 Temperature 98.0 F Pulse Rate 66 67 Respiratory 20 20 Rate Blood Pressure 131/46 147/45 (mmHg) O2 Sat by Pulse 100 96 Oximetry 12/20/17 12/21/17 12/21/17 23:27 03:47 07:30 Temperature 97.4 F 97.7 F Pulse Rate 63 66 Respiratory 16 16 16 Rate Blood Pressure 140/45 131/52 (mmHg) O2 Sat by Pulse 98 99 Oximetry 12/21/17 07:38 Temperature 96.3 F Pulse Rate 66 Respiratory 20 Rate Blood Pressure 113/41 (mmHg) O2 Sat by Pulse 100 Oximetry - Intake and Output Intake and Output: Intake & Output 12/18/17 12/19/17 12/20/17 12/21/17 11:59 11:59 11:59 11:59 Intake Total 505.2 1621 770 864 Output Total 115 471 9719 725 Balance -444.8 1401 -725 139 Weight 149 lb 9.6 oz 149 lb 9.6 oz 148 lb 12.8 oz 150 lb 4.8 oz Intake: IV Fluids 55.2 265 10 ABX - AZITHROMYCIN 250 ABX - CEFEPIME 55.2 10 NS (0.9%) 15 IVPB 250 170 50 50 ABX - CEFEPIME 170 50 50 ABX - VANCOMYCIN 250 Heparin 484 Oral 200 895 720 320 Packed Cells 291 Output: Urine 937 673 4737 725 Other: Estimated Void Small Small # Bowel Movements 1 0 1 0 Estimated Stool Amount Small Medium Small # Voids 1 1 0 1 ADLs: Meal Record Start: 12/13/17 20: 48 Freq: DAILY@0900,1400,1800 Status: Active Protocol: Document 12/14/17 09:00 [id number] (Rec: 12/14/17 14:25 JGJ7083 TELE-C09) Document 12/14/17 14:00 MPV2536 (Rec: 12/14/17 14:26 PPY8733 TELE-C09) Document 12/14/17 17:34 CQA4170 (Rec: 12/14/17 17:34 BTU0595 TELE-C05) Document 12/15/17 09:00 LCF4981 (Rec: 12/15/17 10:47 CER0469 TELE-C07) Document 12/15/17 14:00 AZV0478 (Rec: 12/15/17 14:02 ELL4457 TELE-C07) Document 12/15/17 18:00 PAN9268 (Rec: 12/15/17 18:38 KGI7547 TELE-C01) Document 12/16/17 09:00 LLH8152 (Rec: 12/16/17 19:21 WNH9654 TELE-C07) Document 12/16/17 14:00 SZB6778 (Rec: 12/16/17 19:24 ZDQ7036 TELE-C07) Document 12/17/17 09:00 TGZ4094 (Rec: 12/17/17 14:48 ORY9935 TELE-C01) Document 12/17/17 14:00 MWY9935 (Rec: 12/17/17 14:49 YBG5551 TELE-C01) Document 12/17/17 18:00 ORD5362 (Rec: 12/17/17 18:01 GYQ8232 TELE-C03) Document 12/18/17 11:04 CKA7124 (Rec: 12/18/17 11:04 NYZ3698 TELE-C01) Document 12/18/17 13:17 LWG8146 (Rec: 12/18/17 13:18 EOD2893 TELE-C01) Document 12/18/17 18:00 ENJ4886 (Rec: 12/18/17 21:43 HLD3912 TELE-C13) Document 12/19/17 09:00 QHT9484 (Rec: 12/19/17 10:41 ADC8390 TELE-C01) Document 12/19/17 14:00 YMO7436 (Rec: 12/19/17 15:58 ZBR9737 TELE-C01) Document 12/19/17 18:00 RWW8811 (Rec: 12/19/17 21:09 JWB1428 TELE-C09) Document 12/20/17 11:41 FWG8393 (Rec: 12/20/17 11:41 WKL7743 TELE-C01) Document 12/20/17 13:29 PJA4092 (Rec: 12/20/17 13:29 KGB5486 TELE-C01) Document 12/20/17 18:00 CCL3451 (Rec: 12/20/17 22:06 TCN0886 TELE-C01) Intake and Output Start: 12/13/17 20: 48 Freq: DAILY@0600,1400,2200 Status: Active Protocol: Document 12/14/17 05:52 JNY7298 (Rec: 12/14/17 05:54 CFF9294 TELE-C33) Document 12/14/17 14:00 GEB0598 (Rec: 12/14/17 14:26 WQO7188 TELE-C09) Document 12/14/17 22:00 SFI7975 (Rec: 12/14/17 22:20 JKS2694 TELE-C01) Document 12/15/17 05:15 ATM1509 (Rec: 12/15/17 05:16 CPY5290 TELE-C34) Document 12/15/17 14:00 ZPU2753 (Rec: 12/15/17 14:02 CVT8523 TELE-C07) Document 12/15/17 22:00 YYX5524 (Rec: 12/15/17 22:56 OGT1025 TELE-C08) Document 12/16/17 06:00 FSS6121 (Rec: 12/16/17 07:35 TMG7797 TELE-C03) Document 12/16/17 15:40 QIS8359 (Rec: 12/16/17 15:40 BTN6578 TELE-C08) Document 12/16/17 22:00 MZM0130 (Rec: 12/16/17 23:08 HUC9614 TELE-C01) Document 12/17/17 05:49 WVJ3381 (Rec: 12/17/17 05:54 NOB9420 TELE-C33) Document 12/17/17 14:00 AJZ1848 (Rec: 12/17/17 14:49 FKH6892 TELE-C01) Document 12/17/17 22:00 JYO1577 (Rec: 12/17/17 22:13 BMT2462 TELE-C13) Document 12/18/17 06:11 ETZ4642 (Rec: 12/18/17 06:11 GXC9125 TELE-M06) Document 12/18/17 12:38 VRX9230 (Rec: 12/18/17 12:38 DDW2634 TELE-C01) Document 12/18/17 17:30 CKI0082 (Rec: 12/18/17 20:02 UBE6563 TELE-C07) Document 12/18/17 21:44 LSX9559 (Rec: 12/18/17 21:46 NOR2653 TELE-C13) Document 12/19/17 05:33 QXS4136 (Rec: 12/19/17 05:33 VJT6671 TELE-C34) Document 12/19/17 14:00 MMY1030 (Rec: 12/19/17 15:58 VND1551 TELE-C01) Document 12/19/17 20:23 VKF1946 (Rec: 12/19/17 20:23 LMD6380 TELE-C07) Document 12/19/17 22:00 GQX3322 (Rec: 12/19/17 22:54 KIF0600 TELE-C09) Document 12/20/17 06:00 SEI2213 (Rec: 12/20/17 06:41 DIZ0260 TELE-C33) Document 12/20/17 12:08 QBS5941 (Rec: 12/20/17 12:08 UKK8719 TELE-C01) Document 12/20/17 16:26 QRX2824 (Rec: 12/20/17 16:26 YDJ3932 TELE-M04) Document 12/20/17 20:17 SHY0463 (Rec: 12/20/17 20:18 TGP0822 TELE-M14) Document 12/20/17 22:00 LLN5697 (Rec: 12/20/17 22:07 NDU8473 TELE-C01) Document 12/20/17 22:00 PNN5647 (Rec: 12/21/17 00:05 AEI5228 TELE-M07) Document 12/21/17 04:29 XZL1052 (Rec: 12/21/17 04:29 FPM8823 TELE-C34) - Physical Exam General: No Cyanosis, No Anemia, No Jaundice, No Clubbing Lungs and Chest: Yes: Chest Expansion Full, Chest Expansion Symetrica. No: Vessicular Breath Sounds - decreased at bases, Crackles, Wheezes, Respiratory Distress, Use of Accessory Muscles Heart Rate and Rhythm: Regular Additional Cardiovascular: Yes: Normal Heart Sounds. No: Heart Murmur, Pedal Edema - Edema of arms L>R Abdominal Exam: Yes: Distention - mild, Soft, Bowel Sounds Present. No: Abdominal Mass, Hepatomegaly, Abdominal Tenderness Results - Results Lab Results: Laboratory Results - last 24 hr 12/18/17 12/20/17 12/20/17 05:51 11:43 14:20 WBC RBC Hgb Hct MCV MCH MCHC RDW Plt Count MPV Neut % (Auto) Lymph % (Auto) Dodge % (Auto) Eos % (Auto) Baso % (Auto) Absolute Neuts (auto) Absolute Lymphs (auto) Absolute Monos (auto) Absolute Eos (auto) Absolute Basos (auto) Absolute Nucleated RBC Nucleated RBC % APTT 183.6 H* Sodium Potassium Chloride Carbon Dioxide Anion Gap BUN Creatinine Est GFR ( Amer) Est GFR (Non-Af Amer) BUN/Creatinine Ratio Glucose POC Glucose (mg/dL) 332 H Calcium C-Reactive Protein Blood Type A Negative Antibody Screen Negative Crossmatch See Detail 12/20/17 12/20/17 12/21/17 16:41 22:43 00:29 WBC RBC Hgb Hct MCV MCH MCHC RDW Plt Count MPV Neut % (Auto) Lymph % (Auto) Dodge % (Auto) Eos % (Auto) Baso % (Auto) Absolute Neuts (auto) Absolute Lymphs (auto) Absolute Monos (auto) Absolute Eos (auto) Absolute Basos (auto) Absolute Nucleated RBC Nucleated RBC % APTT 91.6 H Sodium Potassium Chloride Carbon Dioxide Anion Gap BUN Creatinine Est GFR ( Amer) Est GFR (Non-Af Amer) BUN/Creatinine Ratio Glucose POC Glucose (mg/dL) 200 H 176 H Calcium C-Reactive Protein Blood Type Antibody Screen Crossmatch 12/21/17 12/21/17 12/21/17 06:33 06:33 06:33 WBC 14.0 H RBC 3.43 L Hgb 9.9 L Hct 29 L MCV 84 MCH 29 MCHC 34 RDW 17 H Plt Count 153 MPV 7 L Neut % (Auto) 87.5 H Lymph % (Auto) 5.7 L Dodge % (Auto) 4.7 Eos % (Auto) 1.9 Baso % (Auto) 0.2 Absolute Neuts (auto) 12.3 H Absolute Lymphs (auto) 0.8 L Absolute Monos (auto) 0.7 Absolute Eos (auto) 0.3 Absolute Basos (auto) 0 Absolute Nucleated RBC 0 Nucleated RBC % 0 APTT 75.1 H Sodium 134 Potassium 4.3 Chloride 98 L Carbon Dioxide 31 Anion Gap 5 BUN 86 H Creatinine 2.03 H Est GFR ( Amer) 40.9 Est GFR (Non-Af Amer) 31.8 BUN/Creatinine Ratio 42.4 H Glucose 82 POC Glucose (mg/dL) Calcium 8.2 L C-Reactive Protein 44.68 H Blood Type Antibody Screen Crossmatch 12/21/17 07:27 WBC RBC Hgb Hct MCV MCH MCHC RDW Plt Count MPV Neut % (Auto) Lymph % (Auto) Dodge % (Auto) Eos % (Auto) Baso % (Auto) Absolute Neuts (auto) Absolute Lymphs (auto) Absolute Monos (auto) Absolute Eos (auto) Absolute Basos (auto) Absolute Nucleated RBC Nucleated RBC % APTT Sodium Potassium Chloride Carbon Dioxide Anion Gap BUN Creatinine Est GFR ( Amer) Est GFR (Non-Af Amer) BUN/Creatinine Ratio Glucose POC Glucose (mg/dL) 99 Calcium C-Reactive Protein Blood Type Antibody Screen Crossmatch Radiology Results: Patient Name: NEIL PAULA Medical Record#: [id number] Ordering Physician: Natasha Alas MD Acct.#: [id number] : 1940 Age: 77 Sex: M Location: [address] [place] [address]/TELEMETRY Exam Date: 12/20/17 0700 ADM Status: ADM IN Order Information: VL LOWER EXT VEINS BILATERAL Accession Number: [id number] CPT: 13510 INDICATION: Potential peripheral pulmonary emboli on VQ scan of one day prior. Assess for DVT. COMPARISON: No relevant prior exams available on the [facility] PACS for comparison. TECHNIQUE: Esquivel scale, color Doppler, and spectral analysis of the deep veins of the BILATERAL lower extremities. Vessel compression, phasicity, and augmentation assessed. REPORT: Patent RIGHT common femoral vein. Echogenic chronic appearing thrombus at the RIGHT great saphenous vein extending to within 0.7 cm of the saphenous femoral junction. Patent RIGHT profunda femoral and proximal, mid, and distal segments of the femoral vein. Incompletely compressible RIGHT popliteal vein with chronic appearing nonocclusive marginal thrombus. Grossly patent paired RIGHT posterior tibial and peroneal calf veins. Patent LEFT common femoral vein and great saphenous vein at the saphenous femoral junction. The LEFT profunda femoral vein is incompletely compressible with nonocclusive hypoechoic thrombus. Patent proximal, mid, and distal segments of the LEFT femoral vein. The LEFT popliteal vein is incompletely compressible with marginal hyperechoic chronic appearing nonocclusive thrombus. Conspicuity of the LEFT calf veins is limited. Flow detected at the paired posterior tibial veins and one of the peroneal veins. IMPRESSION: 1. Chronic appearing thrombosis of the RIGHT great saphenous vein extending to within 0.7 cm of the saphenous femoral junction. 2. Chronic appearing nonocclusive thrombosis of the RIGHT popliteal vein. 3. Nonocclusive potentially acute thrombus at the LEFT profunda femoral vein. 4. Nonocclusive chronic appearing thrombus at the LEFT popliteal vein. <Electronically signed by Anastacio Silver MD in [place]> 12/20/17 1125 Dictated By: Anastacio Silver MD Dictated Date/Time: 12/20/17 1125 Transcribed Date/Time: 12/20/17 1118 Copy to: CC:Trenton Muniz MD; Natasha Alas MD; Peter Lomeli MD; Mariella Laughlin DO; Micky Light MD; Yossi Vogel MD Imaging - [facility] Imaging - [facility] Urgent [facility] [place] [address] [address] ph [phone]) ph [phone]) ph ([phone]) 1 of 1 Assessment - Problem List Assessment: Patient Problems Acute combined systolic and diastolic congestive heart failure (Acute) Anemia (Acute) DVT (deep venous thrombosis) (Acute) Fecal occult blood test positive (Acute) Macular erythematous rash (Acute) Malnutrition (Acute) Pleural effusion, bilateral (Acute) Pneumonia involving right lung (Acute) Pulmonary emboli (Acute) Stage 3 chronic kidney disease (Acute) Stage III pressure ulcer of sacral region (Acute) Type 2 diabetes mellitus, uncontrolled (Acute) Cardiac pacemaker (Chronic) Carotid stenosis (Chronic) Cholesterol embolism (Chronic) Ecchymoses, spontaneous (Chronic) Essential hypertension (Chronic) History of cardiac arrest (Chronic) Hx of CABG (Chronic) Hyperlipidemia (Chronic) Peripheral vascular disease (Chronic) 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 He has been on cefepime alone for 1 day. His CRP and WBC climbed a little - likely related to transfusion or other issues (prednisone). I don't think his clinical condition is primarily driven by pneumonia/infection at present. Acute combined systolic and diastolic congestive heart failure (Acute) He has ongoing edema of his arms. It is unclear to what extent heart failure is contributing to the multifactorial respiratory failure. He has a high BNP and a CXR that can be interpreted in differing ways - infectious consolidation vs pulmonary edema Anemia (Acute) He tolerated the transfusion and his Hgb is adequate again. I will follow this while he is on anticoagulation in view of the threat of hemorrhage. DVT (deep venous thrombosis) (Acute) Pulmonary emboli (Acute)Cholesterol embolism (Chronic) He has extensive DVTs. Whether these are the source of the peripheral small PEs seen on the V:Q scan, or this was a shower of cholesterol jt emboli, I am not certain. However, we have the dilemma as to whether to continue anticoagulation or whether to place a filter in a sick, debilitated patient. Fecal occult blood test positive (Acute) I will continue to test Macular erythematous rash (Acute) not a problem at present Malnutrition (Acute) He thinks he is eating adequately, but is not objectively doing as well as he believes. I will have a dietitian re-evaluate Pleural effusion, bilateral (Acute) These are ongoing Sacral decubitus ulcer, stage 3 (Acute) His poor nutrition and difficulty with optimal positioning is a bad combination. I have encouraged nursing to turn frequently/offload sacrum Stage 3 chronic kidney disease (Acute) This is ongoing Type 2 diabetes mellitus, uncontrolled (Acute) His FS are coming down. I will drop his lantus 2 units Cardiac pacemaker (Chronic) Carotid stenosis (Chronic) Ecchymoses, spontaneous (Chronic) no more appearing Essential hypertension (Chronic) This is running lower, I think this may relate to aggressive diuresis He has full capacity and wishes to continue with current medical approach. He denies any pain or discomfort - he is stoic. Unfortunately, with such a multifactorial set of problems it is difficult to come up with simple solutions that will turn around his clinical state which continues with is poor nutrition and immobility to be a decline.
[2017-12-21] MEDS: Tiotropium CAP.INH* CAP.INH/18 MCG (USE ORDER SET !) INH SCH (08:51)
[2017-12-21] MEDS: Cefepime 1 GM in Dextrose(*) 1 GM/50 ML BAG IV SCH ×2 (09:03→22:29)
[2017-12-21] MEDS: predniSONE TAB* 20 MG PO SCH (09:03)
[2017-12-21] MEDS: Clopidogrel TAB* 75 MG PO SCH (09:03)
[2017-12-21] MEDS: Metoprolol Succinate XL TAB* 25 MG PO SCH ×2 (09:03→22:22)
[2017-12-21] MEDS: Atorvastatin* 20 MG TAB PO SCH (09:03)
[2017-12-21] MEDS: Amiodarone TAB* 200 MG PO SCH (09:04)
[2017-12-21] MEDS: Aspirin EC Low Dose* 81 MG TAB.EC PO SCH (09:04)
[2017-12-21] MEDS: Bumetanide IV* 0.25 MG/ML 4 ML VIAL SLOW PUSH SCH (09:05)
[2017-12-21] MEDS: Collagenase 250 MG/GM OINT* 30 GM TOPICAL SCH (09:14)
[2017-12-21] MEDS: Heparin DRIP 25,000 UNITS(*) 25,000 UNITS/500 ML BAG IVPB SCH (09:17)
[2017-12-21] MEDS ORDERED: NS 0.9% 250 ML* 250 ML IVPB ONE (14:00)
[2017-12-21] MEDS: Insulin GLARGINE(*) 1 UNITS UNIT SUBCUT SCH (22:20)
[2017-12-22 06:20] LABS: ABS Basophils 0 10^3/ul (0-0.2); ABS Eosinophils 0.1 10^3/ul (0-0.6); ABS Monocytes 0.7 10^3/ul (0-0.8); ABS Nucleated RBC 0 10^3/ul; Eosinophil % 0.9 % (0-6); Hematocrit 21 % (42-52); Hemoglobin 7.1 g/dl (14.0-18.0); Lymphocyte % 6.2 % (25-47); Mean Corpuscular HGB Conc 34 g/dl (31-36); Mean Corpuscular Hemoglobin 29 pg (27-31); Mean Corpuscular Volume 85 fL (80-94); Mean Platelet Volume 7 um3 (7.4-10.4); Nucleated Red Blood Cells % 0; Platelet Count 154 10^3/ul (150-450); Red Blood Count 2.48 10^6/ul (4.0-5.4); Red Cell Distribution Width 17 % (10.5-15); White Blood Count 15.9 10^3/ul (3.5-10.8)
[2017-12-22] MEDS: Tiotropium CAP.INH* CAP.INH/18 MCG (USE ORDER SET !) INH SCH (07:50)
[2017-12-22] MEDS: Insulin LISPRO* 1 UNITS UNIT SUBCUT SCH ×7 (07:55→21:52)
--- NOTE | 2017-12-22 08:47 | PN ---
Subjective - Subjective Reason for Note: Progress Note History: He is looking dispirited today and is not talking about feeling better. He is weak and his appetite went yesterday - he was unable to eat significantly. He has some minor abdominal discomfort. He does not describe chest pain. I heparinized him because of the DVT and PEs and he became hypotensive, so I stopped the heparin and gave him a saline bolus. His glucose has improved control. He has had poor input and output. Active Problems: Active Problems Acute combined systolic and diastolic congestive heart failure (Acute) I50.41 Anemia (Acute) D64.9 DVT (deep venous thrombosis) (Acute) I82.409 Fecal occult blood test positive (Acute) Macular erythematous rash (Acute) L53.8 Malnutrition (Acute) E46 Pleural effusion, bilateral (Acute) J90 Pneumonia involving right lung (Acute) J18.9 Pulmonary emboli (Acute) I26.99 Stage 3 chronic kidney disease (Acute) N18.3 Stage III pressure ulcer of sacral region (Acute) L89.153 Type 2 diabetes mellitus, uncontrolled (Acute) E11.65 Cardiac pacemaker (Chronic) Z95.0 Carotid stenosis (Chronic) I65.29 Cholesterol embolism (Chronic) 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 Ecchymoses, spontaneous (Chronic) R23.3 Essential hypertension (Chronic) I10 History of cardiac arrest (Chronic) Z86.74 Hx of CABG (Chronic) Hyperlipidemia (Chronic) E78.5 Peripheral vascular disease (Chronic) I73.9 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.3599 Current Medications: Current Medications Acetaminophen (Tylenol Tab*) 650 mg PO Q4H PRN PRN Reason: FEVER/PAIN Last Admin: 12/21/17 09:17 Dose: 650 mg Al Hydrox/Mg Hydrox/Simethicone (Maalox Plus*) 30 ml PO Q6H PRN PRN Reason: INDIGESTION Amiodarone HCl (Cordarone Tab*) 200 mg PO DAILY [facility] Last Admin: 12/21/17 09:04 Dose: 200 mg Aspirin (Aspirin Ec Low Dose*) 81 mg PO DAILY [facility] Last Admin: 12/21/17 09:04 Dose: 81 mg Atorvastatin Calcium (Lipitor*) 20 mg PO DAILY [facility] Last Admin: 12/21/17 09:03 Dose: 20 mg Bumetanide (Bumex*) 1 mg SLOW PUSH DAILY [facility] Last Admin: 12/21/17 09:05 Dose: 1 mg Clopidogrel Bisulfate (Plavix Tab*) 75 mg PO DAILY [facility] Last Admin: 12/21/17 09:03 Dose: 75 mg Collagenase (Santyl 250 Mg/Gm Oint*) 1 applic TOPICAL DAILY [facility] Last Admin: 12/21/17 09:14 Dose: 1 applic Dextrose (D50w Syringe 50 Ml*) 12.5 gm IV PUSH .FOR FS < 60 - SS PRN PRN Reason: FS < 60 Last Admin: 12/16/17 06:19 Dose: 12.5 gm Cefepime HCl (Maxipime 1 Gm In Dextrose Duplex (*)) 1 gm in 50 mls @ 100 mls/ hr IV Q12H [facility] Last Admin: 12/21/17 22:29 Dose: 100 mls/hr Insulin Glargine (Lantus(*)) 12 units SUBCUT BEDTIME [facility] Last Admin: 12/21/17 22:20 Dose: 12 units Insulin Human Lispro (Humalog*) 0 units SUBCUT AC [facility] PRN Reason: Protocol Last Admin: 12/22/17 07:55 Dose: Not Given Insulin Human Lispro (Humalog*) 0 units SUBCUT ACHS [facility] PRN Reason: Protocol Last Admin: 12/21/17 22:20 Dose: Not Given Metoprolol Succinate (Toprol Xl Tab*) 25 mg PO BID [facility] Last Admin: 12/21/17 22:22 Dose: 25 mg Prednisone (Deltasone Tab*) 10 mg PO DAILY [facility] Last Admin: 12/21/17 09:03 Dose: 10 mg Tiotropium [place] (Spiriva Cap.Inh*) 1 cap INH DAILY [facility] Last Admin: 12/22/17 07:50 Dose: 1 cap Tramadol HCl (Ultram*) 25 mg PO Q4H PRN PRN Reason: PAIN- 30M BEFORE DRESSING CH Last Admin: 12/19/17 22:09 Dose: 25 mg Home Medications: Home Medications Medication Instructions Recorded Confirmed Type glipiZIDE TAB* [Glucotrol TAB*] 5 mg PO DAILY 02/03/14 12/13/17 History Insulin GLARGINE(*) [Lantus(*)] 10 units SUBCUT BEDTIME 11/10/17 12/13/17 History Amiodarone TAB* [Cordarone TAB*] 200 mg PO DAILY 12/13/17 12/13/17 History Aspirin EC Low Dose* [Ecotrin EC 81 mg PO DAILY 12/13/17 12/13/17 History Low Dose 81 MG*] Atorvastatin* [Lipitor*] 20 mg PO DAILY 12/13/17 12/13/17 History Clopidogrel TAB* [Plavix TAB*] 75 mg PO DAILY 12/13/17 12/13/17 History Insulin LISPRO* [HumaLOG*] 0 units SUBCUT TID AC 12/13/17 12/13/17 History Metoprolol Succinate XL TAB* 25 mg PO BID 12/13/17 12/13/17 History [Toprol XL TAB*] Tiotropium CAP.INH* [Spiriva 1 cap.inh INH DAILY 12/13/17 12/13/17 History CAP.INH*] Torsemide TAB* [Demadex*] 20 mg PO DAILY 12/13/17 12/13/17 History predniSONE TAB* [Deltasone TAB*] 5 mg PO DAILY 12/13/17 12/13/17 History Allergies: Allergies Allergy/AdvReac Type Severity Reaction Status Date / Time wheat Allergy Palpitation Verified 11/10/17 14:20 s Objective - Vital Signs Vital Signs: Vital Signs 12/21/17 12/21/17 12/21/17 09:09 11:28 12:38 Temperature 96.7 F Pulse Rate 66 69 Respiratory 20 24 Rate Blood Pressure 94/38 88/48 (mmHg) O2 Sat by Pulse 96 98 Oximetry 12/21/17 12/21/17 12/21/17 14:14 15:08 19:39 Temperature 97.7 F 97.5 F 97.4 F Pulse Rate 70 71 80 Respiratory 20 20 16 Rate Blood Pressure 87/43 105/40 114/44 (mmHg) O2 Sat by Pulse 97 97 96 Oximetry 12/21/17 12/21/17 12/21/17 20:00 22:18 23:19 Temperature 98.4 F Pulse Rate 73 73 Respiratory 16 16 Rate Blood Pressure 108/43 106/37 (mmHg) O2 Sat by Pulse 98 Oximetry 12/22/17 12/22/17 07:47 07:51 Temperature Pulse Rate 73 Respiratory 20 22 Rate Blood Pressure (mmHg) O2 Sat by Pulse 97 Oximetry - Intake and Output Intake and Output: Intake & Output 12/19/17 12/20/17 12/21/17 12/22/17 11:59 11:59 11:59 11:59 Intake Total 1621 770 864 450 Output Total 220 1495 725 150 Balance 1401 -725 139 300 Weight 149 lb 9.6 oz 148 lb 12.8 oz 150 lb 4.8 oz 149 lb 6.4 oz Intake: IV Fluids 265 10 270 ABX - AZITHROMYCIN 250 ABX - CEFEPIME 10 20 NS (0.9%) 15 250 IVPB 170 50 50 60 ABX - CEFEPIME 170 50 50 60 Heparin 484 Oral 895 720 320 120 Packed Cells 291 Output: Urine 220 1495 725 150 Other: Estimated Void Small Small Small # Bowel Movements 0 1 0 0 Estimated Stool Amount Medium Small Small # Voids 1 0 1 1 ADLs: Meal Record Start: 12/13/17 20: 48 Freq: DAILY@0900,1400,1800 Status: Active Protocol: Document 12/14/17 09:00 [id number] (Rec: 12/14/17 14:25 [id number] TELE-C09) Document 12/14/17 14:00 PXK8120 (Rec: 12/14/17 14:26 FOA3497 TELE-C09) Document 12/14/17 17:34 HIE2692 (Rec: 12/14/17 17:34 BBJ4894 TELE-C05) Document 12/15/17 09:00 LXQ3189 (Rec: 12/15/17 10:47 MEK6148 TELE-C07) Document 12/15/17 14:00 QRM3020 (Rec: 12/15/17 14:02 FCU5646 TELE-C07) Document 12/15/17 18:00 QPG2258 (Rec: 12/15/17 18:38 EME2567 TELE-C01) Document 12/16/17 09:00 HAT3062 (Rec: 12/16/17 19:21 ZOM4891 TELE-C07) Document 12/16/17 14:00 GIM4680 (Rec: 12/16/17 19:24 VVD0759 TELE-C07) Document 12/17/17 09:00 FDH0256 (Rec: 12/17/17 14:48 PHT3807 TELE-C01) Document 12/17/17 14:00 STB7189 (Rec: 12/17/17 14:49 ABQ4473 TELE-C01) Document 12/17/17 18:00 SVZ0049 (Rec: 12/17/17 18:01 NJZ5989 TELE-C03) Document 12/18/17 11:04 QRB9222 (Rec: 12/18/17 11:04 MND5390 TELE-C01) Document 12/18/17 13:17 HZC4143 (Rec: 12/18/17 13:18 VLW0964 TELE-C01) Document 12/18/17 18:00 SMI6870 (Rec: 12/18/17 21:43 HCQ7561 TELE-C13) Document 12/19/17 09:00 PAE3507 (Rec: 12/19/17 10:41 RJD5603 TELE-C01) Document 12/19/17 14:00 YEE1434 (Rec: 12/19/17 15:58 COB6615 TELE-C01) Document 12/19/17 18:00 WKC1970 (Rec: 12/19/17 21:09 XPA0984 TELE-C09) Document 12/20/17 11:41 FJA7863 (Rec: 12/20/17 11:41 OKN4845 TELE-C01) Document 12/20/17 13:29 DKJ0352 (Rec: 12/20/17 13:29 YUO4116 TELE-C01) Document 12/20/17 18:00 UGH6244 (Rec: 12/20/17 22:06 IYJ4795 TELE-C01) Document 12/21/17 09:00 DBP5880 (Rec: 12/21/17 14:02 DAB7406 TELE-C13) Document 12/21/17 14:00 GGB5731 (Rec: 12/21/17 14:04 YNX8635 TELE-C13) Document 12/21/17 18:00 MPL9187 (Rec: 12/21/17 22:20 PVD3124 TELE-C06) Intake and Output Start: 12/13/17 20: 48 Freq: DAILY@0600,1400,2200 Status: Active Protocol: Document 12/14/17 05:52 IMZ5402 (Rec: 12/14/17 05:54 YPJ6932 TELE-C33) Document 12/14/17 14:00 RZA7105 (Rec: 12/14/17 14:26 WIP5296 TELE-C09) Document 12/14/17 22:00 VQB4435 (Rec: 12/14/17 22:20 DVK6931 TELE-C01) Document 12/15/17 05:15 BTB0189 (Rec: 12/15/17 05:16 PRO7464 TELE-C34) Document 12/15/17 14:00 AEL7040 (Rec: 12/15/17 14:02 HID8423 TELE-C07) Document 12/15/17 22:00 CDW2292 (Rec: 12/15/17 22:56 FBD7719 TELE-C08) Document 12/16/17 06:00 FGP8168 (Rec: 12/16/17 07:35 SOW3428 TELE-C03) Document 12/16/17 15:40 YEH4065 (Rec: 12/16/17 15:40 PTE8316 TELE-C08) Document 12/16/17 22:00 ZTV4442 (Rec: 12/16/17 23:08 AUX4961 TELE-C01) Document 12/17/17 05:49 UZT8258 (Rec: 12/17/17 05:54 YTI3901 TELE-C33) Document 12/17/17 14:00 FXC8201 (Rec: 12/17/17 14:49 NYP1955 TELE-C01) Document 12/17/17 22:00 UZI4017 (Rec: 12/17/17 22:13 BZL1362 TELE-C13) Document 12/18/17 06:11 IHN8461 (Rec: 12/18/17 06:11 VIW6914 TELE-M06) Document 12/18/17 12:38 RCZ5439 (Rec: 12/18/17 12:38 MJN4488 TELE-C01) Document 12/18/17 17:30 AKH5167 (Rec: 12/18/17 20:02 OYC3685 TELE-C07) Document 12/18/17 21:44 IUM7108 (Rec: 12/18/17 21:46 MJB1980 TELE-C13) Document 12/19/17 05:33 JVG1171 (Rec: 12/19/17 05:33 VGC7470 TELE-C34) Document 12/19/17 14:00 HJX2647 (Rec: 12/19/17 15:58 HVG7052 TELE-C01) Document 12/19/17 20:23 NHI5599 (Rec: 12/19/17 20:23 SLJ6911 TELE-C07) Document 12/19/17 22:00 FXH4223 (Rec: 12/19/17 22:54 SMV9774 TELE-C09) Document 12/20/17 06:00 ZOS9743 (Rec: 12/20/17 06:41 FFD2512 TELE-C33) Document 12/20/17 12:08 TYH1594 (Rec: 12/20/17 12:08 YTQ9127 TELE-C01) Document 12/20/17 16:26 DHB1846 (Rec: 12/20/17 16:26 VWZ7524 TELE-M04) Document 12/20/17 20:17 PID4148 (Rec: 12/20/17 20:18 XKD1248 TELE-M14) Document 12/20/17 22:00 NYA0262 (Rec: 12/20/17 22:07 GIO8871 TELE-C01) Document 12/20/17 22:00 MNE1762 (Rec: 12/21/17 00:05 DKM3936 TELE-M07) Document 12/21/17 04:29 EAW3053 (Rec: 12/21/17 04:29 HYO6078 TELE-C34) Document 12/21/17 14:00 TWU5340 (Rec: 12/21/17 14:04 RIB0091 TELE-C13) Document 12/21/17 22:00 HRO2373 (Rec: 12/21/17 22:21 TMS6531 TELE-C06) Document 12/22/17 06:00 BJT4772 (Rec: 12/22/17 07:11 YYG9290 TELE-C34) - Physical Exam General Physical Exam Comment: He is weaker today. He continues to have the same skin lesions. He is cool at the extremeties General: No Cyanosis, Yes Anemia, No Jaundice, No Clubbing Lungs and Chest: Yes: Chest Expansion Full, Chest Expansion Symetrica. No: Percussion Note Resonant, Vessicular Breath Sounds - diminished, Crackles, Wheezes, Respiratory Distress, Use of Accessory Muscles Heart Rate and Rhythm: Regular Additional Cardiovascular: Yes: Normal Heart Sounds. No: Heart Murmur, Pedal Edema Abdominal Exam: Yes: Soft, Bowel Sounds Present. No: Distention, Abdominal Tenderness Results - Results Lab Results: Laboratory Results - last 24 hr 12/21/17 12/21/17 12/21/17 11:40 12:58 17:14 WBC RBC Hgb Hct MCV MCH MCHC RDW Plt Count MPV Neut % (Auto) Lymph % (Auto) [place] % (Auto) Eos % (Auto) Baso % (Auto) Absolute Neuts (auto) Absolute Lymphs (auto) Absolute Monos (auto) Absolute Eos (auto) Absolute Basos (auto) Absolute Nucleated RBC Nucleated RBC % APTT 49.5 H Sodium Potassium Chloride Carbon Dioxide Anion Gap BUN Creatinine Est GFR ( Amer) Est GFR (Non-Af Amer) BUN/Creatinine Ratio Glucose POC Glucose (mg/dL) 122 H 182 H Calcium C-Reactive Protein 12/21/17 12/22/17 12/22/17 21:52 06:04 06:04 WBC 15.9 H RBC 2.48 L Hgb 7.1 L Hct 21 L MCV 85 MCH 29 MCHC 34 RDW 17 H Plt Count 154 MPV 7 L Neut % (Auto) 88.1 H Lymph % (Auto) 6.2 L [place] % (Auto) 4.6 Eos % (Auto) 0.9 Baso % (Auto) 0.2 Absolute Neuts (auto) 14.0 H Absolute Lymphs (auto) 1.0 Absolute Monos (auto) 0.7 Absolute Eos (auto) 0.1 Absolute Basos (auto) 0 Absolute Nucleated RBC 0 Nucleated RBC % 0 APTT Sodium 135 Potassium 4.5 Chloride 99 L Carbon Dioxide 31 Anion Gap 5 BUN 94 H Creatinine 2.27 H Est GFR ( Amer) 36.0 Est GFR (Non-Af Amer) 28.0 BUN/Creatinine Ratio 41.4 H Glucose 122 H POC Glucose (mg/dL) 223 H Calcium 8.2 L C-Reactive Protein 49.50 H 12/22/17 07:37 WBC RBC Hgb Hct MCV MCH MCHC RDW Plt Count MPV Neut % (Auto) Lymph % (Auto) [place] % (Auto) Eos % (Auto) Baso % (Auto) Absolute Neuts (auto) Absolute Lymphs (auto) Absolute Monos (auto) Absolute Eos (auto) Absolute Basos (auto) Absolute Nucleated RBC Nucleated RBC % APTT Sodium Potassium Chloride Carbon Dioxide Anion Gap BUN Creatinine Est GFR ( Amer) Est GFR (Non-Af Amer) BUN/Creatinine Ratio Glucose POC Glucose (mg/dL) 112 H Calcium C-Reactive Protein Assessment - Problem List Assessment: Patient Problems Acute combined systolic and diastolic congestive heart failure (Acute) Anemia (Acute) DVT (deep venous thrombosis) (Acute) Fecal occult blood test positive (Acute) Macular erythematous rash (Acute) Malnutrition (Acute) Pleural effusion, bilateral (Acute) Pneumonia involving right lung (Acute) Pulmonary emboli (Acute) Stage 3 chronic kidney disease (Acute) Stage III pressure ulcer of sacral region (Acute) Type 2 diabetes mellitus, uncontrolled (Acute) Cardiac pacemaker (Chronic) Carotid stenosis (Chronic) Cholesterol embolism (Chronic) Ecchymoses, spontaneous (Chronic) Essential hypertension (Chronic) History of cardiac arrest (Chronic) Hx of CABG (Chronic) Hyperlipidemia (Chronic) Peripheral vascular disease (Chronic) 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 Cholesterol embolism (Chronic)Pulmonary emboli (Acute) Ecchymoses, spontaneous (Chronic) I reviewed his imaging with radiology. The appearance of the lungs is similar to that seen with cholesterol emboli - however, this would have to be due to paradoxical emboli as his showering is systemic. None of the emboli are segmental/subsegmental - they are all smaller, giving a mottled appearance to the VQ scan. I discussed this with cardiology - it is more likely this is due to atypical pattern from DVT than from paradoxical cholesterol emboli. Cholesterol crystal embolization may have occurred during cross-clamping of the aorta during CABG, but the time line is wrong. This occurred acutely on 11/27/2017 according to the discharge summary from [facility] and was thought to be due to coumadin and/or heparin. During that stay he had a thoracentesis for a bloody pleural effusion and also a pericardial effusion - both of which remain present. Choleterol crystal embolization has a poor prognosis as it affects many organs - particularly the kidneys. Fecal occult blood test positive (Acute) He likely is having a GI bleed - I will transfuse him. He will remain on PPIs. I think he is too debilitated for an EGD at present. Macular erythematous rash (Acute) not an active problem Malnutrition (Acute) ongoing problem Pleural effusion, bilateral (Acute) This is a bloody effusion and has been present since his hospitalization at [facility] Stage 3 chronic kidney disease (Acute) This has worsened due to hypovolemia/ poor IV intake Stage III pressure ulcer of sacral region (Acute) ongoing Type 2 diabetes mellitus, uncontrolled (Acute) improved control Cardiac pacemaker (Chronic) functioning Carotid stenosis (Chronic) Essential hypertension (Chronic) He is hypotensive/hypovolemic this morning History of cardiac arrest (Chronic) Hx of CABG (Chronic) Hyperlipidemia (Chronic) treated He has not responded to acute medical management and is declining. I think he is dying, but he is unable to grasp this. Today, for the first time, he has accepted a palliative care consultation. I will refer him for this. However, he is not yet ready for a DNR order. I think comfort care is the most appropriate management plan at present with his multiple comorbidities and poor response to acute medical therapy. I have spoken to Dr. Sandra Saleh in detail about his status and who will consult for palliative care. I called Radha Palmer and told her the above.
[2017-12-22] MEDS: Collagenase 250 MG/GM OINT* 30 GM TOPICAL SCH ×3 (08:55→22:03)
[2017-12-22] MEDS: Bumetanide IV* 0.25 MG/ML 4 ML VIAL SLOW PUSH SCH (08:56)
[2017-12-22] MEDS: predniSONE TAB* 20 MG PO SCH (09:02)
[2017-12-22] MEDS: Atorvastatin* 20 MG TAB PO SCH (09:02)
[2017-12-22] MEDS: Cefepime 1 GM in Dextrose(*) 1 GM/50 ML BAG IV SCH (09:02)
[2017-12-22] MEDS: Clopidogrel TAB* 75 MG PO SCH (09:02)
[2017-12-22] MEDS: Amiodarone TAB* 200 MG PO SCH (09:02)
[2017-12-22] MEDS: Aspirin EC Low Dose* 81 MG TAB.EC PO SCH (09:02)
[2017-12-22] MEDS: Metoprolol Succinate XL TAB* 25 MG PO SCH ×2 (09:02→22:01)
--- NOTE | 2017-12-22 13:04 | CONSULT ---
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 He has a history of thrombocytosis , HTN, HLD DM2, PVD, SSS with pacemaker, hx rheumatic fever, CHF, PAF on amiodarone, carotid endarterectomy, and chronic renal failure, now stage 3. He was transferred after his [address] [facility] hospitalization to [facility], but developed severe dyspnea and was brought to the ER where he was found to have RUL infiltrate c/w hospital acquired pneumonia, pleural effusions, and vascular congestion. Thoracentesis 12/16 revealed serosanguinous effusion. VQ scan 12/19 revealed multiple peripheral pulmonary emboli with appearance of cholesterol emboli but possibly atypical emboli arising from multiple left and right LE DVTs. Nutritional status has been failing with poor po intake, albumin falling from 2.5 to 1.1, prealbumin of 9, and he has a non-healing large coccyx decubitus. ECHO on 12/13 showed septal (post-op) hypokinesis, EF of 45-50%, mild LVH and pulmonary HTN. Attempted anticoagulation for his DVTs and PEs led to OB + stools with a drop in Hb from 9.9 to 7.1, so he is being transfused. His fluid status has been precarious as well, as diuresis has led to worsening renal function. Dr. Muniz has repeatedly suggested palliative measures for this patient but the patient apparently equated this idea with giving up hope for recovery, and refused. Today he agrees to a palliative consultation. Lab Values: Abnormal Lab Results 12/22/17 12/22/17 12/22/17 06:04 06:04 06:04 WBC 15.9 H RBC 2.48 L Hgb 7.1 L Hct 21 L MCV 85 MCH 29 MCHC 34 RDW 17 H Plt Count 154 MPV 7 L Neut % (Auto) 88.1 H Lymph % (Auto) 6.2 L Gaston % (Auto) 4.6 Eos % (Auto) 0.9 Baso % (Auto) 0.2 Absolute Neuts (auto) 14.0 H Absolute Lymphs (auto) 1.0 Absolute Monos (auto) 0.7 Absolute Eos (auto) 0.1 Absolute Basos (auto) 0 Absolute Nucleated RBC 0 Nucleated RBC % 0 APTT Sodium 135 Potassium 4.5 Chloride 99 L Carbon Dioxide 31 Anion Gap 5 BUN 94 H Creatinine 2.27 H Est GFR ( Amer) 36.0 Est GFR (Non-Af Amer) 28.0 BUN/Creatinine Ratio 41.4 H Glucose 122 H POC Glucose (mg/dL) Calcium 8.2 L C-Reactive Protein 49.50 H Blood Type A Negative Antibody Screen Negative Crossmatch See Detail Laboratory Last Values WBC 15.9 10^3/ul (3.5-10.8) H 12/22/17 06:04 RBC 2.48 10^6/ul (4.0-5.4) L 12/22/17 06:04 RBC (Retic) 2.83 10^6/ul (4.6-6.2) L 12/18/17 05:51 Hgb 7.1 g/dl (14.0-18.0) L 12/22/17 06:04 Hct 21 % (42-52) L 12/22/17 06:04 HCT (Retic) 24 % (42-52) L 12/18/17 05:51 MCV 85 fL (80-94) 12/22/17 06:04 MCH 29 pg (27-31) 12/22/17 06:04 MCHC 34 g/dl (31-36) 12/22/17 06:04 RDW 17 % (10.5-15) H 12/22/17 06:04 Plt Count 154 10^3/ul (150-450) 12/22/17 06:04 MPV 7 um3 (7.4-10.4) L 12/22/17 06:04 Neut % (Auto) 88.1 % (38-83) H 12/22/17 06:04 Lymph % (Auto) 6.2 % (25-47) L 12/22/17 06:04 Gaston % (Auto) 4.6 % (0-7) 12/22/17 06:04 Eos % (Auto) 0.9 % (0-6) 12/22/17 06:04 Baso % (Auto) 0.2 % (0-2) 12/22/17 06:04 Absolute Neuts (auto) 14.0 10^3/ul (1.5-7.7) H 12/22/17 06:04 Absolute Lymphs (auto) 1.0 10^3/ul (1.0-4.8) 12/22/17 06:04 Absolute Monos (auto) 0.7 10^3/ul (0-0.8) 12/22/17 06:04 Absolute Eos (auto) 0.1 10^3/ul (0-0.6) 12/22/17 06:04 Absolute Basos (auto) 0 10^3/ul (0-0.2) 12/22/17 06:04 Absolute Nucleated RBC 0 10^3/ul 12/22/17 06:04 Nucleated RBC % 0 12/22/17 06:04 ESR 30 mm/Hr (0-40) 12/18/17 05:51 Retic Count, Calc 1.3 % (0.5-1.5) 12/18/17 05:51 Corrected Retic Count 0.7 % (0.5-1.5) 12/18/17 05:51 Retic Shift Factor 2.0 12/18/17 05:51 Retic Production Index 0.40 12/18/17 05:51 Immature Retic Fraction 0.42 12/18/17 05:51 Mean Retic Volume 116.0 12/18/17 05:51 INR (Anticoag Therapy) 1.04 (0.77-1.02) H 12/13/17 15:25 APTT 49.5 seconds (26.0-36.3) H 12/21/17 12:58 Sodium 135 mmol/L (133-145) 12/22/17 06:04 Potassium 4.5 mmol/L (3.5-5.0) 12/22/17 06:04 Chloride 99 mmol/L (101-111) L 12/22/17 06:04 Carbon Dioxide 31 mmol/L (22-32) 12/22/17 06:04 Anion Gap 5 mmol/L (2-11) 12/22/17 06:04 BUN 94 mg/dL (6-24) H 12/22/17 06:04 Creatinine 2.27 mg/dL (0.67-1.17) H 12/22/17 06:04 Est GFR ( Amer) 36.0 (>60) 12/22/17 06:04 Est GFR (Non-Af Amer) 28.0 (>60) 12/22/17 06:04 BUN/Creatinine Ratio 41.4 (8-20) H 12/22/17 06:04 Glucose 122 mg/dL (70-100) H 12/22/17 06:04 POC Glucose (mg/dL) 178 mg/dL (70-100) H 12/22/17 11:28 Calcium 8.2 mg/dL (8.6-10.3) L 12/22/17 06:04 Magnesium 2.0 mg/dL (1.9-2.7) 12/14/17 00:00 Iron 60 ug/dL (50-212) 12/18/17 08:36 TIBC 174 mcg/dL (250-450) L 12/18/17 08:36 % Saturation 34 % (15-55) 12/18/17 08:36 Unsat Iron Binding 114 ug/dL 12/18/17 08:36 Transferrin 124 mg/dL (203-362) L 12/18/17 08:36 Total Bilirubin 0.70 mg/dL (0.2-1.0) 12/20/17 05:37 Direct Bilirubin 0.10 mg/dL (0.03-0.18) 12/20/17 05:37 Indirect Bilirubin 0.6 mg/dL (0.3-1.0) 12/20/17 05:37 AST 18 U/L (13-39) 12/20/17 05:37 ALT 22 U/L (7-52) 12/20/17 05:37 Alkaline Phosphatase 58 U/L (34-104) 12/20/17 05:37 Total Creatine Kinase 28 U/L (10-223) 12/13/17 15:25 CK-MB (CK-2) 7.1 ng/mL (0.6-6.3) H 12/13/17 15:25 Troponin I 0.03 ng/mL (<0.04) 12/14/17 09:32 C-Reactive Protein 49.50 mg/L (< 5.00) H 12/22/17 06:04 B-Natriuretic Peptide 1302 pg/mL (-100) H 12/18/17 05:51 Total Protein 3.0 g/dL (6.4-8.9) L 12/20/17 05:37 Albumin 1.1 g/dL (3.2-5.2) L 12/20/17 05:37 Globulin 1.9 g/dL (2-4) L 12/20/17 05:37 Albumin/Globulin Ratio 0.6 (1-3) L 12/20/17 05:37 Prealbumin 9 mg/dL (18-38) L 12/17/17 18:41 Vitamin B12 504 pg/mL (180-914) 12/17/17 18:41 25-OH Vitamin D Total 7.1 ng/mL (20-50) L 12/17/17 18:41 Procalcitonin 0.2 ng/mL (<0.6) 12/13/17 15:25 TSH 1.57 mcIU/mL (0.34-5.60) 12/17/17 18:41 Cortisol 24.27 mcg/dL 12/16/17 06:05 Urine Color Yellow 12/13/17 17:38 Urine Appearance Clear 12/13/17 17:38 Urine pH 5.0 (5-9) 12/13/17 17:38 Ur Specific Maria Stein 1.010 (1.010-1.030) 12/13/17 17:38 Urine Protein Negative (Negative) 12/13/17 17:38 Urine Ketones Negative (Negative) 12/13/17 17:38 Urine Blood 2+ (Negative) A 12/13/17 17:38 Urine Nitrate Negative (Negative) 12/13/17 17:38 Urine Bilirubin Negative (Negative) 12/13/17 17:38 Urine Urobilinogen Negative (Negative) 12/13/17 17:38 Ur Leukocyte Esterase Trace (Negative) A 12/13/17 17:38 Urine WBC (Auto) 1+(6-10/hpf) (Absent) A 12/13/17 17:38 Urine RBC (Auto) 2+(6-10/hpf) (Absent) A 12/13/17 17:38 Urine Bacteria Absent (Absent) 12/13/17 17:38 Hyaline Casts Present (Absent) A 12/13/17 17:38 Ur Random Creatinine 36.96 mg/dL 12/15/17 11:30 Ur Random Sodium 50 mmol/L 12/15/17 11:30 Renal Sodium Excretion 1.64 % 12/15/17 11:30 Urine Glucose Negative (Negative) 12/13/17 17:38 Fluid Source Pleural 12/16/17 15:28 Fluid Volume Not Reportable 12/16/17 15:10 Fluid Color Red 12/16/17 15:10 Fluid Appearance Bloody 12/16/17 15:10 Fluid WBC 525 /mcL (0-581765) 12/16/17 15:10 Fluid RBC 174479 /mcL 12/16/17 15:10 Fluid Tot Cell Count 100 12/16/17 15:10 Fluid Neutrophils 25 % 12/16/17 15:10 Fluid Lymphocytes 50 % 12/16/17 15:10 Fluid Monocytes 25 % 12/16/17 15:10 Fluid Cell Count Rvw By 12/16/17 15:10 Fluid Glucose 140 mg/dL 12/16/17 15:10 Fluid Total Protein 1.4 g/dL 12/16/17 15:10 Fluid LDH 261 U/L 12/16/17 15:28 Vancomycin Trough 27.2 mcg/mL 12/18/17 08:36 Random Vancomycin 17.6 mcg/mL 12/20/17 05:37 Influenza A (Rapid) Negative (Negative) 12/13/17 17:12 Influenza B (Rapid) Negative (Negative) 12/13/17 17:12 Blood Type A Negative 12/22/17 06:04 Antibody Screen Negative 12/22/17 06:04 Crossmatch See Detail 12/22/17 06:04 - Objective Active Medications: Acetaminophen (Tylenol Tab*) 650 mg PO Q4H PRN PRN Reason: FEVER/PAIN Last Admin: 12/21/17 09:17 Dose: 650 mg Al Hydrox/Mg Hydrox/Simethicone (Maalox Plus*) 30 ml PO Q6H PRN PRN Reason: INDIGESTION Amiodarone HCl (Cordarone Tab*) 200 mg PO DAILY [facility] Last Admin: 12/22/17 09:02 Dose: 200 mg Aspirin (Aspirin Ec Low Dose*) 81 mg PO DAILY [facility] Last Admin: 12/22/17 09:02 Dose: 81 mg Atorvastatin Calcium (Lipitor*) 20 mg PO DAILY [facility] Last Admin: 12/22/17 09:02 Dose: 20 mg Clopidogrel Bisulfate (Plavix Tab*) 75 mg PO DAILY [facility] Last Admin: 12/22/17 09:02 Dose: 75 mg Collagenase (Santyl 250 Mg/Gm Oint*) 1 applic TOPICAL DAILY [facility] Last Admin: 12/22/17 08:55 Dose: Not Given Dextrose (D50w Syringe 50 Ml*) 12.5 gm IV PUSH .FOR FS < 60 - SS PRN PRN Reason: FS < 60 Last Admin: 12/16/17 06:19 Dose: 12.5 gm Cefepime HCl (Maxipime 1 Gm In Dextrose Duplex (*)) 1 gm in 50 mls @ 100 mls/ hr IV Q12H [facility] Last Admin: 12/22/17 09:02 Dose: 100 mls/hr Insulin Glargine (Lantus(*)) 12 units SUBCUT BEDTIME [facility] Last Admin: 12/21/17 22:20 Dose: 12 units Insulin Human Lispro (Humalog*) 0 units SUBCUT AC ISABELLE PRN Reason: Protocol Last Admin: 12/22/17 07:55 Dose: Not Given Insulin Human Lispro (Humalog*) 0 units SUBCUT ACHS [facility] PRN Reason: Protocol Last Admin: 12/22/17 09:35 Dose: 1 unit Metoprolol Succinate (Toprol Xl Tab*) 25 mg PO BID [facility] Last Admin: 12/22/17 09:02 Dose: 25 mg Prednisone (Deltasone Tab*) 10 mg PO DAILY [facility] Last Admin: 12/22/17 09:02 Dose: 10 mg Tiotropium [place] (Spiriva Cap.Inh*) 1 cap INH DAILY [facility] Last Admin: 12/22/17 07:50 Dose: 1 cap Tramadol HCl (Ultram*) 25 mg PO Q4H PRN PRN Reason: PAIN- 30M BEFORE DRESSING CHNG Last Admin: 12/19/17 22:09 Dose: 25 mg Vital Signs: Vital Signs: Temp Pulse Resp BP Pulse Ox 97.3 F 70 16 104/35 96 12/22/17 07:52 12/22/17 07:52 12/22/17 07:52 12/22/17 07:52 12/22/17 07:52 Patient Weight: Weight 149 lb 6.4 oz Intake and Output: Intake & Output 12/20/17 12/21/17 12/22/17 12/23/17 06:59 06:59 06:59 06:59 Intake Total 855 1104 450 296 Output Total 1095 1125 150 Balance -240 -21 300 296 Weight 148 lb 12.8 oz 150 lb 4.8 oz 149 lb 6.4 oz Intake: IV Fluids 15 10 270 17 ABX - CEFEPIME 10 20 NS (0.9%) 15 250 17 IVPB 120 50 60 59 ABX - CEFEPIME 120 50 60 59 Heparin 484 Oral 720 560 120 220 Output: Urine 1095 1125 150 Other: Estimated Void Small Small # Bowel Movements 1 0 0 Estimated Stool Amount Medium Small Small # Voids 0 1 1 ADLs: Meal Record Start: 12/13/17 20: 48 Freq: DAILY@0900,1400,1800 Status: Active Protocol: Document 12/14/17 09:00 [id number] (Rec: 12/14/17 14:25 [id number] TELE-C09) Document 12/14/17 14:00 MUZ2781 (Rec: 12/14/17 14:26 TTL3199 TELE-C09) Document 12/14/17 17:34 WYI7089 (Rec: 12/14/17 17:34 SUF8855 TELE-C05) Document 12/15/17 09:00 VRG9825 (Rec: 12/15/17 10:47 OLX2089 TELE-C07) Document 12/15/17 14:00 UMV9408 (Rec: 12/15/17 14:02 PZB4859 TELE-C07) Document 12/15/17 18:00 PAI6371 (Rec: 12/15/17 18:38 BJU0254 TELE-C01) Document 12/16/17 09:00 RZL4903 (Rec: 12/16/17 19:21 QYI7328 TELE-C07) Document 12/16/17 14:00 XQZ8785 (Rec: 12/16/17 19:24 BET1905 TELE-C07) Document 12/17/17 09:00 HGC5455 (Rec: 12/17/17 14:48 ADZ1765 TELE-C01) Document 12/17/17 14:00 OQV7239 (Rec: 12/17/17 14:49 EPT6169 TELE-C01) Document 12/17/17 18:00 FOW9489 (Rec: 12/17/17 18:01 ILV0079 TELE-C03) Document 12/18/17 11:04 KGI0292 (Rec: 12/18/17 11:04 PPX4397 TELE-C01) Document 12/18/17 13:17 AQR4742 (Rec: 12/18/17 13:18 MRJ0790 TELE-C01) Document 12/18/17 18:00 SWF8114 (Rec: 12/18/17 21:43 QYF5513 TELE-C13) Document 12/19/17 09:00 NXS8727 (Rec: 12/19/17 10:41 XPG1046 TELE-C01) Document 12/19/17 14:00 PSQ1081 (Rec: 12/19/17 15:58 GKI4083 TELE-C01) Document 12/19/17 18:00 SVY9609 (Rec: 12/19/17 21:09 GAX6361 TELE-C09) Document 12/20/17 11:41 OES4340 (Rec: 12/20/17 11:41 JCQ9968 TELE-C01) Document 12/20/17 13:29 TJV4784 (Rec: 12/20/17 13:29 UOC8743 TELE-C01) Document 12/20/17 18:00 BQU9261 (Rec: 12/20/17 22:06 JQL5247 TELE-C01) Document 12/21/17 09:00 PVO3199 (Rec: 12/21/17 14:02 PLI8674 TELE-C13) Document 12/21/17 14:00 ZSR3304 (Rec: 12/21/17 14:04 IQH2503 TELE-C13) Document 12/21/17 18:00 TTQ5545 (Rec: 12/21/17 22:20 HLC9178 TELE-C06) Document 12/22/17 09:00 OXF1061 (Rec: 12/22/17 12:00 UQJ4110 TELE-C13) Intake and Output Start: 12/13/17 20: 48 Freq: DAILY@0600,1400,2200 Status: Active Protocol: Document 12/14/17 05:52 FFN0866 (Rec: 12/14/17 05:54 CJN2089 TELE-C33) Document 12/14/17 14:00 SKM8677 (Rec: 12/14/17 14:26 AND1365 TELE-C09) Document 12/14/17 22:00 JRP0118 (Rec: 12/14/17 22:20 CMT8932 TELE-C01) Document 12/15/17 05:15 NET1811 (Rec: 12/15/17 05:16 DQX5203 TELE-C34) Document 12/15/17 14:00 VML6345 (Rec: 12/15/17 14:02 JEJ0946 TELE-C07) Document 12/15/17 22:00 PFN9883 (Rec: 12/15/17 22:56 KIR5712 TELE-C08) Document 12/16/17 06:00 QJQ5320 (Rec: 12/16/17 07:35 CGD7826 TELE-C03) Document 12/16/17 15:40 WGL3985 (Rec: 12/16/17 15:40 WTX8043 TELE-C08) Document 12/16/17 22:00 VPX6318 (Rec: 12/16/17 23:08 TZF5880 TELE-C01) Document 12/17/17 05:49 VPC2214 (Rec: 12/17/17 05:54 JNW1270 TELE-C33) Document 12/17/17 14:00 NEV3996 (Rec: 12/17/17 14:49 FJA3292 TELE-C01) Document 12/17/17 22:00 YEC9919 (Rec: 12/17/17 22:13 ZJA0348 TELE-C13) Document 12/18/17 06:11 XCR2766 (Rec: 12/18/17 06:11 UCQ2114 TELE-M06) Document 12/18/17 12:38 YQR9760 (Rec: 12/18/17 12:38 SOE9541 TELE-C01) Document 12/18/17 17:30 LQC2225 (Rec: 12/18/17 20:02 ADK6601 TELE-C07) Document 12/18/17 21:44 VMF0659 (Rec: 12/18/17 21:46 WNA1719 TELE-C13) Document 12/19/17 05:33 YUS3037 (Rec: 12/19/17 05:33 YSP0003 TELE-C34) Document 12/19/17 14:00 YAD0713 (Rec: 12/19/17 15:58 VNG6167 TELE-C01) Document 12/19/17 20:23 HVG7993 (Rec: 12/19/17 20:23 ESF6496 TELE-C07) Document 12/19/17 22:00 LNT4047 (Rec: 12/19/17 22:54 UHF9516 TELE-C09) Document 12/20/17 06:00 KLW2625 (Rec: 12/20/17 06:41 IBA1746 TELE-C33) Document 12/20/17 12:08 IXC2337 (Rec: 12/20/17 12:08 WDR0337 TELE-C01) Document 12/20/17 16:26 ZEF3128 (Rec: 12/20/17 16:26 KQH5596 TELE-M04) Document 12/20/17 20:17 RQC4967 (Rec: 12/20/17 20:18 EDU5578 TELE-M14) Document 12/20/17 22:00 UHF9956 (Rec: 12/20/17 22:07 FBC2629 TELE-C01) Document 12/20/17 22:00 DKP8946 (Rec: 12/21/17 00:05 RRJ3926 TELE-M07) Document 12/21/17 04:29 UGU6602 (Rec: 12/21/17 04:29 IIV9776 TELE-C34) Document 12/21/17 14:00 ARN8633 (Rec: 12/21/17 14:04 TVE7058 TELE-C13) Document 12/21/17 22:00 LLR0057 (Rec: 12/21/17 22:21 HTP9628 TELE-C06) Document 12/22/17 06:00 WNB5880 (Rec: 12/22/17 07:11 QUM5986 TELE-C34) General Impression: Pale, fatigued man trying to maintain semi-upright posture in bed, drifting off frequently during conversation, with labored breathing. Head: Symmetrical Eyes: No Scleral Icterus, - - very pale conjunctivae Ears/Nose/Mouth/Throat: Clear Oropharnyx Neck: Trachea Midline, No Thyroid Enlargement, Masses Cardiovascular: NL Sounds; No Murmurs; No JVD, - Respiratory: Symmetrical Chest Expansion and Respiratory Effort - BS, bilateral basilar rales Abdominal: NL Sounds; No Tenderness; No Distention Extremities: - - Edematous left arm, and BLE pitting edema, clubbing. Multiple purpuric and petechial lesions Neurological: Alert and Oriented x 3 - but drifting off during conversation, difficulty speaking whole sentences. - Assessment Assessment: This is a gravely ill 77 year old man who has multiple organ impairment involving cardiac, pulmonary, renal, hematologic and gastrointestinal systems, now with generalized extreme weakness and failure to thrive. He is still hoping to improve, and I encouraged him to continue to hope for the best but prepare for the worst. He does not want to end his life in a hospital, especially not on ventilatory support in the ICU, and we completed a MOLST form specifying no aggressive interventions. He would like to return home for the time he has remaining, and this could be arranged if he is stable enough to transfer. His HCP and SO, Radha, was present for this consultation and she feels prepared to take care of him at home. Right now he is working hard to breathe and I will start some SL Roxanol for respiratory comfort. - Plan Consult Plan (MU): Hospice - Time On Unit Date of Evaluation: 12/22/17 Hospice Consult Time in: 12:00 Hospice Consult Time Out: 13:25 Hospice Consult Time Total: 85
[2017-12-22] MEDS: Morphine ORAL CONCENTRATE* 5 MG/0.25 ML ORAL.SYRIN PO SCH ×3 (14:23→22:00)
[2017-12-22] MEDS: Insulin GLARGINE(*) 1 UNITS UNIT SUBCUT SCH (22:02)
[2017-12-23] MEDS: Morphine ORAL CONCENTRATE* 5 MG/0.25 ML ORAL.SYRIN PO SCH ×6 (02:04→21:41)
[2017-12-23] MEDS: Tiotropium CAP.INH* CAP.INH/18 MCG (USE ORDER SET !) INH SCH (07:27)
[2017-12-23] MEDS: Insulin LISPRO* 1 UNITS UNIT SUBCUT SCH ×7 (08:20→20:51)
[2017-12-23 08:40] LABS: ABS Basophils 0.1 10^3/ul (0-0.2); ABS Eosinophils 0.2 10^3/ul (0-0.6); ABS Lymphocytes 0.7 10^3/ul (1.0-4.8); ABS Monocytes 0.7 10^3/ul (0-0.8); ABS Nucleated RBC 0 10^3/ul; Eosinophil % 1.2 % (0-6); Hematocrit 23 % (42-52); Hemoglobin 7.8 g/dl (14.0-18.0); Lymphocyte % 5.1 % (25-47); Mean Corpuscular HGB Conc 34 g/dl (31-36); Mean Corpuscular Hemoglobin 29 pg (27-31); Mean Corpuscular Volume 85 fL (80-94); Mean Platelet Volume 7 um3 (7.4-10.4); Nucleated Red Blood Cells % 0; Platelet Count 153 10^3/ul (150-450); Red Blood Count 2.69 10^6/ul (4.0-5.4); Red Cell Distribution Width 17 % (10.5-15); White Blood Count 14.7 10^3/ul (3.5-10.8)
[2017-12-23 08:56] LABS: EGFR Non-African American 25.5 (>60)
[2017-12-23] MEDS: Amiodarone TAB* 200 MG PO SCH (09:50)
[2017-12-23] MEDS: Metoprolol Succinate XL TAB* 25 MG PO SCH ×2 (09:50→21:42)
[2017-12-23] MEDS: Aspirin EC Low Dose* 81 MG TAB.EC PO SCH (09:50)
[2017-12-23] MEDS: predniSONE TAB* 20 MG PO SCH (09:50)
[2017-12-23] MEDS: Clopidogrel TAB* 75 MG PO SCH (09:50)
[2017-12-23] MEDS: Insulin GLARGINE(*) 1 UNITS UNIT SUBCUT SCH (21:42)
[2017-12-23] MEDS: Collagenase 250 MG/GM OINT* 30 GM TOPICAL SCH (21:45)
[2017-12-24] MEDS: Morphine ORAL CONCENTRATE* 5 MG/0.25 ML ORAL.SYRIN PO SCH ×6 (02:20→22:26)
[2017-12-24] MEDS: Tiotropium CAP.INH* CAP.INH/18 MCG (USE ORDER SET !) INH SCH (07:15)
[2017-12-24] MEDS: Insulin LISPRO* 1 UNITS UNIT SUBCUT SCH ×7 (07:52→22:05)
[2017-12-24] MEDS: Amiodarone TAB* 200 MG PO SCH (08:42)
[2017-12-24] MEDS: Aspirin EC Low Dose* 81 MG TAB.EC PO SCH (08:42)
[2017-12-24] MEDS: Metoprolol Succinate XL TAB* 25 MG PO SCH ×2 (08:42→22:14)
[2017-12-24] MEDS: predniSONE TAB* 20 MG PO SCH (08:42)
[2017-12-24] MEDS: Clopidogrel TAB* 75 MG PO SCH (08:42)
[2017-12-24] MEDS: Collagenase 250 MG/GM OINT* 30 GM TOPICAL SCH (22:14)
[2017-12-24] MEDS: Insulin GLARGINE(*) 1 UNITS UNIT SUBCUT SCH (22:14)
[2017-12-25] MEDS: Morphine ORAL CONCENTRATE* 5 MG/0.25 ML ORAL.SYRIN PO SCH ×4 (02:31→09:37)
[2017-12-25] MEDS: Tiotropium CAP.INH* CAP.INH/18 MCG (USE ORDER SET !) INH SCH (07:55)
[2017-12-25 08:09] VITALS: BP 124/55
[2017-12-25] MEDS: Insulin LISPRO* 1 UNITS UNIT SUBCUT SCH ×2 (09:25→09:35)
[2017-12-25] MEDS: Metoprolol Succinate XL TAB* 25 MG PO SCH (09:38)
[2017-12-25] MEDS: predniSONE TAB* 20 MG PO SCH (09:38)
[2017-12-25] MEDS: Aspirin EC Low Dose* 81 MG TAB.EC PO SCH (09:38)
--- NOTE | 2017-12-25 12:34 | TRS ---
CC: Dr. Muniz; [facility] TRANSFER SUMMARY: DATE OF ADMISSION: 12/13/17 DATE OF TRANSFER: 12/25/17 TRANSFER DIAGNOSES: 1. Congestive heart failure. 2. Coronary artery disease status post coronary artery bypass. 3. Tachy-marino syndrome status post pacemaker placement. 4. Chronic kidney disease. 5. Type 2 diabetes mellitus. 6. History of paroxysmal atrial fibrillation. 7. Cholesterol emboli. 8. Weakness. 9. Pneumonia, treated. 10. Gastrointestinal bleeding. 11. Peripheral vascular disease. 12. Anemia, acute. 13. History of ventricular tachycardia, cardiac arrest. 14. History of hypertension. 15. Status post carotid endarterectomy. 16. History of thrombocytopenia post coronary artery bypass surgery. 17. Sacral decubitus. 18. Hyperlipidemia. 19. Thrombocytopenia, resolved. 20. Vitamin D deficiency. 21. Malnutrition. 22. Depression. HISTORY: Hugo Hanson is a 77-year-old man admitted with shortness of breath from [facility] where he had been sent for rehab after coronary artery bypass surgery with a complicated clinical course postoperatively. Please see the dictated admission note for details of the present illness, past medical history, family history, social and personal history, review of systems, and physical examination. LABORATORY DATA: CBC on 12/13/17: WBC 14.2, H and H 11/33, MCV 86, PLT 350, 000. White count subsequently came down to 8.7 on 12/20/17 and was up again to 14.7 on 12/23/17. Hematocrit went down as low as 21% on 12/22/17, was up to 23 on 12/23/17 post transfusion. PTT went up as high as 183.6 with anticoagulation on 12/20/17, subsequently came down. Chemistries on admission: Sodium 132, potassium 5.2, chloride 93, CO2 of 35, BUN and creatinine 77/1.69 , glucose 234, total bilirubin 0.7. Rest of the comprehensive metabolic panel was within normal limits except for a total protein of 5.3, albumin 2.5. BNP was 732. Procalcitonin was 0.2. A 25-hydroxy vitamin D level was 7.1, which is low. Prealbumin was 9. TSH was normal at 1.57. Cortisol level was normal at 24.27. BNP subsequently on 12/18/17 was 1302. Troponin was 0.04, then 0.02 , then 0.04, again was felt to be due to stress ischemia, then repeated was 0.03. Magnesium was normal at 2. Iron was 60, TIBC 174, transferrin 124. B12 normal at 504. Retic count corrected low at 0.7. Urinalysis: Yellow clear, specific gravity of 1.010, pH 5, blood 2+, wbc's 1+, rbc's 2+, hyaline casts present. Fractional excretion of sodium was 1.64. Pleural fluid: Red, bloody, wbc's 525; rbc's 104, 154; 25% neutrophils, 50% lymphocytes; 25% monocytes, fluid glucose 140, protein 1.4. LDH 261. Vancomycin levels were as noted in the EMR; 15.3, 27.2, 23.6, 17.6. Influenza swab was negative. Blood cultures were no growth. Urine culture was negative. Stool for occult blood was positive on 12/18/17. Blood type was A negative. The patient was transfused 3 units on 12/18/17, 12/20/17, 12/22/17. IMAGING: Chest x-ray on 12/13/17 showed vascular congestion, right upper lobe air space disease, bilateral pleural effusions. CT scan chest 12/15/17 showed moderate- sized pericardial effusion, bilateral pleural effusions, compressive atelectasis of the lung bases, consolidation of the right lower lobe, advanced emphysema, atherosclerosis. Chest x-ray 12/19/17 showed overall worsening aeration, left lung pleural effusion, patchy densities over the right lung. V/ Q lung scan on 12/19/17 showed multiple predominant small subsegmental perfusion defects, possible pulmonary emboli, another spot suggested pneumonia. Venous Doppler lower extremities showed chronic-appearing thrombosis of the right great saphenous vein, right popliteal vein, left popliteal vein and a possibly nonocclusive potential acute thrombus of the left profunda femoral vein. EKG 12/13/17: Sinus rhythm, possible left atrial enlargement borderline low voltage, ST-T wave changes. Echocardiogram 12/13/17 showed LVH, EF 45% to 50 %, hypokinesis of the interventricular septum due to surgery, pacemaker, trace mitral regurgitation, trace to mild tricuspid regurgitation, evidence of pulmonary hypertension may be underestimated, mild pulmonic regurgitation. OPERATIVE REPORT: Surgery: Thoracentesis. 1000 cc bloody fluid removed from the right pleural space. CONSULTATIONS: Cardiology, Dr. Light, felt that the patient had multifactorial reasons for shortness of breath including decreased ejection fraction, pneumonia, pleural effusions. He recommended continuing cardiac medications, treating pneumonia, increasing diuretics. Palliative care consultation, 12/22/17, Dr. Saleh felt that the patient had multiple organ involvement, generalized weakness and failure to thrive. He did not want to end his life in the hospital. A MOLST form specified no aggressive interventions was completed. He wanted to remain home. She agreed for hospice to admit him at home. She started him on Roxanol for respiratory symptoms, which seemed to help. HOSPITAL COURSE: The patient was admitted. His pneumonia was treated with vancomycin, azithromycin, and cefepime. His insulin dose was adjusted for hyperglycemia with increase in his Lantus. His diuretics were adjusted, increased and then they were stopped as his kidney function got worse. He underwent a thoracentesis (see above). His sacral decubitus was addressed by the wound clinic, started on Santyl. He was at one point started on heparin for possible pulmonary emboli, but then this was stopped when he had a GI bleed. Clopidogrel was also stopped because of GI bleeding. He was left on the baby aspirin. At one point, his atorvastatin was stopped, but then will be restarted. He was kept on steroids because of a previous history of thrombocytopenia at [place] prior to coming back. This is being discontinued at the time of transfer. He maintained on his amiodarone, had no arrhythmia. It is possible this is contributing to his symptoms of weakness and not feeling well, so this is going to be stopped at the time of discharge. The plan had been for him to go home, but his significant other, Radha Palmer, did not feel that she could manage him at home and I agreed. He also wanted to try to get well and to go back to [facility] where he had been prior to coming back to the hospital. The plan was to send him back there and not to go on hospice. He will be DNR, however. We will order physical therapy. I had not ordered labs because of him being for the plan for him to be in hospice, but this will be rechecked this week. At this point, it seems reasonable to continue him on the following regimen, although these may need to be adjusted with time. Morphine concentrate 5 mg p.o. q.4 hours p.r.n. shortness of breath or pain, metoprolol XL 25 mg p.o. b.i.d., Spiriva 1 inhalation daily, sertraline 25 mg p.o. daily, acetaminophen 650 p.o. q.4 hours p.r.n. mild pain, aspirin 81 mg p.o. daily, Lantus 12 units subcu q.h.s., Santyl ointment topical daily, atorvastatin 20 mg p.o. daily, torsemide 40 mg p.o. daily, vitamin D2 at 50,000 units p.o. weekly x8 weeks. He is to have a CBC, CMP drawn this week. He is being started on medication for depression as his significant other suggested that he is quite depressed and would like that done. His amiodarone is being discontinued in case this is causing him to not feel well. He has not had any atrial fibrillation during his admission here. At the time of discharge, he appears quite weak. He needs help sitting up in bed. His skin shows petechiae remaining on his hands and his feet. His chest shows diminished breath sounds at the bases. Heart is regular. Abdomen is nontender. Extremities show 1+ edema of the upper extremities, trace edema of the lower extremities with petechiae with scabbing of the feet and petechiae of the palms. His diet is to be no added-salts. He should get nutritional supplementation. He is allergic to WHEAT. Activity is up with pediatric physician assistant. He is to get physical therapy. Dr. Wesley will be his attending at [facility]. CBC and CMP to be done this week. [id number]/[facility] #: [id number] [facility]
== END 2017-12-25 12:04 | DRG 291 ==
LOC: ED 15:09 → MEDTELE 19:41
PROVIDERS: ADMIT Internal Medicine; ATTEND Internal Medicine Geriatric Medicine
PROC: 0W993ZZ Drainage of Right Pleural Cavity, Percutaneous Approach (ICD-10-PCS; principal; 2017-12-16)
PROC: 30233N1 Transfusion of Nonautologous Red Blood Cells into Peripheral Vein, Percutaneous Approach (ICD-10-PCS; 2017-12-18)
DX: I13.0 Hypertensive heart and chronic kidney disease with heart failure and stage 1 through stage 4 chronic kidney disease, or unspecified chronic kidney disease (principal); J18.9 Pneumonia, unspecified organism; I26.99 Other pulmonary embolism without acute cor pulmonale; L89.152 Pressure ulcer of sacral region, stage 2; I75.89 Atheroembolism of other site; E46 Unspecified protein-calorie malnutrition; L89.159 Pressure ulcer of sacral region, unspecified stage; J90 Pleural effusion, not elsewhere classified; L89.153 Pressure ulcer of sacral region, stage 3; I50.43 Acute on chronic combined systolic (congestive) and diastolic (congestive) heart failure; N17.9 Acute kidney failure, unspecified; E27.40 Unspecified adrenocortical insufficiency; K92.2 Gastrointestinal hemorrhage, unspecified; I95.9 Hypotension, unspecified; E11.21 Type 2 diabetes mellitus with diabetic nephropathy; E11.22 Type 2 diabetes mellitus with diabetic chronic kidney disease; E11.51 Type 2 diabetes mellitus with diabetic peripheral angiopathy without gangrene; D63.1 Anemia in chronic kidney disease; N18.3 Chronic kidney disease, stage 3 (moderate); I27.20 Pulmonary hypertension, unspecified; R62.7 Adult failure to thrive; E11.3599 Type 2 diabetes mellitus with proliferative diabetic retinopathy without macular edema, unspecified eye; J43.9 Emphysema, unspecified; R23.3 Spontaneous ecchymoses; I48.0 Paroxysmal atrial fibrillation; E78.00 Pure hypercholesterolemia, unspecified; I25.10 Atherosclerotic heart disease of native coronary artery without angina pectoris; E11.65 Type 2 diabetes mellitus with hyperglycemia; E11.649 Type 2 diabetes mellitus with hypoglycemia without coma; L53.8 Other specified erythematous conditions; D69.6 Thrombocytopenia, unspecified; E55.9 Vitamin D deficiency, unspecified; F32.9 Major depressive disorder, single episode, unspecified; N40.0 Benign prostatic hyperplasia without lower urinary tract symptoms; I08.1 Rheumatic disorders of both mitral and tricuspid valves; M19.90 Unspecified osteoarthritis, unspecified site; Z87.891 Personal history of nicotine dependence; Z95.1 Presence of aortocoronary bypass graft; Z86.74 Personal history of sudden cardiac arrest; I25.2 Old myocardial infarction; Z95.0 Presence of cardiac pacemaker; Z91.018 Allergy to other foods; Z86.73 Personal history of transient ischemic attack (TIA), and cerebral infarction without residual deficits; Z82.49 Family history of ischemic heart disease and other diseases of the circulatory system; Z68.21 Body mass index [BMI] 21.0-21.9, adult; Z79.4 Long term (current) use of insulin
CPT/HCPCS: 36415; 71046; 71250; 78582; 80048; 80053; 80076; 80202; 81003; 81015; 82270; 82306; 82533; 82550; 82553; 82565; 82570; 82607; 82945; 83540; 83550; 83615; 83735; 83880; 83986; 84134; 84145; 84157; 84300; 84443; 84484; 84520; 85014; 85018; 85025; 85045; 85610; 85652; 85730; 86140; 86850; 86900; 86901; 86922; 87040; 87070; 87086; 87205; 87502; 89051; 93005; 93306; 93970; 94640; 94760; 99283; A9270-GY; A9540; A9558; C8929; G8978-GP-CN; G8979-GP-CK; G8979-GP-CM; J0456; J0692; J1644; J1940; J3370; J7512; P9040